=== PATIENT | male | born 1965 | race Caucasian/White ===

== ENCOUNTER 2016-03-07 02:35 | Inpatient (IN) | payer OTHER ==
[2016-03-07] MEDS ORDERED: SODIUM CHLORIDE 0.9% 1,000 ML with MVI, ADULT NO.4 WITH VIT K 10 ML, THIAMINE 100 MG, F... IV ONE ×4 (02:54)
[2016-03-07] MEDS ORDERED: SODIUM CHLORIDE 0.9% 500 ML IV STA (02:55)
--- NOTE | 2016-03-07 03:06 | ED ---
Chest Pain HPI - General Chief Complaint: Chest Pain Stated Complaint: Chest Pain Time Seen by Provider: 03/07/16 02:45 Source: patient Mode of arrival: wheelchair Limitations: no limitations - History of Present Illness MD Complaint: chest pain Onset/Timin -: days(s) Onset: during rest Pain Location: substernal Pain Radiation: LUE Severity: severe Quality: other (Not able to describe) Consistency: constant Improves With: nothing Worsens With: nothing - Related Data Home Medications Medication Instructions Recorded Confirmed No Known Home Medications [No 03/07/16 03/07/16 Known Home Medications] Allergies Allergy/AdvReac Type Severity Reaction Status Date / Time No Known Allergies Allergy Verified 03/07/16 02:43 Review of Systems ROS Statement: Those systems with pertinent positive or pertinent negative responses have been documented in the HPI. ROS Other: All systems not noted in ROS Statement are negative. Constitutional: Denies: fever, chills Respiratory: Denies: cough, dyspnea Cardiovascular: Reports: chest pain. Denies: palpitations, edema, syncope Gastrointestinal: Reports: nausea. Denies: abdominal pain, vomiting Genitourinary: Denies: dysuria, hematuria Musculoskeletal: Denies: back pain Skin: Denies: rash Neurological: Denies: headache, weakness, numbness Psychiatric: Denies: anxiety EKG Findings - EKG Results: EKG: interpreted by ANA, sinus rhythm, normal axis EKG shows: tachycardia (Rate approximately 105 bpm) - Blocks, [place], Hypertrophy, ST Abn: AV and intraventricular conduction: left anterior fascicular block - OH, Pacemaker, Normal: Myocardial infarction: septal OH (old age or indeterminate) Past Medical History Past Medical History: GERD/Reflux Additional Past Medical History / Comment(s): SEVERAL ADMISSIONS FOR ETOH INTOXICATION/WITHDRAWL AND C/P. Other HX: alcoholism, withdrawal tremors, withdrawal seizure, gastritis, upper GI bleed thought to be due to gastritis, hypomagnesemia, hypokalemia, tinnitis bilaterally. History of Any Multi-Drug Resistant Organisms: None Reported Past Surgical History: No Surgical Hx Reported, Unable to Obtain Additional Past Surgical History / Comment(s): FATTY TUMOR REMOVED FROM BACK, ORAL SX-WISDOM TEETH REMOVED. Past Anesthesia/Blood Transfusion Reactions: No Reported Reaction Past Psychological History: Anxiety, Depression Additional Psychological History / Comment(s): Pt resides alone. He is independent. Has had suicidal ideations in the past. Smoking Status: Current every day smoker Past Alcohol Use History: Abuse, Heavy Additional Past Alcohol Use History / Comment(s): smoked some marijuana as a teen and none since.pt started smoking in 1978 smokes 1.5 ppd. admits to drinking 1 fifth of vodka per day. Past Drug Use History: None Reported Additional Drug Use History / Comment(s): Smoked marijuana as a teen. - Past Family History Father History Unknown: Yes Family Medical History: Cancer, Hypertension, Myocardial Infarction (OH) Additional Family Medical History / Comment(s): Father of lung cancer at the age of 57yrs. He had a OH at the age of 49 yrs. Mother Family Medical History: Dementia Additional Family Medical History / Comment(s): Mother is 74 yrs old. General Exam Limitations: no limitations General appearance: alert, appears intoxicated, other (Tremulous) Head exam: Present: atraumatic, normocephalic Eye exam: Present: normal appearance, PERRL, EOMI, nystagmus. Absent: scleral icterus, conjunctival injection ENT exam: Present: mucous membranes dry Neck exam: Present: normal inspection, full ROM Respiratory exam: Present: wheezes (Mild expiratory). Absent: normal lung sounds bilaterally, respiratory distress, rales, rhonchi, stridor, decreased breath sounds, prolonged expiratory Cardiovascular Exam: Present: tachycardia, normal heart sounds. Absent: regular rate, systolic murmur, diastolic murmur, rubs, gallop GI/Abdominal exam: Present: soft, organomegaly. Absent: distended, tenderness, guarding, rebound, pulsatile mass, hernia Extremities exam: Present: normal inspection, normal capillary refill. Absent: pedal edema, calf tenderness Back exam: Present: normal inspection. Absent: CVA tenderness (R), CVA tenderness (L) Neurological exam: Present: alert Skin exam: Present: warm, dry, intact, normal color. Absent: rash, cyanosis, diaphoretic, erythema, petechiae, pallor, mottled Course Vital Signs 03/07/16 03/07/16 03/07/16 02:41 03:18 05:49 Temperature 98.5 F 97.8 F Pulse Rate 120 H 105 H 78 Respiratory 20 20 18 Rate Blood Pressure 123/84 131/80 148/72 O2 Sat by Pulse 94 L 98 94 L Oximetry Disposition Clinical Impression: Chest pain, Alcohol intoxication, Hypokalemia Disposition: ADMITTED IP TO THIS HOSP Condition: Poor Referrals: None,Stated [Primary Care Provider] - 1-2 days
[2016-03-07 03:20] LABS: CHCM 35.1; HDW 2.51; MCH 33.1 pg (25.0-35.0); MCV 97.3 fL (80.0-100.0); RBC 4.52 m/uL (4.30-5.90); RDW 13.2 % (11.5-15.5); WBC 3.4 k/uL (3.8-10.6); WBC (Perox) 3.34
[2016-03-07] MEDS ORDERED: MORPHINE SULFATE 4 MG/ML SYRINGE IV STA (03:32)
[2016-03-07 03:35] LABS: ALT 49 U/L (21-72); AST 52 U/L (17-59); Alkaline Phosphatase 77 U/L (38-126); Anion Gap 20 mmol/L; Blood Urea Nitrogen 5 mg/dL (9-20); Calcium 9.2 mg/dL (8.4-10.2); Carbon Dioxide 26 mmol/L (22-30); Chloride 104 mmol/L (98-107); Glucose 122 mg/dL (74-99); Magnesium 1.9 mg/dL (1.6-2.3); Non-African American GFR(MDRD) >60 (>60 ml/min/1.73 sqM); Potassium 3.1 mmol/L (3.5-5.1); Sodium 150 mmol/L (137-145); Total Bilirubin 0.4 mg/dL (0.2-1.3); Total Protein 7.6 g/dL (6.3-8.2)
[2016-03-07 03:45] LABS: Alcohol 413 mg/dL
--- NOTE | 2016-03-07 03:55 | XR ---
EXAMINATION TYPE: XR chest 1V portable DATE OF EXAM: 03/07/2016 3:03 AM COMPARISON: February 12, 2016 HISTORY: Chest pain TECHNIQUE: Single frontal view of the chest is obtained. FINDINGS: There is no focal air space opacity, pleural effusion, or pneumothorax seen. The cardiac silhouette size is within normal limits. The osseous structures are intact. IMPRESSION: 1. No acute process. 2. No significant interval change.
[2016-03-07 04:10] LABS: Add Differential Manual Differential
[2016-03-07 04:15] LABS: Manual Review Performed; Nucleated Red Blood Cells 0 /100 WBC (0-0); Total Cells Counted 100
[2016-03-07] MEDS ORDERED: RX INFO: IV CONTRAST WAS GIVEN 1 EACH MISC MISCELLANE PRN (05:13)
[2016-03-07] MEDS ORDERED: POTASSIUM CHLORIDE ER 20 MEQ TAB.ER PO STA (05:14)
[2016-03-07] MEDS ORDERED: LORazepam 2 MG/ML SYRINGE IV STA (05:42)
[2016-03-07] MEDS ORDERED: NITROGLYCERIN SL TABS 0.4 MG TAB SUBLINGUAL PRN (06:15)
[2016-03-07] MEDS ORDERED: SODIUM CHLORIDE 0.9% 1,000 ML IV SCH (06:15)
[2016-03-07] MEDS ORDERED: THIAMINE 100 MG/ML 2 ML VIAL IM STA (06:19)
[2016-03-07] MEDS ORDERED: LORazepam 2 MG/ML SYRINGE IV PRN (06:19)
--- NOTE | 2016-03-07 06:28 | CT ---
EXAMINATION TYPE: CT chest angio for PE DATE OF EXAM: 03/07/2016 6:02 AM COMPARISON: 12/30/2015 HISTORY: chest and left arm pain, elevated d-dimer R/O PE, EtOH. CT DLP: 501 mGycm Automated exposure control for dose reduction was used. CONTRAST: CT Chest for pulmonary embolism performed with with IV Contrast, patient injected with 90ml injected 10ml wasted mL of Omnipaque 350. FINDINGS: LUNGS: The lungs are grossly clear, there is no concerning parenchymal mass or nodule identified. Mi ld atelectasis and scarring is suggested in both lung bases. Biapical emphysematous changes are noted .. There is no pleural effusion or pneumothorax seen. The tracheobronchial tree is patent. MEDIASTINUM: There is satisfactory enhancement of the pulmonary artery and its branches, there is no CT evidence for pulmonary embolism. The ascending aorta measures 4.5 cm in greatest AP diameter with stable mild aneurysmal dilatation. There are no greater than 1 cm hilar or mediastinal lymph nodes. No pericardial effusion is seen. OTHER: No additional significant abnormality is seen. IMPRESSION: 1. No evidence of acute pulmonary embolism. 2. No focal lung consolidation. 3. Emphysematous changes in both lungs with mild atelectasis and scarring in both lung bases. 4. Stable 4.5 cm aneurysm of ascending aorta.
[2016-03-07] MEDS ORDERED: METOPROLOL TARTRATE 25 MG TAB PO SCH (09:00)
[2016-03-07 09:52] LABS: Creatine Kinase MB 0.7 ng/mL (0.0-2.4); Troponin I 0.032 ng/mL (0.000-0.034)
[2016-03-07] MEDS: LORazepam 2 MG/ML SYRINGE IV PRN ×7 (10:24→22:57)
[2016-03-07 10:34] VITALS: BMI 25.4
--- NOTE | 2016-03-07 14:07 | P.CRDCN ---
History of Present Illness History of present illness: Patient readmitted with chest discomfort and elevated alcohol level once again he was here last month He complains of discomfort in the chest and the left costochondral junction Alcohol level was elevated ECG is normal Cardiac enzymes are normal Review of systems: No fever chills or rigors, no cough, phlegm or expectoration , no nausea, vomiting or diarrhea, no hematuria, dysuria, no musculoskeletal complaints, no strokes or seizures, no skin lesions. He is still disoriented and groggy On examination Temperature 98.1, respirations 26, blood pressure 148/72 mmHg And neck examination is normal Heart sounds are normal Breath sounds are normal Extremities warm no edema Impression Acute alcoholism Atypical musculoskeletal chest discomfort Normal cardiac enzymes Plan Stop beta blockers Clonidine patch TTS 1 Management of alcoholism per medical team Past Medical History Past Medical History: GERD/Reflux Additional Past Medical History / Comment(s): SEVERAL ADMISSIONS FOR ETOH INTOXICATION/WITHDRAWL AND C/P. Other HX: alcoholism, withdrawal tremors, withdrawal seizure, gastritis, upper GI bleed thought to be due to gastritis, hypomagnesemia, hypokalemia, tinnitis bilaterally. History of Any Multi-Drug Resistant Organisms: None Reported Past Surgical History: No Surgical Hx Reported, Unable to Obtain Additional Past Surgical History / Comment(s): FATTY TUMOR REMOVED FROM BACK, ORAL SX-WISDOM TEETH REMOVED. Past Anesthesia/Blood Transfusion Reactions: No Reported Reaction Past Psychological History: Anxiety, Depression Additional Psychological History / Comment(s): Pt resides alone. He is independent. Has had suicidal ideations in the past. Smoking Status: Current every day smoker Past Alcohol Use History: Abuse, Heavy Additional Past Alcohol Use History / Comment(s): smoked some marijuana as a teen and none since.pt started smoking in 1978 smokes 1.5 ppd. admits to drinking 1 fifth of vodka per day. Past Drug Use History: None Reported Additional Drug Use History / Comment(s): Smoked marijuana as a teen. - Past Family History Father History Unknown: Yes Family Medical History: Cancer, Hypertension, Myocardial Infarction (DC) Additional Family Medical History / Comment(s): Father of lung cancer at the age of 57yrs. He had a DC at the age of 49 yrs. Mother Family Medical History: Dementia Additional Family Medical History / Comment(s): Mother is 74 yrs old. Medications and Allergies Home Medications Medication Instructions Recorded Confirmed Type Metoprolol Tartrate [Lopressor] 12.5 mg PO BID 03/07/16 03/07/16 History Allergies Allergy/AdvReac Type Severity Reaction Status Date / Time No Known Allergies Allergy Verified 03/07/16 11:14 Physical Exam Vitals: Vital Signs Temp Pulse Resp BP Pulse Ox 03/07/16 12:00 98.1 F 96 16 163/98 93 L 03/07/16 08:00 85 18 03/07/16 07:27 97.9 F 85 18 152/92 90 L Intake and Output 03/06/16 03/07/16 03/07/16 22:59 06:59 14:59 Output Total 250 Balance -250 Output: Urine 250 Other: Weight 94.8 kg Patient Weight 03/08/16 06:59 Weight 94.8 kg Results 03/07/16 03:12 03/07/16 03:12 Cardiac Enzymes 03/07/16 Range/Units 08:37 CK-MB (CK-2) 0.7 (0.0-2.4) ng/mL Troponin I 0.032 (0.000-0.034) ng/mL Current Medications Generic Name Dose Route Start Last Admin Trade Name Freq PRN Reason Stop Dose Admin Aspirin 325 mg 03/08/16 09:00 Aspirin PO DAILY HAILY Sodium Chloride 1,000 mls @ 100 mls/hr 03/07/16 06:15 03/07/16 10:24 Saline 0.9% IV 100 mls/hr .Q10H HAILY Administration Lorazepam 1 mg 03/07/16 06:19 Ativan IV Q2HR PRN CIWA 8 or 9 Lorazepam 1 mg 03/07/16 06:19 Ativan IV Q1HR PRN CIWA 10 to 15 Lorazepam 2 mg 03/07/16 06:19 03/07/16 12:35 Ativan IV 2 mg Q1HR PRN Administration CIWA 16 or higher Metoprolol Tartrate 25 mg 03/07/16 09:00 03/07/16 11:19 Lopressor PO 25 mg BID HAILY Administration Miscellaneous Information 1 each 03/07/16 05:13 03/07/16 05:49 Rx Info: Iv Contrast Was Given MISCELLANE 03/09/16 05:13 1 each DAILY PRN Administration Per Protocol Nitroglycerin 0.4 mg 03/07/16 06:15 Nitrostat SUBLINGUAL Q5M PRN Chest Pain Thiamine HCl 100 mg 03/07/16 17:00 Vitamin B-1 PO BID@1200,1700 HAILY Intake and Output 03/06/16 03/07/16 03/07/16 22:59 06:59 14:59 Output Total 250 Balance -250 Output: Urine 250 Other: Weight 94.8 kg Patient Weight 03/08/16 06:59 Weight 94.8 kg
[2016-03-07 16:03] LABS: Creatine Kinase MB 0.8 ng/mL (0.0-2.4); Troponin I 0.021 ng/mL (0.000-0.034)
[2016-03-07] MEDS: THIAMINE 100 MG TAB PO SCH (16:37)
[2016-03-07] MEDS: SODIUM CHLORIDE 0.45% 1,000 ML IV SCH (19:55)
[2016-03-07] MEDS ORDERED: cloNIDine 0.1 MG/24HR PATCH 1 PATCH PATCH TRANSDERM SCH (20:45)
[2016-03-07] MEDS: HEPARIN SODIUM,PORCINE 5,000 UNIT/ML 1 ML VIAL SQ SCH (22:39)
[2016-03-07] MEDS: NICOTINE 14MG/24HR PATCH TRANSDERM SCH (23:33)
[2016-03-08] MEDS: LORazepam 2 MG/ML SYRINGE IV PRN ×9 (00:09→23:39)
[2016-03-08 05:39] LABS: Basophils # (A) 0.1 k/uL (0-0.2); Basophils % (A) 1 %; CH 33.9; CHCM 34.9; Eosinophils # (A) 0.1 k/uL (0-0.7); Eosinophils % (A) 2 %; HCT 39.2 % (39.0-53.0); HGB 13.1 gm/dL (13.0-17.5); Luc # (Auto) 0.07; Luc % (Auto) 2; Lymphocytes # (A) 1.1 k/uL (1.0-4.8); Lymphocytes % (A) 31 %; MCH 32.7 pg (25.0-35.0); MCHC 33.5 g/dL (31.0-37.0); MCV 97.5 fL (80.0-100.0); Mean Platelet Volume 7.6; Monocytes # (A) 0.3 k/uL (0-1.0); Monocytes % (A) 7 %; Neutrophils # (A) 2.1 k/uL (1.3-7.7); Neutrophils % (A) 57 %; RBC 4.02 m/uL (4.30-5.90); RDW 12.7 % (11.5-15.5); WBC 3.7 k/uL (3.8-10.6); WBC (Perox) 3.89
[2016-03-08 05:51] LABS: Anion Gap 9 mmol/L; Blood Urea Nitrogen 3 mg/dL (9-20); Calcium 9.3 mg/dL (8.4-10.2); Carbon Dioxide 28 mmol/L (22-30); Chloride 101 mmol/L (98-107); Cholesterol 184 mg/dL (<200); Glucose 82 mg/dL (74-99); HDL Cholesterol 78 mg/dL (40-60); Non-African American GFR(MDRD) >60 (>60 ml/min/1.73 sqM); Sodium 138 mmol/L (137-145); Triglycerides 159 mg/dL (<150)
[2016-03-08] MEDS: SODIUM CHLORIDE 0.45% 1,000 ML IV SCH ×3 (06:20→21:43)
[2016-03-08] MEDS ORDERED: Potassium Replacement Protocol 1 EACH MISC MISCELLANE PRN (06:51)
[2016-03-08] MEDS ORDERED: ASPIRIN 325 MG TAB PO SCH (09:00)
[2016-03-08] MEDS: THIAMINE 100 MG TAB PO SCH ×2 (09:28→16:07)
[2016-03-08] MEDS: HEPARIN SODIUM,PORCINE 5,000 UNIT/ML 1 ML VIAL SQ SCH ×3 (09:28→22:08)
[2016-03-08] MEDS: NICOTINE 14MG/24HR PATCH TRANSDERM SCH (09:28)
[2016-03-08] MEDS: POTASSIUM CHLORIDE ER 20 MEQ TAB.ER PO SCH ×4 (09:28→23:40)
--- NOTE | 2016-03-08 11:51 | HP ---
DATE OF ADMISSION: Chief complaint is chest pain. HISTORY OF ILLNESS: Mr. Bryant is a 50-year-old male with known history of alcohol abuse and no other medical problems, was admitted to the hospital with acute alcohol intoxication and complaints of chest pain. Patient apparently has been having chest pain for the past 3 days, substernal, radiation to the left upper extremity and constant. No history of nausea or vomiting. Patient was found to have acute alcohol intoxication, elevated alcohol levels to 413 on admission. Otherwise, could not provide much history. Patient very lethargic and groggy at this time but patient is awake, alert, and is saturating well on room air. Serial EKGs and troponins are negative. Chest x-ray showed no acute process. No interval significant change. Patient does have elevated d-dimer and subsequent CT angiogram showed no pulmonary embolism. Patient does have stable 4.5 cm aneurysm of the ascending aorta. Complete review of systems could not be obtained from the patient. PAST MEDICAL HISTORY: GERD, previous admission with alcohol intoxication, history of alcohol withdrawal seizure, gastritis, upper GI bleed thought to be due to gastritis, hypomagnesemia, hypokalemia and tinnitus bilaterally. PAST SURGICAL HISTORY: Fatty tumor removed from the back, oral surgery wisdom tooth removed. PSYCHOSOCIAL HISTORY: Anxiety and depression. SOCIAL HISTORY: Currently an everyday smoker, smokes marijuana as a teen and none since. Patient started smoking in 1978, smokes 1.5 packs per day. Patient drinks one-fifth of vodka per day. FAMILY HISTORY: Father had cancer, hypertension, and SC. Father of lung cancer at the age of 57 years, had SC at the age of 49 years. Mother had dementia. Mother is a 74-year-old. No known drug allergies. HOME MEDICATIONS: None. PHYSICAL EXAMINATION: A 50-year-old male lying in the bed, awake, alert, very lethargic and drowsy, could not provide any history at this time. VITALS: Blood pressure 163/98, pulse is 90, respirations 16, temperature afebrile, pulse ox 93% on room air. HEENT: Atraumatic, normocephalic. Neck is supple. No JVD. CVS EXAM: S1, S2 heard. No murmurs, no gallop. LUNGS: Bilateral air entry is present. Rhonchi positive. Nonlabored breathing. No wheezing. Abdomen is soft, nontender. Bowel sounds are present. NEURO: Alert and oriented x3. No focal neurologic deficits. Cranial nerves grossly intact. EXTREMITIES: No edema. Pulses palpable bilaterally, no clubbing or cyanosis. [employer] HELPER: Awake, alert, oriented x3, but drowsy. PSYCHIATRIC: Cooperative, could not be evaluated completely. LABORATORY DATA: WBC 3.4, hemoglobin 15.0, platelets 363. D-dimer is 1.17. Sodium 150, potassium 3.1, chloride 104, bicarb is 26. BUN 5, creatinine 0.8, troponin 0.021, 0.032, and 0.021, serum alcohol is 413. EKG is normal sinus rhythm. Chest x-ray, no acute tearing. IMPRESSION: 1. Acute alcohol intoxication, will monitor for alcohol withdrawal symptoms. 2. Chest discomfort, most likely musculoskeletal. Serial EKGs and troponins are negative. 3. Hypernatremia secondary to volume depletion and dehydration. 4. Hypokalemia. 5. Previous history of alcohol intoxication and withdrawal symptoms. 6. History of alcohol gastritis with elevated d-dimer. CT angiogram is negative for pulmonary embolism. 7. Stable 4.5 cm aneurysm of the ascending aorta. 8. Deep venous thrombosis prophylaxis. DISCUSSION AND PLAN: Patient will be continued on IV fluids, patient ( ) 0.45% saline at 75 mL/h. Will continue the thiamine and multivitamins. Continue with the CIWA protocol for alcohol withdrawal symptoms and continue with the current management and further recommendations based on the clinical course.
[2016-03-08] MEDS ORDERED: CALCIUM CARBONATE 500 MG CHEWABLE PO PRN (19:48)
[2016-03-08 20:59] VITALS: RESP 16
[2016-03-08] MEDS ORDERED: SODIUM CHLORIDE 0.9% 1,000 ML IV SCH (23:30)
[2016-03-09] MEDS: LORazepam 2 MG/ML SYRINGE IV PRN ×3 (01:22→06:18)
[2016-03-09 07:56] LABS: Anion Gap 13 mmol/L; Blood Urea Nitrogen 4 mg/dL (9-20); Calcium 9.4 mg/dL (8.4-10.2); Carbon Dioxide 23 mmol/L (22-30); Chloride 104 mmol/L (98-107); Glucose 87 mg/dL (74-99); Non-African American GFR(MDRD) >60 (>60 ml/min/1.73 sqM); Potassium 3.5 mmol/L (3.5-5.1); Sodium 140 mmol/L (137-145)
[2016-03-09 08:05] VITALS: BP 146/98; PULSE 72; TEMP 98.1
[2016-03-09] MEDS: HEPARIN SODIUM,PORCINE 5,000 UNIT/ML 1 ML VIAL SQ SCH (09:17)
--- NOTE | 2016-03-09 10:25 | PN ---
DATE OF SERVICE: 03/08/2016 INTERVAL HISTORY: Mr. Bryant is a 50-year-old male with known history of alcohol abuse, was admitted to the hospital with complaints of chest pain and alcohol intoxication. Currently, patient is recently requiring Ativan IV and very drowsy and groggy, could not provide much history. Denied any chest or short of breath. No fever. No chills. No acute overnight issues. Complete review of systems could not be obtained from the patient. Current medications reviewed. PHYSICAL EXAMINATION: 50 -year-old male lying in bed comfortably, alert and oriented times three, appears to be in no apparent distress. Patient is very drowsy. VITALS: Blood pressure is 149/103. respiratory rate ( ) heart rate 74, respiration 18, temperature afebrile, pulse ox 92% on room air. HEENT: Atraumatic. Normocephalic. Neck is supple. No JVD. CVS: S1, S2 heard. No murmurs, no gallop. LUNGS: Bilateral air entry is present. No wheezing. No crackles. Nonlabored breathing. ABDOMEN: Soft, nontender, bowel sounds present. 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 Very drowsy. Able to move all his extremities. EXTREMITIES: No edema. Pulses palpable bilaterally. No clubbing. No cyanosis. PSYCHIATRIC: Cooperative. LABORATORY DATA: Reviewed sodium 138, potassium 3.0, chloride 101, bicarb is 28. BUN 3, creatinine 0.7. WBC 3.7, hemoglobin 13.1, platelets 261. IMPRESSION: 1. Acute alcohol intoxication and alcohol withdrawals requiring Ativan IV. 2. Chest discomfort most likely musculoskeletal, resolved. 3. Acute coronary syndrome serial EKGs and troponins are negative. 4. Hyponatremia secondary to volume depletion, dehydration, resolved now. 5. Hypokalemia. We will continue to replace potassium. 6. Previous history of alcohol intoxication and withdrawal symptoms and multiple admissions. 7. History of alcoholic gastritis. 8. Elevated d-dimer. CT angiogram negative for pulmonary embolism. 9. Stable 4.5 cm aneurysm ascending aorta. 10. Deep venous thrombosis prophylaxis. DISCUSSION AND PLAN: Continue with IV fluids and IV fluids will be changed to normal saline now and continue with the thiamine multivitamins and continue CIWA protocol for alcohol withdrawal symptoms and continue current management and further recommendations depending on clinical course. [facility]
--- NOTE | 2016-04-01 20:57 | DS ---
DATE OF ADMISSION: 03/08/2016 DATE OF DISCHARGE: 03/09/2016 Left AGAINST MEDICAL ADVICE on 03/09/2016 DISCHARGE DIAGNOSES: 1. Acute alcohol intoxication and alcohol withdrawals. 2. Musculoskeletal chest pain, improved. 3. History of coronary artery disease. 4. Hypernatremia secondary to volume depletion and dehydration. 5. Hypokalemia. 6. Previous history of alcohol intoxication and withdrawal symptoms and multiple admissions. 7. History of alcoholic gastritis. 8. Elevated d-dimer, CT angiogram negative for pulmonary embolism. 9. Stable 4.5 cm aneurysm of the ascending aorta. 10. Deep venous thrombosis prophylaxis with heparin subcu. HOSPITAL COURSE: Mr. Bryant is a 48-year-old male admitted to the hospital with acute alcohol intoxication and atypical chest pain. Serial EKGs and troponins are negative. Patient is being monitored for alcohol withdrawal symptoms and replacing potassium. Currently the patient was improving symptomatically and was still requiring IV Ativan. Today morning, the patient decided to leave AGAINST MEDICAL ADVICE and left AGAINST MEDICAL ADVICE by signing the AGAINST MEDICAL ADVICE form. The patient advised to follow with primary care physician and counseled for alcohol abuse. The patient left AMA on 03/09/2016.
== END 2016-03-09 08:17 | disposition left against medical advice (07) | DRG 894 ==
LOC: EC 02:35 → 3OBS 06:16 → OBSVTOIN 03-08 14:58
PROVIDERS: ADMIT Hospitalist; ATTEND Hospitalist
DX: F10.239 Alcohol dependence with withdrawal, unspecified (principal); E87.1 Hypo-osmolality and hyponatremia; I71.2 Thoracic aortic aneurysm, without rupture; E86.0 Dehydration; F10.229 Alcohol dependence with intoxication, unspecified; R07.89 Other chest pain; E87.6 Hypokalemia; F17.200 Nicotine dependence, unspecified, uncomplicated; Z82.49 Family history of ischemic heart disease and other diseases of the circulatory system
CPT/HCPCS: 36415; 71010; 71275; 80048; 80053; 80061; 80320; 82550; 82553; 83735; 84132; 84484; 85025; 85379; 93005; 94760; 96361; 96365; 96366; 96372; 96375; 96376; 99285

== ENCOUNTER 2016-03-21 10:46 | Observation (INO) | payer OTHER ==
[2016-03-21] MEDS ORDERED: NITROGLYCERIN OINT 1 INCH/GM PACKET TOPICAL STA (11:05)
[2016-03-21] MEDS ORDERED: ASPIRIN 81 MG CHEW PO STA (11:05)
[2016-03-21] MEDS ORDERED: ONDANSETRON 4 MG/2 ML VIAL IVP STA (11:09)
--- NOTE | 2016-03-21 11:12 | ED ---
General Adult HPI - General Chief complaint: Chest Pain Stated complaint: CHEST PAIN X 2 DAYS Time Seen by Provider: 03/21/16 10:50 Source: patient, RN notes reviewed Mode of arrival: ambulatory Limitations: no limitations - History of Present Illness Initial comments: This is a 50-year-old male with a past medical history significant for heavy drinking and smoking. Patient woke up this morning and stated he was having chest pain the center of his chest and some shortness of breath. Patient states the pain does not radiate anywhere. Patient denies any vomiting but states he is very nauseated. Patient denies diaphoresis. Patient denies any headache patient denies numbness weakness. Patient denies any lightheadedness dizziness or near-syncopal episode. Patient denies any recent injury or trauma. Patient denies any recent fever chills or cough. Patient denies any leg swelling. Patient states he recently drank only a few hours ago. Patient denies drug use - Related Data Home Medications Medication Instructions Recorded Confirmed Metoprolol Tartrate [Lopressor] 12.5 mg PO BID 03/07/16 03/07/16 Allergies Allergy/AdvReac Type Severity Reaction Status Date / Time No Known Allergies Allergy Verified 03/21/16 11:06 Review of Systems ROS Statement: Those systems with pertinent positive or pertinent negative responses have been documented in the HPI. ROS Other: All systems not noted in ROS Statement are negative. Past Medical History Past Medical History: GERD/Reflux Additional Past Medical History / Comment(s): SEVERAL ADMISSIONS FOR ETOH INTOXICATION/WITHDRAWL AND C/P. Other HX: alcoholism, withdrawal tremors, withdrawal seizure, gastritis, upper GI bleed thought to be due to gastritis, hypomagnesemia, hypokalemia, tinnitis bilaterally. History of Any Multi-Drug Resistant Organisms: None Reported Past Surgical History: No Surgical Hx Reported, Unable to Obtain Additional Past Surgical History / Comment(s): FATTY TUMOR REMOVED FROM BACK, ORAL SX-WISDOM TEETH REMOVED. Past Anesthesia/Blood Transfusion Reactions: No Reported Reaction Past Psychological History: Anxiety, Depression Additional Psychological History / Comment(s): Pt resides alone. He is independent. Has had suicidal ideations in the past. Smoking Status: Current every day smoker Past Alcohol Use History: Abuse, Heavy Additional Past Alcohol Use History / Comment(s): smoked some marijuana as a teen and none since.pt started smoking in 1978 smokes 1.5 ppd. admits to drinking 1 fifth of vodka per day. Past Drug Use History: None Reported Additional Drug Use History / Comment(s): Smoked marijuana as a teen. - Past Family History Father History Unknown: Yes Family Medical History: Cancer, Hypertension, Myocardial Infarction (ME) Additional Family Medical History / Comment(s): Father of lung cancer at the age of 57yrs. He had a ME at the age of 49 yrs. Mother Family Medical History: Dementia Additional Family Medical History / Comment(s): Mother is 74 yrs old. General Exam - General Exam Comments Initial Comments: GENERAL: Patient is well-developed and well-nourished. Patient is nontoxic and well- hydrated and is in mild distress. Patient is very hard of hearing ENT: Neck is soft and supple. No significant lymphadenopathy is noted. Oropharynx is clear. Moist mucous membranes. Neck has full range of motion without eliciting any pain. EYES: The sclera were anicteric and conjunctiva were pink and moist. Extraocular movements were intact and pupils were equal round and reactive to light. Eyelids were unremarkable. PULMONARY: Unlabored respirations. Good breath sounds bilaterally. No audible rales rhonchi or wheezing was noted. CARDIOVASCULAR: There is a regular rate and rhythm without any murmurs gallops or rubs. Femoral pulses are equal bilaterally ABDOMEN: Soft and nontender with normal bowel sounds. No palpable organomegaly was noted. There is no palpable pulsatile mass. SKIN: Skin is clear with no lesions or rashes and otherwise unremarkable. NEUROLOGIC: Patient is alert and oriented x3. Cranial nerves II through XII are grossly intact. Motor and sensory are also intact. Normal speech, volume and content. Symmetrical smile. MUSCULOSKELETAL: Normal extremities with adequate strength and full range of motion. No lower extremity swelling or edema. No calf tenderness. LYMPHATICS: No significant lymphadenopathy is noted PSYCHIATRIC: Patient's intoxicated status difficult to get an accurate psychiatric he does deny suicidal or homicidal ideations Limitations: no limitations Course Vital Signs 03/21/16 03/21/16 10:58 11:26 Temperature 98.7 F Pulse Rate 112 H 90 Respiratory 20 16 Rate Blood Pressure 142/106 139/96 O2 Sat by Pulse 96 95 Oximetry Medical Decision Making - Medical Decision Making EKG shows sinus tachycardia at 105 bpm [place] interval is 166 QRS is 92 QT interval 350 QTC is 462. Patient's EKG shows no ST segment elevation or depression or T- wave elevation noted. I compared this to an old EKG no acute changes are noted - Lab Data Result diagrams: 03/21/16 11:00 03/21/16 11:00 Lab Results 03/21/16 03/21/16 03/21/16 Range/Units 11:00 11:00 11:00 WBC 3.1 L (3.8-10.6) k/uL RBC 5.05 (4.30-5.90) m/uL Hgb 16.5 D (13.0-17.5) gm/dL Hct 48.6 (39.0-53.0) % MCV 96.4 (80.0-100.0) fL MCH 32.7 (25.0-35.0) pg MCHC 33.9 (31.0-37.0) g/dL RDW 13.2 (11.5-15.5) % Plt Count 134 L (150-450) k/uL Neutrophils % 29 % Lymphocytes % 57 % Monocytes % 7 % Eosinophils % 1 % Basophils % 2 % Neutrophils # 0.9 L (1.3-7.7) k/uL Lymphocytes # 1.8 (1.0-4.8) k/uL Monocytes # 0.2 (0-1.0) k/uL Eosinophils # 0.0 (0-0.7) k/uL Basophils # 0.1 (0-0.2) k/uL Polychromasia Present PT (9.0-12.0) sec INR (<1.1) APTT (22.0-30.0) sec Sodium 149 H (137-145) mmol/L Potassium 3.1 L (3.5-5.1) mmol/L Chloride 100 (98-107) mmol/L Carbon Dioxide 25 (22-30) mmol/L Anion Gap 24 mmol/L BUN 7 L (9-20) mg/dL Creatinine 0.82 (0.66-1.25) mg/dL Est GFR (MDRD) Af Amer >60 (>60 ml/min/1.73 sqM) Est GFR (MDRD) Non-Af >60 (>60 ml/min/1.73 sqM) Glucose 96 (74-99) mg/dL Calcium 8.9 (8.4-10.2) mg/dL Magnesium 2.0 (1.6-2.3) mg/dL Total Bilirubin 0.8 (0.2-1.3) mg/dL AST 127 H (17-59) U/L ALT 85 H (21-72) U/L Alkaline Phosphatase 97 (38-126) U/L Total Creatine Kinase 156 (55-170) U/L CK-MB (CK-2) 0.8 (0.0-2.4) ng/mL CK-MB (CK-2) Rel Index 0.5 Troponin I 0.029 (0.000-0.034) ng/mL Total Protein 8.1 (6.3-8.2) g/dL Albumin 4.7 (3.5-5.0) g/dL Serum Alcohol 499 mg/dL 03/21/16 Range/Units 11:00 WBC (3.8-10.6) k/uL RBC (4.30-5.90) m/uL Hgb (13.0-17.5) gm/dL Hct (39.0-53.0) % MCV (80.0-100.0) fL MCH (25.0-35.0) pg MCHC (31.0-37.0) g/dL RDW (11.5-15.5) % Plt Count (150-450) k/uL Neutrophils % % Lymphocytes % % Monocytes % % Eosinophils % % Basophils % % Neutrophils # (1.3-7.7) k/uL Lymphocytes # (1.0-4.8) k/uL Monocytes # (0-1.0) k/uL Eosinophils # (0-0.7) k/uL Basophils # (0-0.2) k/uL Polychromasia PT 10.3 (9.0-12.0) sec INR 1.0 (<1.1) APTT 24.4 (22.0-30.0) sec Sodium (137-145) mmol/L Potassium (3.5-5.1) mmol/L Chloride (98-107) mmol/L Carbon Dioxide (22-30) mmol/L Anion Gap mmol/L BUN (9-20) mg/dL Creatinine (0.66-1.25) mg/dL Est GFR (MDRD) Af Amer (>60 ml/min/1.73 sqM) Est GFR (MDRD) Non-Af (>60 ml/min/1.73 sqM) Glucose (74-99) mg/dL Calcium (8.4-10.2) mg/dL Magnesium (1.6-2.3) mg/dL Total Bilirubin (0.2-1.3) mg/dL AST (17-59) U/L ALT (21-72) U/L Alkaline Phosphatase (38-126) U/L Total Creatine Kinase (55-170) U/L CK-MB (CK-2) (0.0-2.4) ng/mL CK-MB (CK-2) Rel Index Troponin I (0.000-0.034) ng/mL Total Protein (6.3-8.2) g/dL Albumin (3.5-5.0) g/dL Serum Alcohol mg/dL Disposition Clinical Impression: Chest pain, Alcohol intoxication Disposition: ADMITTED IP TO THIS [facility] Time of Disposition: 11:57
[2016-03-21 11:20] LABS: Basophils # (A) 0.1 k/uL (0-0.2); Basophils % (A) 2 %; CH 34.3; CHCM 35.7; Eosinophils % (A) 1 %; HCT 48.6 % (39.0-53.0); HDW 2.48; Luc # (Auto) 0.13; Luc % (Auto) 4; Lymphocytes # (A) 1.8 k/uL (1.0-4.8); Lymphocytes % (A) 57 %; MCH 32.7 pg (25.0-35.0); MCHC 33.9 g/dL (31.0-37.0); MCV 96.4 fL (80.0-100.0); Monocytes # (A) 0.2 k/uL (0-1.0); Monocytes % (A) 7 %; Neutrophils # (A) 0.9 k/uL (1.3-7.7); Neutrophils % (A) 29 %; RBC 5.05 m/uL (4.30-5.90); RDW 13.2 % (11.5-15.5); WBC 3.1 k/uL (3.8-10.6); WBC (Perox) 3.21
[2016-03-21 11:21] LABS: HGB 16.5 gm/dL (13.0-17.5)
[2016-03-21 11:23] LABS: Partial Thromboplastin Time 24.4 sec (22.0-30.0); Prothrombin Time 10.3 sec (9.0-12.0)
[2016-03-21 11:25] LABS: ALT 85 U/L (21-72); AST 127 U/L (17-59); Alkaline Phosphatase 97 U/L (38-126); Anion Gap 24 mmol/L; Blood Urea Nitrogen 7 mg/dL (9-20); Calcium 8.9 mg/dL (8.4-10.2); Carbon Dioxide 25 mmol/L (22-30); Chloride 100 mmol/L (98-107); Glucose 96 mg/dL (74-99); Non-African American GFR(MDRD) >60 (>60 ml/min/1.73 sqM); Potassium 3.1 mmol/L (3.5-5.1); Sodium 149 mmol/L (137-145); Total Bilirubin 0.8 mg/dL (0.2-1.3); Total Protein 8.1 g/dL (6.3-8.2)
--- NOTE | 2016-03-21 11:29 | XR ---
EXAMINATION TYPE: XR chest 2V DATE OF EXAM: 03/21/2016 11:24 AM COMPARISON: 03/07/2016 HISTORY: Shortness of breath TECHNIQUE: Frontal and lateral views of the chest are obtained. FINDINGS: Scattered senescent parenchymal changes noted. Hyperinflation compatible with COPD. No evidence for infiltrate. No evidence for atelectasis. Heart size is stable. Mediastinal structures are stable and grossly unremarkable. No evidence for hilar prominence. Degenerative changes dorsal spine. IMPRESSION: 1. No evidence for acute pulmonary disease.
[2016-03-21 11:36] LABS: Alcohol 499 mg/dL
[2016-03-21 11:38] LABS: Polychromasia Present
[2016-03-21 11:49] LABS: Creatine Kinase MB 0.8 ng/mL (0.0-2.4); Troponin I 0.029 ng/mL (0.000-0.034)
[2016-03-21] MEDS ORDERED: LORazepam 2 MG/ML SYRINGE IV PRN (11:58)
[2016-03-21] MEDS ORDERED: NITROGLYCERIN SL TABS 0.4 MG TAB SUBLINGUAL PRN (11:59)
[2016-03-21] MEDS ORDERED: SODIUM CHLORIDE 0.9% 1,000 ML with MVI, ADULT NO.4 WITH VIT K 10 ML, THIAMINE 100 MG, F... IV ONE ×4 (13:00)
--- NOTE | 2016-03-21 13:22 | CONS ---
DATE OF CONSULTATION: CHIEF COMPLAINT: Chest pain. Aroldo is a 50-year-old gentleman with no significant past medical history who came to hospital complaining of chest pain and not feeling well. He has been drinking since yesterday and his alcohol level was significantly elevated at 499. His chest discomfort is sharp, atypical, came on at rest, mild to moderate intensity, no clear-cut relieving or exacerbating factors. Patient has hypokalemia. EKG does not reveal ischemic changes. Past medical history is negative for hypertension, diabetes, dyslipidemia. MEDICATIONS: None. Allergies are as charted. FAMILY HISTORY: Significant for premature coronary artery disease. SOCIAL HISTORY: He quit smoking and EtOH abuse. REVIEW OF SYSTEMS: HEENT is unremarkable. CARDIAC: As described above. RESPIRATORY: Negative. GI: Negative. GENITOURINARY: Negative. ALLERGY/IMMUNOLOGY: Negative. MUSCULOSKELETAL: Significant for arthritis. PSYCHOSOCIAL: Negative. ENDOCRINE: Negative. DERMATOLOGICAL: Negative. CONSTITUTIONAL: Negative. The rest of the review of systems is not relevant. On exam, comfortable at rest. Vital signs are stable. There is no jugular venous distention. Chest exam reveals good air entry bilaterally. Heart exam reveals first and second heart sounds. No gallop. Abdomen is soft. Exam of extremities did not reveal edema. Peripheral pulses are felt. Labs have been reviewed. ASSESSMENT: 1. Chest pain. 2. Ethyl alcohol intoxication. 3. Hyperkalemia. PLAN: Patient's chest discomfort is atypical. Once his alcohol wears off. He is doing well. He may be discharged home and consider an outpatient stress test on him.
[2016-03-21] MEDS: LORazepam 2 MG/ML SYRINGE IV PRN ×4 (13:37→23:24)
[2016-03-21] MEDS: POTASSIUM CHLORIDE ER 20 MEQ TAB.ER PO STA ×2 (13:37→13:40)
[2016-03-21] MEDS: POTASSIUM CHLORIDE 10 MEQ in WATER FOR INJECTION 1 100ML.BAG IVPB SCH ×2 (16:34→20:18)
[2016-03-21] MEDS ORDERED: THIAMINE 100 MG TAB PO SCH (17:00)
[2016-03-21 17:17] LABS: Creatine Kinase MB 0.6 ng/mL (0.0-2.4); Troponin I 0.027 ng/mL (0.000-0.034)
[2016-03-21] MEDS: NITROGLYCERIN OINT 1 INCH/GM PACKET TOPICAL SCH ×2 (17:37→23:24)
[2016-03-21 23:54] LABS: Creatine Kinase MB 0.6 ng/mL (0.0-2.4); Troponin I 0.024 ng/mL (0.000-0.034)
[2016-03-22] MEDS: LORazepam 2 MG/ML SYRINGE IV PRN ×11 (00:30→11:43)
[2016-03-22] MEDS ORDERED: NICOTINE 21MG/24HR PATCH TRANSDERM STA (03:25)
[2016-03-22] MEDS ORDERED: ACETAMINOPHEN TAB 325 MG TAB PO PRN (03:27)
[2016-03-22] MEDS: NITROGLYCERIN OINT 1 INCH/GM PACKET TOPICAL SCH (05:24)
[2016-03-22 06:52] LABS: Cholesterol 182 mg/dL (<200); HDL Cholesterol 86 mg/dL (40-60); Triglycerides 39 mg/dL (<150)
[2016-03-22 08:03] VITALS: RESP 18
--- NOTE | 2016-03-22 08:28 | PN ---
A 50-year-old gentleman who presented to hospital with alcohol intoxication and also had vague, atypical chest pain for which Cardiology had been consulted. Since admission, he is doing well and has not had any further episodes of chest discomfort. Three sets of cardiac enzymes have been negative. This morning, patient is free of symptoms. On exam, comfortable at rest. Vital signs are stable. Chest exam reveals good air entry bilaterally. Heart exam reveals first and second heart sounds. No gallop. Exam of the extremities did not reveal any edema. Peripheral pulses are felt. ASSESSMENT: Atypical chest pain, probably related to alcohol intoxication, myocardial infarction is ruled out. PLAN: Patient will undergo an echocardiogram today, please check his serum potassium and supplemented it as needed. Make sure that patient does not go into DT's. From my standpoint, he is stable to be discharged home.
[2016-03-22] MEDS ORDERED: ASPIRIN 325 MG TAB PO SCH (09:00)
[2016-03-22] MEDS ORDERED: NICOTINE 21MG/24HR PATCH TRANSDERM SCH (09:00)
[2016-03-22] MEDS ORDERED: POTASSIUM CHLORIDE ER 20 MEQ TAB.ER PO STA (09:33)
[2016-03-22 11:49] VITALS: BP 144/81; PULSE 97; TEMP 98.8
--- NOTE | 2016-03-22 12:08 | ECHOF ---
Referral Reason:cp MEASUREMENTS -------- HEIGHT: 188.0 cm WEIGHT: 90.3 kg BP: IVSd: 1.0 cm (0.6 - 1.1) LVIDd: 4.2 cm (3.9 - 5.3) LVPWd: 1.1 cm (0.6 - 1.1) IVSs: 1.3 cm LVIDs: 3.8 cm LVPWs: 1.6 cm Ao Diam: 3.8 cm (2.0 - 3.7) AV Cusp: 2.2 cm (1.5 - 2.6) LA Diam: 2.4 cm (2.7 - 3.8) MV EXCURSION: 10.412 mm (> 18.000) MV EF SLOPE: 82 mm/s (70 - 150) EPSS: 0.7 cm MV E Alberto: 0.61 m/s MV DecT: 219 ms MV A Alberto: 0.75 m/s MV E/A Ratio: 0.81 RAP: 5.00 mmHg RVSP: 9.35 mmHg FINDINGS -------- Sinus rhythm. This was a technically difficult study with suboptimal views. Left ventricular wall thickness is normal. Overall left ventricular systolic function is normal with, an EF between 55 - 60 %. The right ventricle is normal in size and function. The left atrium is normal in size. The right atrium is normal in size. 1.5mg of Definity was utilized for enhancement of images The aortic valve is trileaflet, and appears structurally normal. No aortic stenosis or regurgitation. There is trace mitral regurgitation. Trace tricuspid regurgitation present. The right ventricular systolic pressure, as measured by Doppler, is 9.35mmHg. Pulmonic valve appears structurally normal. The aortic root is mildy dilated. The pericardium is normal. CONCLUSIONS -------- 1. Sinus rhythm. 2. There is trace mitral regurgitation. 3. Trace tricuspid regurgitation present. 4. The right ventricular systolic pressure, as measured by Doppler, is 9.35mmHg. 5. Pulmonic valve appears structurally normal. 6. The aortic root is mildy dilated. 7. The pericardium is normal. 8. This was a technically difficult study with suboptimal views. 9. Left ventricular wall thickness is normal. 10. Overall left ventricular systolic function is normal with, an EF between 55 - 60 %. 11. The right ventricle is normal in size and function. 12. The left atrium is normal in size. 13. The right atrium is normal in size. 14. 1.5mg of Definity was utilized for enhancement of images 15. The aortic valve is trileaflet, and appears structurally normal. No aortic stenosis or regurgitation. CREDIT CONTROL ADMINISTRATOR: June Martinez RDCS
--- NOTE | 2016-03-22 16:01 | HP ---
HISTORY AND PHYSICAL EXAMINATION AND DISCHARGE SUMMARY DATE OF ADMISSION: 03/21/16. CHIEF COMPLAINT: Chest pain. HISTORY OF PRESENT ILLNESS: The patient is a 50-year-old male with a past medical history of gastroesophageal reflux disease, hypertension, alcohol abuse, coming into the hospital with a chief complaint of chest pain. The patient states that he woke up yesterday morning with chest pain, which is pain is in the center of his chest and with some difficulty in breathing, denies having any radiation, no aggravating or ( ) factors. The patient denies having any nausea or vomiting. No loss of consciousness. No diaphoresis. The patient denies having any swelling of his extremities. No history of recent travel. Patient denies having any abdominal pain, constipation, or diarrhea. REVIEW OF SYSTEMS: All 13 review of systems are done and negative except for ones mentioned in the HPI. Past medical history significant for gastroesophageal reflux disease, hypertension, and alcohol abuse. Patient's home medications: Metoprolol 12.5 mg p.o. b.i.d. ALLERGIES: No known drug allergies. SOCIAL HISTORY: The patient drinks every day. He said he drinks one fifth every day and smokes 1 pack per day. FAMILY HISTORY: Positive for coronary artery disease hypertension. Father of lung cancer at age of 57. PAST SURGICAL HISTORY: Fatty tumor removed from his back and wisdom tooth removal. On examination, the patient's vitals: Temperature is 99.4, heart rate of 98, respiratory rate 18, blood pressure 139/83, saturating at 95% on room air. GENERAL EXAMINATION: Patient appears to be no acute distress. He has mild tremors. HEAD: Atraumatic, normocephalic. EYES: Pupils, round, and reactive to light. NECK: No JVD. CARDIOVASCULAR: S1 and S2 tachycardic. RESPIRATORY: Bilateral breath sounds are positive. No wheezing or crackles. ABDOMEN: Soft, nontender. Bowel sounds positive. EXTREMITIES: No edema. No cyanosis, no clubbing. Peripheral pulses are felt. 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 No focal deficits. SKIN: No rash. MUSCULOSKELETAL: No joint swelling or deformity. Patient's labs: White count of 3.1, hemoglobin 16.5, platelets of 134. Sodium 149, potassium 3.1, chloride 100, bicarb 25, BUN 7, creatinine 0.82, troponin 0.209, 0.0270, 0.024, AST 127, ALT 85, potassium 3.7 serum alcohol level of 499. ASSESSMENT AND PLAN: 1. Chest pain. 2. Acute alcohol intoxication. 3. Hypokalemia. 4. Delirium tremens. The patient had serial troponins and EKGs that were within normal limits cardiology has been consulted and they recommended stress test as outpatient. Patient has some mild tremors, but he states that he has tremor at baseline and that he is back to his baseline. So the patient is being discharged home in a fair condition. Follow up with patient is advised to follow up with his primary care physician in 1 to 2 weeks. He said he does not have a primary care physician, so we give him the list of primary care physicians in our area. Diet; cardiac heart healthy diet the patient is counseled on is quitting alcohol but he said he is not ready for it. Patient is being discharged to home in a fair condition today. Patient's discharge medications: metoprolol 12.5 mg p.o. b.i.d. Nitrostat 0.4 mg subcu k 5 minutes p.r.n. for chest pain, thiamine 100 mg p.o. b.i.d. and folic acid 1 pill daily.
== END 2016-03-22 12:00 | disposition home or self-care (01) ==
LOC: EC 10:46 → 3OBS 11:59
PROVIDERS: ADMIT Internal Medicine; ATTEND Internal Medicine
DX: R07.89 Other chest pain (principal); F10.221 Alcohol dependence with intoxication delirium; E87.6 Hypokalemia; I10 Essential (primary) hypertension; Z82.49 Family history of ischemic heart disease and other diseases of the circulatory system; T51.0X1A Toxic effect of ethanol, accidental (unintentional), initial encounter; Y90.8 Blood alcohol level of 240 mg/100 ml or more; Z79.899 Other long term (current) drug therapy; F17.200 Nicotine dependence, unspecified, uncomplicated
CPT/HCPCS: 99285 ×2; 96375 ×3; 96365; 96366; 96376 ×2; 36415; 93005; 80061; 80053; 82550; 82553; 83735; 84132; 84484; 85025; 85610; 85730; 80320; 71020; G0378 ×2; C8929; S4990; J2060 ×2; J3411; J2405; Q9957; J3480; 93306

== ENCOUNTER 2016-03-28 14:47 | Inpatient (IN) | payer OTHER ==
[2016-03-28] MEDS ORDERED: ONDANSETRON 4 MG/2 ML VIAL IVP STA (15:24)
[2016-03-28] MEDS ORDERED: NITROGLYCERIN OINT 1 INCH/GM PACKET TOPICAL STA (15:24)
[2016-03-28] MEDS ORDERED: ASPIRIN 81 MG CHEW PO STA (15:24)
[2016-03-28] MEDS ORDERED: FAMOTIDINE 20 MG/2 ML VIAL IV STA (15:24)
--- NOTE | 2016-03-28 15:28 | ED ---
General Adult HPI - General Chief complaint: Chest Pain Stated complaint: Chest Pain Time Seen by Provider: 03/28/16 15:09 Source: patient Mode of arrival: wheelchair Limitations: no limitations - History of Present Illness Initial comments: Patient is a pleasant 50-year-old male presenting to the emergency department complaining of chest discomfort. Onset of symptoms is not entirely clear. Patient has had joint symptoms for the past couple of weeks. Patient has discomfort in his chest with radiation to left arm. Patient states there may be some shortness of breath. Patient does have nausea. Patient admits to drinking again heavily over the past couple months. Prior to this patient was sober for the past 10 years. No diaphoresis. - Related Data Home Medications Medication Instructions Recorded Confirmed Metoprolol Tartrate [Lopressor] 12.5 mg PO BID 03/21/16 03/28/16 Previous Rx's Medication Instructions Recorded Folic Acid 1 mg PO DAILY #30 tablet 03/22/16 Nitroglycerin Sl Tabs [Nitrostat] 0.4 mg SUBLINGUAL Q5M PRN #10 tab 03/22/16 Thiamine [Vitamin B-1] 100 mg PO BID@1200,1700 #30 tab 03/22/16 Allergies Allergy/AdvReac Type Severity Reaction Status Date / Time No Known Allergies Allergy Verified 03/28/16 15:39 Review of Systems ROS Statement: Those systems with pertinent positive or pertinent negative responses have been documented in the HPI. ROS Other: All systems not noted in ROS Statement are negative. Constitutional: Denies: fever Eyes: Denies: eye pain ENT: Denies: ear pain Respiratory: Reports: dyspnea. Denies: cough Cardiovascular: Reports: chest pain Endocrine: Denies: fatigue Gastrointestinal: Reports: abdominal pain, nausea Genitourinary: Denies: dysuria Musculoskeletal: Denies: back pain Skin: Denies: rash Neurological: Denies: weakness Past Medical History Past Medical History: Chest Pain / Angina, GERD/Reflux Additional Past Medical History / Comment(s): SEVERAL ADMISSIONS FOR ETOH INTOXICATION/WITHDRAWL AND C/P. Other HX: alcoholism, withdrawal tremors, withdrawal seizure, gastritis, upper GI bleed thought to be due to gastritis, hypomagnesemia, hypokalemia, tinnitis bilaterally. History of Any Multi-Drug Resistant Organisms: None Reported Past Surgical History: No Surgical Hx Reported, Unable to Obtain Additional Past Surgical History / Comment(s): FATTY TUMOR REMOVED FROM BACK, ORAL SX-WISDOM TEETH REMOVED. Past Anesthesia/Blood Transfusion Reactions: No Reported Reaction Past Psychological History: Anxiety, Depression Additional Psychological History / Comment(s): Pt resides alone. He is independent. Has had suicidal ideations in the past. Smoking Status: Current every day smoker Past Alcohol Use History: Abuse, Heavy Additional Past Alcohol Use History / Comment(s): smoked some marijuana as a teen and none since.pt started smoking in 1978 smokes 1.5 ppd. admits to drinking 1 fifth of vodka per day. Past Drug Use History: None Reported Additional Drug Use History / Comment(s): Smoked marijuana as a teen. - Past Family History Father History Unknown: Yes Family Medical History: Cancer, Hypertension, Myocardial Infarction (MS) Additional Family Medical History / Comment(s): Father of lung cancer at the age of 57yrs. He had a MS at the age of 49 yrs. Mother Family Medical History: Dementia Additional Family Medical History / Comment(s): Mother is 74 yrs old. General Exam Limitations: no limitations General appearance: alert, in no apparent distress Head exam: Present: atraumatic Eye exam: Present: normal appearance, PERRL ENT exam: Present: normal oropharynx Neck exam: Present: normal inspection Respiratory exam: Present: normal lung sounds bilaterally. Absent: chest wall tenderness Cardiovascular Exam: Present: regular rate, normal rhythm Expanded Peripheral pulses: 2+: Radial (R), Radial (L), Posterior Tibialis (R), Posterior Tibialis (L) GI/Abdominal exam: Present: soft, tenderness (Mild epigastric tenderness to palpation). Absent: distended Extremities exam: Present: normal inspection. Absent: pedal edema, calf tenderness Neurological exam: Present: alert Psychiatric exam: Present: normal affect, normal mood Skin exam: Present: normal color Course Vital Signs 03/28/16 03/28/16 14:55 16:10 Temperature 98.7 F Pulse Rate 121 H 78 Respiratory 20 18 Rate Blood Pressure 137/104 138/79 O2 Sat by Pulse 95 92 L Oximetry EKG Findings - EKG Comments: EKG Findings:: Normal sinus rhythm at 90. Normal intervals. Left axis. Septal Q waves. No acute ST change. Previous EKG dated March 212016 with similar findings. Medical Decision Making - Medical Decision Making Patient reevaluated and resting comfortably in bed. Patient case was discussed in detail with Dr. Gonzalez, who will admit for hospital call. - Lab Data Result diagrams: 03/28/16 15:05 03/28/16 15:05 Lab Results 03/28/16 03/28/16 03/28/16 Range/Units 15:05 15:05 15:05 WBC 3.7 L (3.8-10.6) k/uL RBC 4.77 (4.30-5.90) m/uL Hgb 15.6 (13.0-17.5) gm/dL Hct 45.8 (39.0-53.0) % MCV 96.1 (80.0-100.0) fL MCH 32.8 (25.0-35.0) pg MCHC 34.1 (31.0-37.0) g/dL RDW 13.6 (11.5-15.5) % Plt Count 136 L (150-450) k/uL Neutrophils % (Manual) 28.0 % Lymphocytes % (Manual) 54.0 % Monocytes % (Manual) 18.0 % Neutrophils # (Manual) 1.0 L (1.3-7.7) k/uL Lymphocytes # (Manual) 2.0 (1.0-4.8) k/uL Monocytes # (Manual) 0.7 (0-1.0) k/uL Nucleated RBCs 0 (0-0) /100 WBC Manual Slide Review Performed RBC Morphology Normal PT (9.0-12.0) sec INR (<1.1) APTT (22.0-30.0) sec Sodium 148 H (137-145) mmol/L Potassium 3.1 L (3.5-5.1) mmol/L Chloride 101 (98-107) mmol/L Carbon Dioxide 27 (22-30) mmol/L Anion Gap 20 mmol/L BUN 7 L (9-20) mg/dL Creatinine 0.80 (0.66-1.25) mg/dL Est GFR (MDRD) Af Amer >60 (>60 ml/min/1.73 sqM) Est GFR (MDRD) Non-Af >60 (>60 ml/min/1.73 sqM) Glucose 100 H (74-99) mg/dL Calcium 8.8 (8.4-10.2) mg/dL Magnesium 2.1 (1.6-2.3) mg/dL Total Bilirubin 0.7 (0.2-1.3) mg/dL AST 126 H (17-59) U/L ALT 101 H (21-72) U/L Alkaline Phosphatase 99 (38-126) U/L Total Creatine Kinase 125 (55-170) U/L CK-MB (CK-2) 0.9 (0.0-2.4) ng/mL CK-MB (CK-2) Rel Index 0.7 Troponin I 0.023 (0.000-0.034) ng/mL Total Protein 7.8 (6.3-8.2) g/dL Albumin 4.6 (3.5-5.0) g/dL Amylase 55 (30-110) U/L Lipase 353 H (23-300) U/L Serum Alcohol 539 mg/dL 03/28/16 Range/Units 15:05 WBC (3.8-10.6) k/uL RBC (4.30-5.90) m/uL Hgb (13.0-17.5) gm/dL Hct (39.0-53.0) % MCV (80.0-100.0) fL MCH (25.0-35.0) pg MCHC (31.0-37.0) g/dL RDW (11.5-15.5) % Plt Count (150-450) k/uL Neutrophils % (Manual) % Lymphocytes % (Manual) % Monocytes % (Manual) % Neutrophils # (Manual) (1.3-7.7) k/uL Lymphocytes # (Manual) (1.0-4.8) k/uL Monocytes # (Manual) (0-1.0) k/uL Nucleated RBCs (0-0) /100 WBC Manual Slide Review RBC Morphology PT 9.6 (9.0-12.0) sec INR 0.9 (<1.1) APTT 23.6 (22.0-30.0) sec Sodium (137-145) mmol/L Potassium (3.5-5.1) mmol/L Chloride (98-107) mmol/L Carbon Dioxide (22-30) mmol/L Anion Gap mmol/L BUN (9-20) mg/dL Creatinine (0.66-1.25) mg/dL Est GFR (MDRD) Af Amer (>60 ml/min/1.73 sqM) Est GFR (MDRD) Non-Af (>60 ml/min/1.73 sqM) Glucose (74-99) mg/dL Calcium (8.4-10.2) mg/dL Magnesium (1.6-2.3) mg/dL Total Bilirubin (0.2-1.3) mg/dL AST (17-59) U/L ALT (21-72) U/L Alkaline Phosphatase (38-126) U/L Total Creatine Kinase (55-170) U/L CK-MB (CK-2) (0.0-2.4) ng/mL CK-MB (CK-2) Rel Index Troponin I (0.000-0.034) ng/mL Total Protein (6.3-8.2) g/dL Albumin (3.5-5.0) g/dL Amylase (30-110) U/L Lipase (23-300) U/L Serum Alcohol mg/dL - Radiology Data Interpreted by me: Chest x-ray interpreted by myself shows no acute process. Disposition Clinical Impression: Alcohol intoxication, Chest pain Disposition: ADMITTED IP TO THIS HOSP
[2016-03-28 15:46] LABS: INR 0.9 (<1.1); Partial Thromboplastin Time 23.6 sec (22.0-30.0); Prothrombin Time 9.6 sec (9.0-12.0)
[2016-03-28 15:48] LABS: Aty Lym Flag Slight; CHCM 35.5; HCT 45.8 % (39.0-53.0); HDW 2.45; HGB 15.6 gm/dL (13.0-17.5); MCH 32.8 pg (25.0-35.0); MCHC 34.1 g/dL (31.0-37.0); MCV 96.1 fL (80.0-100.0); Mean Platelet Volume 8.4; RBC 4.77 m/uL (4.30-5.90); RDW 13.6 % (11.5-15.5); WBC 3.7 k/uL (3.8-10.6)
[2016-03-28 15:52] LABS: ALT 101 U/L (21-72); AST 126 U/L (17-59); Alkaline Phosphatase 99 U/L (38-126); Amylase 55 U/L (30-110); Anion Gap 20 mmol/L; Blood Urea Nitrogen 7 mg/dL (9-20); Calcium 8.8 mg/dL (8.4-10.2); Carbon Dioxide 27 mmol/L (22-30); Chloride 101 mmol/L (98-107); Glucose 100 mg/dL (74-99); Magnesium 2.1 mg/dL (1.6-2.3); Non-African American GFR(MDRD) >60 (>60 ml/min/1.73 sqM); Potassium 3.1 mmol/L (3.5-5.1); Sodium 148 mmol/L (137-145); Total Bilirubin 0.7 mg/dL (0.2-1.3); Total Protein 7.8 g/dL (6.3-8.2)
[2016-03-28 16:01] LABS: Alcohol 539 mg/dL
[2016-03-28 16:12] LABS: Creatine Kinase MB 0.9 ng/mL (0.0-2.4); Troponin I 0.023 ng/mL (0.000-0.034)
[2016-03-28] MEDS ORDERED: POTASSIUM CHLORIDE ER 20 MEQ TAB.ER PO STA (16:12)
[2016-03-28 16:14] LABS: Add Differential Manual Differential
[2016-03-28 16:16] LABS: Nucleated Red Blood Cells 0 /100 WBC (0-0); Total Cells Counted 100
[2016-03-28 16:17] LABS: Manual Review Performed; RBC Morphology Normal
[2016-03-28] MEDS ORDERED: NITROGLYCERIN SL TABS 0.4 MG TAB SUBLINGUAL PRN (16:37)
[2016-03-28] MEDS ORDERED: THIAMINE 100 MG/ML 2 ML VIAL IM STA (16:38)
[2016-03-28] MEDS ORDERED: LORazepam 2 MG/ML SYRINGE IV PRN ×2 (16:38)
--- NOTE | 2016-03-28 16:46 | XR ---
EXAMINATION TYPE: XR chest 2V DATE OF EXAM: 03/28/2016 4:09 PM COMPARISON: 03/21/2016 INDICATION: Chest pain, left arm numbness TECHNIQUE: Single frontal view of the chest is obtained. FINDINGS: The heart size is normal. The pulmonary vasculature is normal. The lungs are clear. No significant interval changes evident IMPRESSION: 1. No acute pulmonary process.
[2016-03-28] MEDS: POTASSIUM CHLORIDE 10 MEQ, LIDOCAINE 2% INJ 10 MG in SODIUM CHLORIDE 0.9% 100 ML IVPB SCH ×2 (16:53→18:05)
[2016-03-28] MEDS: THIAMINE 100 MG TAB PO SCH (17:39)
--- NOTE | 2016-03-28 21:34 | HP ---
DATE OF ADMISSION: 03/28/2016 CHIEF COMPLAINT: Chest pain, alcohol intoxication. HISTORY OF PRESENT ILLNESS: 50-year-old white male who presented to the ER with chest discomfort for the last couple weeks radiating down his left arm and he has had shortness of breath and nausea. He admits to drinking over the last few months, prior sober 10 years. His alcohol level is 505 and he was started on CIWA protocol and admitted. Home medicines: Metoprolol. 12.5 b.i.d. REVIEW OF SYSTEMS: Unobtainable as the patient is obtunded, he arouses to a groan and then goes back to sleep. PAST MEDICAL HISTORY: Chest pain, angina, GERD, reflux, several admissions in the past for alcohol intoxication withdrawal, hypomagnesemia, hyperkalemia and ( ), fatty tumor of his back, ( ) wisdom teeth removed, anxiety, depression. SOCIAL HISTORY: He lives alone independent, suicidal ideations in the past, current every day smoker, heavy abuse of alcohol, some marijuana as a teen. He smoked 1.5 packs a day and a fifth of vodka a day. Smoker as a teen. FAMILY HISTORY: Father has cancer, hypertension, myocardial infarction, father of lung cancer age 57, [place] age 49, mother dementia age 74. PHYSICAL EXAMINATION: Thin, cachectic obtunded ( ) exam. NEUROLOGIC: Unobtainable. CARDIOVASCULAR: S1 and S2, some tachycardia. LUNGS: Clear. GI: Soft. HEMATOLOGIC: Negative Homans. PSYCHIATRIC: Fair mood and affect. NEUROLOGIC: Alert and oriented x0. PSYCH: Flat mood and affect. Integument: Dry mucous membranes, poor skin turgor. VITAL SIGNS: Temperature 98.7, pulse is 78 to 120, respiratory rate 18 to 20, blood pressure is 130s/79-104, O2 is 92% to 95%. EKG sinus rhythm, white count of 3.7, sodium 148, potassium 3.1. Platelet count 136. ASSESSMENT: 1. Alcohol intoxication. 2. Atypical chest pain. 3. CIWA protocol. 4. Rule out myocardial infarction. 5. Alcohol, CIWA protocol. Please see further orders.
[2016-03-28 22:06] LABS: Creatine Kinase MB 0.7 ng/mL (0.0-2.4); Troponin I 0.022 ng/mL (0.000-0.034)
[2016-03-28] MEDS: NITROGLYCERIN OINT 1 INCH/GM PACKET TOPICAL SCH (22:55)
[2016-03-28] MEDS: LORazepam 2 MG/ML SYRINGE IV PRN (22:55)
[2016-03-29] MEDS: LORazepam 2 MG/ML SYRINGE IV PRN ×14 (01:34→22:19)
[2016-03-29 05:42] LABS: Basophils % (A) 1 %; CH 33.8; CHCM 34.6; Eosinophils # (A) 0.1 k/uL (0-0.7); Eosinophils % (A) 2 %; HCT 38.5 % (39.0-53.0); HDW 2.46; HGB 12.9 gm/dL (13.0-17.5); Luc # (Auto) 0.06; Luc % (Auto) 2; Lymphocytes # (A) 0.8 k/uL (1.0-4.8); Lymphocytes % (A) 28 %; MCH 32.9 pg (25.0-35.0); MCHC 33.6 g/dL (31.0-37.0); MCV 98.1 fL (80.0-100.0); Mean Platelet Volume 8.6; Monocytes # (A) 0.3 k/uL (0-1.0); Monocytes % (A) 10 %; Neutrophils # (A) 1.6 k/uL (1.3-7.7); Neutrophils % (A) 57 %; RBC 3.93 m/uL (4.30-5.90); RDW 13.6 % (11.5-15.5); WBC 2.8 k/uL (3.8-10.6); WBC (Perox) 3.07
[2016-03-29 05:53] LABS: ALT 91 U/L (21-72); AST 120 U/L (17-59); Alkaline Phosphatase 78 U/L (38-126); Anion Gap 14 mmol/L; Blood Urea Nitrogen 10 mg/dL (9-20); Calcium 8.8 mg/dL (8.4-10.2); Carbon Dioxide 28 mmol/L (22-30); Chloride 101 mmol/L (98-107); Cholesterol 169 mg/dL (<200); Glucose 82 mg/dL (74-99); HDL Cholesterol 85 mg/dL (40-60); Non-African American GFR(MDRD) >60 (>60 ml/min/1.73 sqM); Potassium 3.2 mmol/L (3.5-5.1); Sodium 143 mmol/L (137-145); Total Bilirubin 1.1 mg/dL (0.2-1.3); Total Protein 6.5 g/dL (6.3-8.2); Triglycerides 45 mg/dL (<150)
[2016-03-29] MEDS: NITROGLYCERIN OINT 1 INCH/GM PACKET TOPICAL SCH ×2 (05:54→11:39)
[2016-03-29 06:30] LABS: Creatine Kinase MB 0.5 ng/mL (0.0-2.4); Troponin I 0.018 ng/mL (0.000-0.034)
[2016-03-29] MEDS: ASPIRIN 325 MG TAB PO SCH (07:43)
--- NOTE | 2016-03-29 08:14 | US ---
EXAMINATION TYPE: US abdomen complete DATE OF EXAM: 03/29/2016 7:45 AM COMPARISON: 09/21/2015 CLINICAL HISTORY: lft high/pancreatitis. h/o etoh EXAM MEASUREMENTS: Liver Length: 20.1 cm Gallbladder Wall: 0.1 cm CBD: 0.5 cm Spleen: obscured Right Kidney: 12.5 x 4.4 x 6.5 cm Left Kidney: 13.4 x 5.8 x 5.6 cm TECHNOLOGIST IMPRESSION: Enlarge, attenuating liver indicative of fatty infiltrate; no gross abnorm alities identified Pancreas: Obscured by bowel gas Liver: enlarged, hyperechoic, attenuating. Lesion seen on previous exam within the right lobe is no longer evident. Gallbladder: No stones seen, the gallbladder is somewhat less prominent. Evidence for sonographic Chandler's sign: no CBD: wnl Spleen: Obscured by overlying bowel gas Right Kidney: No hydronephrosis or masses seen Left Kidney: No hydronephrosis or masses seen Upper IVC: wnl Abd Aorta: Obscured by overlying bowel gas There is no ascites. IMPRESSION: Exam is limited. Findings compatible with fatty infiltration of the liver with hepatomega ly.
--- NOTE | 2016-03-29 08:33 | CONS ---
DATE OF CONSULTATION: A 50-year-old gentleman who is actually just in the hospital last week, comes back in with EtOH intoxication and along with it had some chest discomfort. His primary problem seems to be that he is anxious, agitated, probably will go through DT's withdrawal. His chest discomfort is atypical and noncardiac, myocardial infarction is ruled out and he does not require further work-up at this time. Past medical history is negative for hypertension, diabetes, dyslipidemia. Medications include folic acid, thiamine, Lopressor, Nitrostat. ALLERGIES: No known drug allergies. Family history is negative for premature coronary artery disease. Social history is significant for EtOH abuse and smoking. REVIEW OF SYSTEMS: HEENT is unremarkable. CARDIAC: As described above. RESPIRATORY: Negative. GI: Negative. GENITOURINARY: Negative. ALLERGY/IMMUNOLOGY: Negative. MUSCULOSKELETAL: Significant. DERM: Negative. CONSTITUTIONAL: Negative. The rest of the system review is not relevant. On exam, comfortable at rest. Vital signs are stable. There is no jugular venous distention. Chest exam reveals good air entry bilaterally. Heart exam reveals first and second heart sounds. No gallop. Abdomen is soft. Exam of extremities did not reveal edema. Peripheral pulses are felt. [employer] REPRESENTATIVE exam did not reveal focal neurological deficits. EKG does not reveal ischemic changes. Cardiac enzymes are negative. ASSESSMENT: 1. Atypical chest pain. 2. Ethyl alcohol intoxication. No further cardiac work-up from cardiac standpoint.
[2016-03-29] MEDS: NICOTINE 21MG/24HR PATCH TRANSDERM SCH (10:30)
[2016-03-29] MEDS ORDERED: MULTIVITAMINS, THERA 1 EACH TAB PO SCH (12:00)
--- NOTE | 2016-03-29 12:26 | P.PN ---
Subjective A 50-year-old male who presented to the emergency room with acute alcohol intoxication. Patient was just in the hospital last week for similar. Patient has a long history of alcohol abuse. Patient states he drinks a fifth of vodka daily. Patient was concerned and came into the emergency room feeling anxious agitated fell acute is going through DVT withdrawals. Patient additionally was reportedly experiencing chest pain. Cardiology consultation was requested. Patient was seen by Dr. Trejo. The discomfort in his chest was a typical there was no indication of acute coronary syndrome. Cardiac enzymes 3 sets were negative. Cardiology indicated that there was no further cardiac workup at this time patient did have an ultrasound of the abdomen there was no ascites. Fatty infiltration of the liver compatible with hepatomegaly noted on admission the patient's potassium was 3.1 in which it was corrected. Patient was started on protocol using Ativan for impending DTs Patient is stating is anxious to be discharged needs to go home and pay his bills" Objective - Vital Signs Vital signs: Vital Signs Temp 97 F L 03/29/16 08:00 Pulse 95 03/29/16 08:00 Resp 18 03/29/16 08:00 BP 143/87 03/29/16 08:00 Pulse Ox 92 L 03/29/16 08:00 Intake & Output 03/28/16 03/29/16 03/29/16 18:59 06:59 18:59 Intake Total 240 1590 Balance 240 1590 Weight 92.1 kg Intake: IV 240 0.9NS @ KVO 240 Intake, IV Titration 100 Amount Potassium Chloride 10 meq 100 Lidocaine 2% Inj 10 mg In Sodium Chloride 0.9% 100 ml @ 100 mls/hr IVPB Q1HR [facility] Rx#:[id number] Oral 240 1250 Other: Voiding Method Toilet Urinal - Exam Physical exam 50-year-old male looking older than stated age easily agitated Lungs essentially clear on room air Heart S1-S2 audible regular Abdomen flat nontender no nausea no vomiting no frequent stooling Extremities no edema noted no tremors - Labs CBC & Chem 7: 03/29/16 05:27 03/29/16 05:27 Labs: Abnormal Lab Results - Last 24 Hours (Table) 03/28/16 03/29/16 03/29/16 Range/Units 21:03 05:27 05:27 WBC 2.8 L (3.8-10.6) k/uL RBC 3.93 L (4.30-5.90) m/uL Hgb 12.9 L (13.0-17.5) gm/dL Hct 38.5 L (39.0-53.0) % Plt Count 102 L (150-450) k/uL Lymphocytes # 0.8 L (1.0-4.8) k/uL Potassium 3.2 L (3.5-5.1) mmol/L AST 120 H (17-59) U/L ALT 91 H (21-72) U/L HDL Cholesterol 85 H (40-60) mg/dL Lipase 312 H (23-300) U/L Assessment and Plan Plan: Impression Present on admission acute alcohol intoxication with agitation anxiety likely due to impending DTs Chronic alcoholism Present on admission hypokalemic Present on admission thrombocytopenia suspect due to alcohol abuse chronic Mildly elevated hypernatremia suspect due to alcohol abuse Present on admission elevated AST and ALT suspect due to chronic alcoholism Present on admission atypical chest pain no evidence of acute coronary syndrome Plan Continue with the Ativan per protocol for impending DTs Cardiology indicates no further workup could be discharged from a cardiac perspective Potassium replaced Resume home meds as appropriate DVT and GI prophylaxis IV hydration Repeat labs in the morning The above dictated assessment and findings were discussed with Dr. Forrester Impression and the plan of care have been dictated as directed. Jenny Riojas nurse practitioner acting as a scribe for Dr. Forrester
[2016-03-29] MEDS: SODIUM CHLORIDE 0.9% 1,000 ML IV SCH (13:19)
[2016-03-29] MEDS: POTASSIUM CHLORIDE ER 20 MEQ TAB.ER PO SCH ×2 (13:19→15:03)
[2016-03-29] MEDS: FAMOTIDINE 20 MG TAB PO SCH ×2 (13:19→20:16)
[2016-03-29] MEDS: THIAMINE 100 MG TAB PO SCH ×2 (13:20→15:51)
--- NOTE | 2016-03-29 14:04 | HP ---
DATE OF ADMISSION: CHIEF COMPLAINT: A 50-year-old male with alcohol intoxication with alcohol level of 504 and chest pain. HISTORY OF PRESENT ILLNESS: This 50-year-old white male with a prior history of alcoholism. He had been drinking for a few months. Apparently, he was drinking very heavily over the past couple of months but he has been sober for 10 years. He has been having some chest pain and discomfort down the left arm and came to the hospital with alcohol intoxication and chest pain. Cardiology has been consulted. He is on [facility] protocol for alcohol withdrawal. HOME MEDICATIONS: Metoprolol 12.5 b.i.d. ALLERGIES: Negative. REVIEW OF SYSTEMS: Unobtainable as patient is pretty much obtunded. PAST MEDICAL HISTORY: Angina, GERD, reflux, several admissions for alcohol withdrawal. Alcoholism. He had a GI bleed before for gastritis. SURGERIES: Had a fatty tumor removed from his back, oral wisdom teeth removed. PSYCH HISTORY: He has anxiety, depression. He is a current every day smoker, heavy abuse, A fifth of vodka per day. FAMILY HISTORY: Father had cancer, hypertension, myocardial infarction, lung cancer at age 57, [place] at 49, mother had dementia at 74. PHYSICAL EXAM: Vital signs are reviewed. CARDIOVASCULAR: S1, S2. LUNGS: Transmitted upper airway sounds. HEMATOLOGIC: Negative Homans. PSYCH: Fair mood and affect. NEUROLOGIC: Alert and oriented x3. ENT: Normal. Pharynx ( ) soft, distended due to possible fluid wave right upper quadrant, possibility of hepatomegaly. NECK: Supple. No adenopathy. PSYCH: He is obtunded. NEURO: Alert and oriented cannot assess, he is obtunded. Temp 98. 7, pulse is 90 to 110, respiratory rate is 16 to 18, blood pressure is 130s/80s to 100/90s, O2 is 95% on room air. EKG shows normal sinus rhythm. LABS: 148 on sodium, potassium 3.1, BUN is 7, creatinine 0.80, 3.7 on the white count, glucose 100, AST 126, 101 is ALT. ASSESSMENT: 1. Acute alcohol withdrawal. 2. Acute alcoholic obtundation with hepatic encephalopathy. Will need to rule out chest pain, rule out myocardial infarction. Please see further orders.
[2016-03-29 15:10] VITALS: BMI 24.0
--- NOTE | 2016-03-29 16:45 | P.GSCN ---
History of Present Illness Consult date: 03/29/16 Reason for Consult: Pancreatitis Requesting physician: Yinka Forrester History of present illness: Patient is a 50-year-old male referred from Dr. Yinka Forrester with medical history significant for GERD, alcoholism, gastritis, upper GI bleed, anxiety and depression, nicotine dependence. Patient states he is a recovered alcoholic for 10 years but started drinking again over the past couple months. No prior history of colonoscopy or EGD. Patient admitted through the emergency department with complaints of chest discomfort radiating to his left arm associated with nausea. Admission labs with evidence of elevated liver enzymes with AST of 126 and ALT of 101. Lipase elevated at 353. Serum alcohol 539 on admission. Ultrasound of abdomen with evidence of fatty liver with hepatomegaly. Surgical consult requested for pancreatitis and emesis. Upon examination, patient complains of feeling anxious. Patient reports slight nausea without vomiting. Denies chills, fevers, shortness of breath, chest pain , or abdominal pain. Denies hematemesis, melena, or hematochezia. Patient denies being diagnosed with pancreatitis in the past. Reports flatus with bowel movement. AST decreased to 120, ALT decreased to 91. Lipase within normal limits at 195. Patient afebrile. WBC 2.8. Hemoglobin 12.9. Past Medical History Past Medical History: Chest Pain / Angina, GERD/Reflux Additional Past Medical History / Comment(s): SEVERAL ADMISSIONS FOR ETOH INTOXICATION/WITHDRAWL AND C/P. Other HX: alcoholism, withdrawal tremors, withdrawal seizure, gastritis, upper GI bleed thought to be due to gastritis, hypomagnesemia, hypokalemia, tinnitis bilaterally. History of Any Multi-Drug Resistant Organisms: None Reported Past Surgical History: No Surgical Hx Reported, Unable to Obtain Additional Past Surgical History / Comment(s): FATTY TUMOR REMOVED FROM BACK, ORAL SX-WISDOM TEETH REMOVED. Past Anesthesia/Blood Transfusion Reactions: No Reported Reaction Past Psychological History: Anxiety, Depression Additional Psychological History / Comment(s): Pt resides alone. He is independent. Has had suicidal ideations in the past. Smoking Status: Current every day smoker Past Alcohol Use History: Abuse, Heavy Additional Past Alcohol Use History / Comment(s): smoked some marijuana as a teen and none since.pt started smoking in 1978 smokes 1.5 ppd. admits to drinking 1 fifth of vodka per day. Past Drug Use History: None Reported Additional Drug Use History / Comment(s): Smoked marijuana as a teen. - Past Family History Father History Unknown: Yes Family Medical History: Cancer, Hypertension, Myocardial Infarction ([place]) Additional Family Medical History / Comment(s): Father of lung cancer at the age of 57yrs. He had a [place] at the age of 49 yrs. Mother Family Medical History: Dementia Additional Family Medical History / Comment(s): Mother is 74 yrs old. Medications and Allergies Home Medications Medication Instructions Recorded Confirmed Type Metoprolol Tartrate [Lopressor] 12.5 mg PO BID 03/21/16 03/28/16 History Allergies Allergy/AdvReac Type Severity Reaction Status Date / Time No Known Allergies Allergy Verified 03/28/16 15:39 Surgical - Exam Vital Signs Temp Pulse Resp BP Pulse Ox 98.7 F 121 H 20 137/104 95 03/28/16 14:55 03/28/16 14:55 03/28/16 14:55 03/28/16 14:55 03/28/16 14:55 GENERAL: Pt awake and alert, well-nourished, in no acute distress. EYES: Pupils equal and round. Sclera anicteric, conjunctiva are normal. ENT: Dry mucous membranes. LUNGS: Breath sounds clear to auscultation bilaterally. No wheezes, rales, or rhonchi. HEART: Heart S1, S2, no S3 or S4. Regular rate and rhythm. No murmurs, rubs or gallops. ABDOMEN: Soft, nontender, nondistended, normoactive bowel sounds. No guarding, no rebound. No masses or organomegaly appreciated. NEUROLOGICAL: Pt oriented x 3. Results - Labs 03/29/16 05:27 03/29/16 05:27 - Imaging US - abdomen: report reviewed Assessment and Plan Plan: Impression: 1. Acute pancreatitis, present on admission suspect secondary to chronic heavy alcohol abuse. 2. Elevated liver enzymes, present on admission, suspect secondary to alcoholic hepatitis. 3. Acute alcohol intoxication. 4. Anemia. Hemoglobin 12.9 from 15.6 on admission, possible hemodilution. No evidence of overt bleeding. Plan: 1. Continue IV hydration, continue GI prophylaxis. Continue supportive treatment and pain management. Continue medical management. Repeat CBC in a.m. The above impression and plan have been discussed and directed by Dr. Olivia. Noé MILLER acting as scribe for Dr. Olivia.
[2016-03-30] MEDS: LORazepam 2 MG/ML SYRINGE IV PRN ×4 (01:03→08:01)
[2016-03-30] MEDS: SODIUM CHLORIDE 0.9% 1,000 ML IV SCH (01:50)
[2016-03-30 07:24] VITALS: BP 148/106; PULSE 68; RESP 16; TEMP 98.2
[2016-03-30] MEDS: NICOTINE 21MG/24HR PATCH TRANSDERM SCH (08:01)
[2016-03-30] MEDS: ASPIRIN 325 MG TAB PO SCH (08:02)
[2016-03-30] MEDS: FAMOTIDINE 20 MG TAB PO SCH (08:02)
[2016-03-30 09:09] LABS: Basophils % (A) 1 %; CH 33.8; CHCM 34.5; Eosinophils # (A) 0.1 k/uL (0-0.7); Eosinophils % (A) 2 %; HCT 36.4 % (39.0-53.0); HDW 2.44; HGB 12.4 gm/dL (13.0-17.5); Luc # (Auto) 0.11; Luc % (Auto) 4; Lymphocytes # (A) 0.6 k/uL (1.0-4.8); Lymphocytes % (A) 22 %; MCH 33.6 pg (25.0-35.0); MCHC 34.1 g/dL (31.0-37.0); MCV 98.3 fL (80.0-100.0); Mean Platelet Volume 9.1; Monocytes # (A) 0.3 k/uL (0-1.0); Monocytes % (A) 11 %; Neutrophils # (A) 1.8 k/uL (1.3-7.7); Neutrophils % (A) 61 %; RBC 3.71 m/uL (4.30-5.90); RDW 13.3 % (11.5-15.5); WBC 2.9 k/uL (3.8-10.6); WBC (Perox) 3.21
[2016-03-30 09:24] LABS: Anion Gap 13 mmol/L; Calcium 9.2 mg/dL (8.4-10.2); Carbon Dioxide 22 mmol/L (22-30); Chloride 103 mmol/L (98-107); Cholesterol 173 mg/dL (<200); Glucose 137 mg/dL (74-99); HDL Cholesterol 78 mg/dL (40-60); Non-African American GFR(MDRD) >60 (>60 ml/min/1.73 sqM); Sodium 138 mmol/L (137-145); Total Bilirubin 2.3 mg/dL (0.2-1.3); Triglycerides 102 mg/dL (<150)
[2016-03-30 09:35] LABS: AST 77 U/L (17-59); Alkaline Phosphatase 70 U/L (38-126); Blood Urea Nitrogen 6 mg/dL (9-20); Potassium 3.5 mmol/L (3.5-5.1)
[2016-03-30 09:36] LABS: ALT 75 U/L (21-72)
--- NOTE | 2016-03-31 09:41 | DS ---
DATE OF ADMISSION: 03/29/2016 DATE OF DISCHARGE: 03/30/2016 DISCHARGE MEDICATIONS: 1. Lopressor 12.5 b.i.d. 2. Folic acid 1 mg daily. 3. Thiamine. 4. Vitamins. 5. Nitro sublingual. CONDITION: Stable. PROGNOSIS: Guarded. He will need alcohol rehab. He wants to go home on Foley's Day to spend time with his family. Cardiology saw him in the hospital, said his pain was noncardiac in nature and did not recommend any workup, just alcohol withdrawal protocol. He was started on CIWA protocol for which endured for 2 to 3 days. He started eat well and he wanted to be discharged home. He was up ambulating prior to discharge. His labs will be checked prior to discharge here to make sure everything is normal. He has probably pancytopenia secondary to alcohol intake. He will follow up with his primary care doctor in 1 to 2 days to recheck his CBC and electrolytes. He understands this.
== END 2016-03-30 10:00 | disposition home or self-care (01) | DRG 896 ==
LOC: EC 14:47 → 3OBS 16:38 → OBSVTOIN 03-29 16:03 → 4MS4W 03-29 17:49
PROVIDERS: ADMIT Family Medicine; ATTEND Family Medicine
DX: F10.231 Alcohol dependence with withdrawal delirium (principal); K85.90 Acute pancreatitis without necrosis or infection, unspecified; D61.818 Other pancytopenia; D69.59 Other secondary thrombocytopenia; K76.0 Fatty (change of) liver, not elsewhere classified; K72.90 Hepatic failure, unspecified without coma; D64.9 Anemia, unspecified; F17.200 Nicotine dependence, unspecified, uncomplicated; E87.6 Hypokalemia; K21.9 Gastro-esophageal reflux disease without esophagitis; Z81.8 Family history of other mental and behavioral disorders; Z82.49 Family history of ischemic heart disease and other diseases of the circulatory system; Y90.8 Blood alcohol level of 240 mg/100 ml or more; Z79.899 Other long term (current) drug therapy
CPT/HCPCS: 36415; 71020; 76700; 80053; 80061; 80320; 82150; 82550; 82553; 83690; 83735; 84484; 85025; 85610; 85730; 93005; 96365; 96366; 96372; 96375; 96376; 99285

== ENCOUNTER 2016-04-09 22:55 | Observation (INO) | payer OTHER ==
[2016-04-09] MEDS ORDERED: SODIUM CHLORIDE 0.9% 1,000 ML with MVI, ADULT NO.4 WITH VIT K 10 ML, THIAMINE 100 MG, F... IV ONE ×4 (23:00)
--- NOTE | 2016-04-09 23:00 | ED ---
General Adult HPI - General Stated complaint: chest pain Time Seen by Provider: 04/09/16 22:55 Source: RN notes reviewed - History of Present Illness Initial comments: This is a 50-year-old male who presents emergency department intoxicated. Patient states he was having chest pain is unable to tell me when it began. Patient denies any difficulty breathing or shortness of breath per patient does complain of some epigastric tenderness. Patient denies any fever or chills patient is a smoker he states any does have a chronic cough no worse than normal. Patient denies any headache patient denies numbness weakness. Patient denies any vomiting or diarrhea. Patient states he only drank a little tonight. Patient denies any injury or trauma - Related Data Home Medications Medication Instructions Recorded Confirmed Metoprolol Tartrate [Lopressor] 12.5 mg PO BID 03/21/16 03/28/16 Previous Rx's Medication Instructions Recorded Folic Acid 1 mg PO DAILY #30 tablet 03/22/16 Nitroglycerin Sl Tabs [Nitrostat] 0.4 mg SUBLINGUAL Q5M PRN #10 tab 03/22/16 Thiamine [Vitamin B-1] 100 mg PO BID@1200,1700 #30 tab 03/22/16 Allergies Allergy/AdvReac Type Severity Reaction Status Date / Time No Known Allergies Allergy Verified 03/28/16 15:39 Review of Systems ROS Statement: Those systems with pertinent positive or pertinent negative responses have been documented in the HPI. ROS Other: All systems not noted in ROS Statement are negative. Past Medical History Past Medical History: Chest Pain / Angina, GERD/Reflux Additional Past Medical History / Comment(s): SEVERAL ADMISSIONS FOR ETOH INTOXICATION/WITHDRAWL AND C/P. Other HX: alcoholism, withdrawal tremors, withdrawal seizure, gastritis, upper GI bleed thought to be due to gastritis, hypomagnesemia, hypokalemia, tinnitis bilaterally. History of Any Multi-Drug Resistant Organisms: None Reported Past Surgical History: No Surgical Hx Reported, Unable to Obtain Additional Past Surgical History / Comment(s): FATTY TUMOR REMOVED FROM BACK, ORAL SX-WISDOM TEETH REMOVED. Past Anesthesia/Blood Transfusion Reactions: No Reported Reaction Past Psychological History: Anxiety, Depression Additional Psychological History / Comment(s): Pt resides alone. He is independent. Has had suicidal ideations in the past. Smoking Status: Current every day smoker Past Alcohol Use History: Abuse, Heavy Additional Past Alcohol Use History / Comment(s): smoked some marijuana as a teen and none since.pt started smoking in 1978 smokes 1.5 ppd. admits to drinking 1 fifth of vodka per day. Past Drug Use History: None Reported Additional Drug Use History / Comment(s): Smoked marijuana as a teen. - Past Family History Father History Unknown: Yes Family Medical History: Cancer, Hypertension, Myocardial Infarction ([place]) Additional Family Medical History / Comment(s): Father of lung cancer at the age of 57yrs. He had a [place] at the age of 49 yrs. Mother Family Medical History: Dementia Additional Family Medical History / Comment(s): Mother is 74 yrs old. General Exam - General Exam Comments Initial Comments: GENERAL: Patient is well-developed and well-nourished. Patient is nontoxic and well- hydrated and is in no acute distress. Patient appears intoxicated ENT: Neck is soft and supple. No significant lymphadenopathy is noted. Oropharynx is clear. Moist mucous membranes. Neck has full range of motion without eliciting any pain. EYES: The sclera were anicteric and conjunctiva were pink and moist. Extraocular movements were intact and pupils were equal round and reactive to light. Eyelids were unremarkable. PULMONARY: Unlabored respirations. Good breath sounds bilaterally. No audible rales rhonchi or wheezing was noted. CARDIOVASCULAR: There is a regular rate and rhythm without any murmurs gallops or rubs. ABDOMEN: Soft and nontender with normal bowel sounds. No palpable organomegaly was noted. There is no palpable pulsatile mass. SKIN: Skin is clear with no lesions or rashes and otherwise unremarkable. NEUROLOGIC: Patient is alert and oriented 2. Cranial nerves II through XII are grossly intact. Motor and sensory are also intact. Normal speech, volume and content. Symmetrical smile. Cerebellar exam grossly intact. MUSCULOSKELETAL: Normal extremities with adequate strength and full range of motion. No lower extremity swelling or edema. No calf tenderness. LYMPHATICS: No significant lymphadenopathy is noted PSYCHIATRIC: Normal psychiatric evaluation. Course Vital Signs 04/09/16 22:59 Temperature 98.9 F Pulse Rate 92 Respiratory 16 Rate Blood Pressure 140/97 O2 Sat by Pulse 97 Oximetry Medical Decision Making - Medical Decision Making EKG shows a normal sinus rhythm at 86 bpm MI interval is 176 QRS is under QT interval 380 QTC is 454. Patient's EKG shows no ST segment elevation or depression or T-wave abdomen is noted - Lab Data Result diagrams: 04/09/16 23:04 04/09/16 23:04 Lab Results 04/09/16 04/09/16 04/09/16 Range/Units 23:04 23:04 23:04 WBC 3.6 L (3.8-10.6) k/uL RBC 4.72 (4.30-5.90) m/uL Hgb 15.6 D (13.0-17.5) gm/dL Hct 44.5 (39.0-53.0) % MCV 94.3 (80.0-100.0) fL MCH 33.1 (25.0-35.0) pg MCHC 35.1 (31.0-37.0) g/dL RDW 13.8 (11.5-15.5) % Plt Count 211 D (150-450) k/uL Neutrophils % 35 % Lymphocytes % 47 % Monocytes % 10 % Eosinophils % 1 % Basophils % 3 % Neutrophils # 1.3 (1.3-7.7) k/uL Lymphocytes # 1.7 (1.0-4.8) k/uL Monocytes # 0.3 (0-1.0) k/uL Eosinophils # 0.1 (0-0.7) k/uL Basophils # 0.1 (0-0.2) k/uL PT (9.0-12.0) sec INR (<1.1) APTT (22.0-30.0) sec Sodium 148 H (137-145) mmol/L Potassium 3.0 L* (3.5-5.1) mmol/L Chloride 102 (98-107) mmol/L Carbon Dioxide 28 (22-30) mmol/L Anion Gap 18 mmol/L BUN 4 L (9-20) mg/dL Creatinine 0.80 (0.66-1.25) mg/dL Est GFR (MDRD) Af Amer >60 (>60 ml/min/1.73 sqM) Est GFR (MDRD) Non-Af >60 (>60 ml/min/1.73 sqM) Glucose 94 (74-99) mg/dL Calcium 8.8 (8.4-10.2) mg/dL Magnesium 2.2 (1.6-2.3) mg/dL Total Bilirubin 0.6 (0.2-1.3) mg/dL AST 87 H (17-59) U/L ALT 60 (21-72) U/L Alkaline Phosphatase 87 (38-126) U/L Total Creatine Kinase 201 H (55-170) U/L CK-MB (CK-2) 1.3 (0.0-2.4) ng/mL CK-MB (CK-2) Rel Index 0.6 Troponin I 0.019 (0.000-0.034) ng/mL Total Protein 7.8 (6.3-8.2) g/dL Albumin 4.5 (3.5-5.0) g/dL Amylase 42 (30-110) U/L Lipase 206 (23-300) U/L 04/09/16 Range/Units 23:04 WBC (3.8-10.6) k/uL RBC (4.30-5.90) m/uL Hgb (13.0-17.5) gm/dL Hct (39.0-53.0) % MCV (80.0-100.0) fL MCH (25.0-35.0) pg MCHC (31.0-37.0) g/dL RDW (11.5-15.5) % Plt Count (150-450) k/uL Neutrophils % % Lymphocytes % % Monocytes % % Eosinophils % % Basophils % % Neutrophils # (1.3-7.7) k/uL Lymphocytes # (1.0-4.8) k/uL Monocytes # (0-1.0) k/uL Eosinophils # (0-0.7) k/uL Basophils # (0-0.2) k/uL PT 10.4 (9.0-12.0) sec INR 1.0 (<1.1) APTT 23.6 (22.0-30.0) sec Sodium (137-145) mmol/L Potassium (3.5-5.1) mmol/L Chloride (98-107) mmol/L Carbon Dioxide (22-30) mmol/L Anion Gap mmol/L BUN (9-20) mg/dL Creatinine (0.66-1.25) mg/dL Est GFR (MDRD) Af Amer (>60 ml/min/1.73 sqM) Est GFR (MDRD) Non-Af (>60 ml/min/1.73 sqM) Glucose (74-99) mg/dL Calcium (8.4-10.2) mg/dL Magnesium (1.6-2.3) mg/dL Total Bilirubin (0.2-1.3) mg/dL AST (17-59) U/L ALT (21-72) U/L Alkaline Phosphatase (38-126) U/L Total Creatine Kinase (55-170) U/L CK-MB (CK-2) (0.0-2.4) ng/mL CK-MB (CK-2) Rel Index Troponin I (0.000-0.034) ng/mL Total Protein (6.3-8.2) g/dL Albumin (3.5-5.0) g/dL Amylase (30-110) U/L Lipase (23-300) U/L Disposition Clinical Impression: Alcohol intoxication, Chest pain, Hypokalemia Disposition: ADMITTED IP TO THIS [facility] Time of Disposition: 23:58
[2016-04-09 23:16] LABS: Basophils # (A) 0.1 k/uL (0-0.2); Basophils % (A) 3 %; CH 33.9; CHCM 36.1; Eosinophils # (A) 0.1 k/uL (0-0.7); Eosinophils % (A) 1 %; HCT 44.5 % (39.0-53.0); HDW 2.64; Luc # (Auto) 0.14; Luc % (Auto) 4; Lymphocytes # (A) 1.7 k/uL (1.0-4.8); Lymphocytes % (A) 47 %; MCH 33.1 pg (25.0-35.0); MCHC 35.1 g/dL (31.0-37.0); MCV 94.3 fL (80.0-100.0); Monocytes # (A) 0.3 k/uL (0-1.0); Monocytes % (A) 10 %; Neutrophils # (A) 1.3 k/uL (1.3-7.7); Neutrophils % (A) 35 %; RBC 4.72 m/uL (4.30-5.90); RDW 13.8 % (11.5-15.5); WBC 3.6 k/uL (3.8-10.6); WBC (Perox) 3.47
[2016-04-09] MEDS ORDERED: ONDANSETRON 4 MG/2 ML VIAL IVP STA (23:16)
[2016-04-09 23:24] LABS: Partial Thromboplastin Time 23.6 sec (22.0-30.0); Prothrombin Time 10.4 sec (9.0-12.0)
[2016-04-09 23:28] LABS: ALT 60 U/L (21-72); AST 87 U/L (17-59); Alkaline Phosphatase 87 U/L (38-126); Amylase 42 U/L (30-110); Anion Gap 18 mmol/L; Blood Urea Nitrogen 4 mg/dL (9-20); Calcium 8.8 mg/dL (8.4-10.2); Carbon Dioxide 28 mmol/L (22-30); Chloride 102 mmol/L (98-107); Glucose 94 mg/dL (74-99); HGB 15.6 gm/dL (13.0-17.5); Magnesium 2.2 mg/dL (1.6-2.3); Non-African American GFR(MDRD) >60 (>60 ml/min/1.73 sqM); Sodium 148 mmol/L (137-145); Total Bilirubin 0.6 mg/dL (0.2-1.3); Total Protein 7.8 g/dL (6.3-8.2)
--- NOTE | 2016-04-09 23:40 | XR ---
EXAMINATION TYPE: XR chest 2V DATE OF EXAM: 04/09/2016 11:34 PM COMPARISON: 03/28/2016 HISTORY: Chest pain TECHNIQUE: Frontal and lateral views of the chest are obtained. FINDINGS: There is no heart failure nor confluent pneumonic infiltrate. There are no hilar masses. C ostophrenic angles are clear. There are chest leads. Heart size is normal. Bony thorax appears intact . IMPRESSION: No active cardiopulmonary disease. No change.
[2016-04-09] MEDS ORDERED: POTASSIUM CHLORIDE ER 20 MEQ TAB.ER PO STA (23:44)
[2016-04-09 23:48] LABS: Creatine Kinase MB 1.3 ng/mL (0.0-2.4); Troponin I 0.019 ng/mL (0.000-0.034)
[2016-04-09] MEDS ORDERED: ASPIRIN 81 MG CHEW PO STA (23:58)
[2016-04-09] MEDS ORDERED: NITROGLYCERIN SL TABS 0.4 MG TAB SUBLINGUAL PRN (23:58)
[2016-04-10] MEDS: NITROGLYCERIN OINT 1 INCH/GM PACKET TOPICAL SCH ×2 (00:06→05:39)
[2016-04-10] MEDS: LORazepam 2 MG/ML SYRINGE IV PRN ×10 (01:08→22:37)
[2016-04-10 04:27] LABS: Cholesterol 199 mg/dL (<200); HDL Cholesterol 80 mg/dL (40-60); Triglycerides 88 mg/dL (<150)
[2016-04-10] MEDS ORDERED: Potassium Replacement Protocol 1 EACH MISC MISCELLANE PRN (04:30)
[2016-04-10 04:43] LABS: Troponin I 0.023 ng/mL (0.000-0.034)
[2016-04-10] MEDS: POTASSIUM CHLORIDE ER 20 MEQ TAB.ER PO SCH ×4 (04:44→22:08)
[2016-04-10] MEDS: ONDANSETRON 4 MG/2 ML VIAL IVP PRN ×3 (07:40→20:39)
[2016-04-10 09:55] LABS: Creatine Kinase MB 1.1 ng/mL (0.0-2.4); Troponin I 0.019 ng/mL (0.000-0.034)
[2016-04-10 10:03] VITALS: BMI 24.3
--- NOTE | 2016-04-10 11:01 | CONS ---
DATE OF CONSULTATION: Mr. Bryant is a 50-year-old male with a history of chronic alcoholism, history of chronic tobacco use who presented with symptoms of chest discomfort. Patient had multiple admissions with similar findings over the last year or so. He has not been feeling well, having nausea, vomiting as well as having the chest discomfort. He most recently was in the hospital about a week or so ago and at that time there was no evidence of active cardiac issue. He had an echocardiogram on the march that showed a preserved left ventricular size and systolic function. Patient has dyspnea on exertion and unfortunately drinks on a daily basis. He has occasional palpitations. No syncope. He has no PND, orthopnea, or peripheral edema. He takes no medications at home. His coronary risk factors are remarkable for the smoking. No history of documented hypertension, hyperlipidemia or diabetes. REVIEW OF SYSTEMS: RESPIRATORY SYSTEM: He has dyspnea on exertion as well as cough. GI SYSTEM: He had nausea and vomiting. SYSTEM: No dysuria or hematuria. NERVOUS SYSTEM: He had a prior history of syncope related to his alcoholism. PHYSICAL EXAMINATION: He is a 50-year-old male; alert, mildly nauseated. Blood pressure 129/77 with the heart rate in the 90s. HEAD: Normocephalic. EYES: Sclerae anicteric. NECK: Good upstroke, no bruit. LUNGS: With decreased air exchange. No wheezes. HEART: Regular rate and rhythm. S1, S2, no S3, no rub. ABDOMEN: Soft, nontender, positive bowel sounds. No organomegaly. EXTREMITIES: No edema. Lab data revealed a BUN and creatinine of 4 and 0.8. Potassium 3.0. Hemoglobin of 15.6. Troponin 0.019, 0.023 and 0.019. His alcohol level is 468. His EKG revealed a sinus mechanism, left axis deviation, poor R wave progression from V1 to V3. Chest x-ray shows no acute infiltrate. IMPRESSION: 1. Acute alcoholic intoxication. 2. Chest discomfort atypical for ischemic heart disease. 3. Chronic tobacco use. RECOMMENDATIONS: From the cardiac standpoint, there is no evidence of any cardiac abnormality at this time and no further cardiac workup will be needed. We will see him on as needed basis. [facility] CENTERLizandro
[2016-04-10] MEDS: METOPROLOL TARTRATE 25 MG TAB PO SCH ×2 (11:20→20:42)
[2016-04-10] MEDS: DIAZEPAM 5 MG TAB PO SCH ×3 (11:20→22:07)
[2016-04-10] MEDS: THIAMINE 100 MG TAB PO SCH (16:25)
--- NOTE | 2016-04-10 19:23 | HP ---
DATE OF ADMISSION: 04/09/2016 PRESENTING COMPLAINT: Drunk. HISTORY OF PRESENTING COMPLAINT: This is a 50-year-old patient who has had multiple admissions for alcohol intake. Yet again presents with alcohol withdrawal, getting drunk. Patient has a history of an alcohol related seizure. Does smoke and drinks about a fifth of alcohol a day. Patient has tremors, shaky and anxious right now. REVIEW OF SYSTEMS: CONSTITUTIONAL: Tired. HEENT: None. RESPIRATORY: None. CARDIOVASCULAR: None. GASTROINTESTINAL: Some heartburn. GENITOURINARY: None. MUSCULOSKELETAL: None. Dermatologic: None. LYMPHATICS: None. PSYCHIATRY: Anxious. NEUROLOGICAL: Some tremors. Past medical history of GERD, chronic alcoholism, alcohol-induced seizures, gastritis. PAST SURGICAL HISTORY: Fatty tumor removed from the back, recent and remote. SOCIAL HISTORY: The patient smokes about a pack and a half day and drinks about a fifth of alcohol every day. Lives by himself. Not employed. FAMILY HISTORY: Father had lung cancer, father also had a heart attack age 49. HOME MEDICATIONS: Ativan every 6 hours p.r.n. ALLERGIES: None. On examination vital signs on presentation: Temperature 98.9, pulse 110, respiratory rate 16, blood pressure 147/94, pulse ox 97% on 2 liters. GENERAL APPEARANCE: Well built, lying in bed, shaking, tired, lethargic. EYES: Pupils equal. Conjunctivae normal. HEENT: Oral cavity normal. External appearance of nose and ears normal. NECK: JVD not raised. Mass not palpable. RESPIRATORY: Effort normal. LUNGS: Slightly decreased breath sounds. CARDIOVASCULAR: First and second sounds normal. No edema. ABDOMEN: Soft, nontender. Liver and spleen not palpable. LYMPHATIC: No lymph nodes palpable in the neck and axilla. Psychiatry is alert and oriented x3. Mood and affect anxious appearing. NEUROLOGICAL: Pupils equal. Cranial nerves grossly intact. Tremors are present. INVESTIGATIONS: White count 3.6, hemoglobin 13.6. Potassium 3, BUN 4, creatinine 0.80, AST 87, serum alcohol 468. ASSESSMENT: 1. Acute alcohol intoxication on presentation. 2. Acute alcohol withdrawal syndrome. 3. Severe hypokalemia from alcoholism. 4. Hyponatremia from free water deficit. 5. Chronic nicotine dependence. PLAN: Patient put on aggressive hydration. We will put the patient on Valium 7.5 q.6 with beta francisco javier, will cut back on ( ) drive, also given nicotine patch, ( ) counselled on smoking and alcohol. Social work should follow. DVT prophylaxis.
[2016-04-10] MEDS: NICOTINE 21MG/24HR PATCH TRANSDERM SCH (20:41)
[2016-04-10] MEDS: ENOXAPARIN 40 MG/0.4 ML SYRINGE SQ SCH (20:41)
[2016-04-10] MEDS: DEXTROSE 5%-0.9% NACL 1,000 ML IV SCH (20:42)
[2016-04-11] MEDS: LORazepam 2 MG/ML SYRINGE IV PRN ×9 (00:34→23:59)
[2016-04-11] MEDS: POTASSIUM CHLORIDE ER 20 MEQ TAB.ER PO SCH ×2 (03:04→04:02)
[2016-04-11] MEDS: DIAZEPAM 5 MG TAB PO SCH ×5 (05:35→23:58)
[2016-04-11 07:29] LABS: Anion Gap 9 mmol/L; Blood Urea Nitrogen 6 mg/dL (9-20); Calcium 9.1 mg/dL (8.4-10.2); Carbon Dioxide 28 mmol/L (22-30); Chloride 103 mmol/L (98-107); Glucose 84 mg/dL (74-99); Non-African American GFR(MDRD) >60 (>60 ml/min/1.73 sqM); Potassium 3.6 mmol/L (3.5-5.1); Sodium 140 mmol/L (137-145)
[2016-04-11] MEDS ORDERED: ASPIRIN 325 MG TAB PO SCH (09:00)
[2016-04-11] MEDS: ENOXAPARIN 40 MG/0.4 ML SYRINGE SQ SCH (09:02)
[2016-04-11] MEDS: NICOTINE 21MG/24HR PATCH TRANSDERM SCH (09:02)
[2016-04-11] MEDS: METOPROLOL TARTRATE 25 MG TAB PO SCH ×3 (09:02→22:26)
[2016-04-11] MEDS: THIAMINE 100 MG TAB PO SCH ×2 (12:22→17:20)
[2016-04-11] MEDS: ONDANSETRON 4 MG/2 ML VIAL IVP PRN (12:23)
[2016-04-11] MEDS: DEXTROSE 5%-0.9% NACL 1,000 ML IV SCH ×3 (19:26→19:41)
[2016-04-12] MEDS: ONDANSETRON 4 MG/2 ML VIAL IVP PRN (00:53)
[2016-04-12] MEDS: LORazepam 2 MG/ML SYRINGE IV PRN ×5 (01:33→14:45)
[2016-04-12] MEDS: DEXTROSE 5%-0.9% NACL 1,000 ML IV SCH ×2 (03:35→14:45)
[2016-04-12 03:42] VITALS: RESP 18
--- NOTE | 2016-04-12 08:27 | PN ---
DATE OF SERVICE: 04/11/2016 PRESENTING COMPLAINT: Alcohol withdrawal. INTERVAL HISTORY: This is an alcoholic with alcohol withdrawals, still having tremors, tachycardic. Did tolerate liquid diet. Review of systems done for constitutional, cardiovascular, GI, pulmonary, musculoskeletal, neurological; relevant findings as above. Current medications include Valium 7.5 q.6 p.r.n. and Lopressor. On examination, temperature 99.4, pulse 60, respiratory rate 16, blood pressure 125/90, pulse ox 97% on room air. GENERAL APPEARANCE: Lying in bed, shaky. EYES: Pupils equal. Conjunctivae normal. NECK: JVD not raised. Mass not palpable. RESPIRATORY: Effort normal. LUNGS: Diminished breath sounds. CARDIOVASCULAR: First and second sounds normal. No edema. ABDOMEN: Soft, nontender. Liver and spleen not palpable. PSYCHIATRY: Anxious appearing. NEUROLOGICAL: Tremors, shaky is present. INVESTIGATIONS: Potassium 3.6. ASSESSMENT: 1. Acute alcohol intoxication on presentation. 2. Acute alcohol withdrawal syndrome, slow to respond. 3. Severe hypokalemia from alcoholism. 4. Hypernatremia from free water deficit. 5. Chronic nicotine dependence. 6. Hypernatremia from free water deficit. PLAN: Patient's dose of Valium increased to ( ) increase Lopressor 25 mg 3 times a day. Other medication and treatment plan is to continue. Diet will be advanced. Keep with D5W.
[2016-04-12] MEDS: NICOTINE 21MG/24HR PATCH TRANSDERM SCH (08:31)
[2016-04-12] MEDS: DIAZEPAM 5 MG TAB PO SCH (08:32)
[2016-04-12] MEDS: METOPROLOL TARTRATE 25 MG TAB PO SCH ×2 (08:32→16:16)
[2016-04-12] MEDS: ENOXAPARIN 40 MG/0.4 ML SYRINGE SQ SCH (08:32)
[2016-04-12 11:57] VITALS: TEMP 97.9
[2016-04-12] MEDS: THIAMINE 100 MG TAB PO SCH (14:49)
[2016-04-12 15:57] VITALS: BP 122/86; PULSE 83
[2016-04-12] MEDS ORDERED: DIAZEPAM 5 MG TAB PO SCH (16:00)
--- NOTE | 2016-04-13 08:21 | DS ---
DATE OF ADMISSION: 04/09/2016 DATE OF DISCHARGE: 04/12/2016 FINAL DIAGNOSES: 1. Acute alcohol intoxication on presentation. 2. Acute alcohol withdrawal syndrome, slow to respond. 3. Severe hypokalemia from alcoholism. 4. Hypernatremia from free water deficit. 5. Chronic nicotine dependence. HOSPITAL COURSE: This patient with alcohol intoxication went into alcohol withdrawal. Patient is put on Valium and beta blockers, counseled extensively about the same. Doing better at the time of discharge. Up and about, oriented x3. Patient told to seek help. Patient's LDL is 101. DISCHARGE MEDICATIONS: 1. Valium taper. 2. Disulfiram 500 mg a day for 7 days, then 250 mg a day. 3. Lopressor 25 mg p.o. b.i.d. 4. Nicotine patch 21. 5. Thiamine 100 mg b.i.d. Followup with Dr. Crowell in one week. On exam, lungs are clear. CARDIOVASCULAR: First and second sounds normal. Mood alert and oriented x3. Walking unassisted, stable.
== END 2016-04-12 17:30 | disposition home or self-care (01) ==
LOC: EC 22:55 → 3SUR 23:59 → 3OBS 04-11 18:54
PROVIDERS: ADMIT Hospitalist; ATTEND Hospitalist
DX: F10.229 Alcohol dependence with intoxication, unspecified (principal); F10.239 Alcohol dependence with withdrawal, unspecified; Y90.8 Blood alcohol level of 240 mg/100 ml or more; E87.1 Hypo-osmolality and hyponatremia; E87.6 Hypokalemia; F17.200 Nicotine dependence, unspecified, uncomplicated; Z82.49 Family history of ischemic heart disease and other diseases of the circulatory system; R10.816 Epigastric abdominal tenderness; R05 Cough; Z79.899 Other long term (current) drug therapy; F41.9 Anxiety disorder, unspecified; R07.89 Other chest pain; R06.09 Other forms of dyspnea; R00.2 Palpitations; R00.0 Tachycardia, unspecified
CPT/HCPCS: 36415; 93005; 80061; 80053; 80048; 82150; 82550 ×2; 82553 ×2; 83690; 83735; 84132 ×2; 84484 ×2; 85025; 85610; 85730; 80320; 71020; 99285; 96365; 96375; G0378 ×4; S4990 ×3; J2060 ×3; J3411; J2405 ×4; J1650 ×3; 96361; 96366; 96372; 96376

== ENCOUNTER 2016-05-03 13:52 | Inpatient (IN) | payer OTHER ==
[2016-05-03] MEDS ORDERED: ONDANSETRON 4 MG/2 ML VIAL IVP STA (15:32)
[2016-05-03] MEDS ORDERED: SODIUM CHLORIDE 0.9% 1,000 ML IV STA ×2 (15:32)
[2016-05-03] MEDS ORDERED: KETOROLAC 30 MG/ML 1 ML VIAL IVP STA (15:33)
[2016-05-03] MEDS ORDERED: LORazepam 2 MG/ML SYRINGE IV STA ×2 (15:33→17:24)
[2016-05-03 15:56] LABS: Partial Thromboplastin Time 22.3 sec (22.0-30.0); Prothrombin Time 10.5 sec (9.0-12.0)
--- NOTE | 2016-05-03 15:57 | ED ---
General Adult HPI - General Chief complaint: Recheck/Abnormal Lab/Rx Stated complaint: Blood in Urine/Fall Time Seen by Provider: 05/03/16 15:24 Source: patient Mode of arrival: ambulatory Limitations: no limitations - History of Present Illness Initial comments: This 50-year-old white male presents complaining of alcohol detoxification. He states that he has not drank in 3 days. He has felt very shaky, has had nausea as well as vomiting, and has been hallucinating. He states that he has been seeing people in his house which disappear when he comes close to them. He does drink approximately 1/5 of alcohol per day normally. He is gone through alcohol withdrawal the past with previous DVTs. He states that he was trying to take a shower today when he slipped and fell in the tub and hurt his lower back. He relates that he is still able to ambulate but it is quite difficulty and he is very shaky. He denies any other complaints or modifying factors. - Related Data Home Medications Medication Instructions Recorded Confirmed LORazepam [Ativan] 0.5 mg PO Q6H PRN 05/03/16 05/03/16 Allergies Allergy/AdvReac Type Severity Reaction Status Date / Time No Known Allergies Allergy Verified 04/10/16 11:08 Review of Systems ROS Statement: Those systems with pertinent positive or pertinent negative responses have been documented in the HPI. ROS Other: All systems not noted in ROS Statement are negative. Past Medical History Past Medical History: Chest Pain / Angina, GERD/Reflux Additional Past Medical History / Comment(s): SEVERAL ADMISSIONS FOR ETOH INTOXICATION/WITHDRAWL AND C/P. Other HX: alcoholism, withdrawal tremors, withdrawal seizure, gastritis, upper GI bleed thought to be due to gastritis, hypomagnesemia, hypokalemia, tinnitis bilaterally. History of Any Multi-Drug Resistant Organisms: None Reported Past Surgical History: No Surgical Hx Reported, Unable to Obtain Additional Past Surgical History / Comment(s): FATTY TUMOR REMOVED FROM BACK, ORAL SX-WISDOM TEETH REMOVED. Past Anesthesia/Blood Transfusion Reactions: No Reported Reaction Past Psychological History: Anxiety, Depression Additional Psychological History / Comment(s): Pt resides alone. He is independent. Has had suicidal ideations in the past. Smoking Status: Current every day smoker Past Alcohol Use History: Abuse, Heavy Additional Past Alcohol Use History / Comment(s): smoked some marijuana as a teen and none since.pt started smoking in 1978 smokes 1.5 ppd. admits to drinking 1 fifth of vodka per day. Past Drug Use History: None Reported Additional Drug Use History / Comment(s): Smoked marijuana as a teen. - Past Family History Father History Unknown: Yes Family Medical History: Cancer, Hypertension, Myocardial Infarction ([place]) Additional Family Medical History / Comment(s): Father of lung cancer at the age of 57yrs. He had a [place] at the age of 49 yrs. Mother Family Medical History: Dementia Additional Family Medical History / Comment(s): Mother is 74 yrs old. General Exam - General Exam Comments Initial Comments: GENERAL: The patient is well nourished and well hydrated. VITAL SIGNS: Heart rate, blood pressure, respiratory rate reviewed as recorded in nurse's notes. EYES: Pupils are round and reactive. Extraocular movements are intact. No conjunctival / lid redness or swelling. ENT: No external evidence of injury, swelling, or ecchymosis. Airway is patent. Throat is clear. NECK: Nontender. No swelling or evidence of injury. No subcutaneous emphysema. Trachea is midline. No thyroid mass. HEART: Tachycardic rate. Good peripheral pulses. LUNGS/CHEST: Breath sounds clear and equal bilaterally. No rales, rhonchi, or wheezes. No ecchymosis, subcutaneous emphysema, or tenderness. ABDOMEN: Abdomen soft without tenderness. No palpable masses or organomegaly. No peritoneal signs. No abdominal wall swelling or ecchymosis. EXTREMITIES: No extremity tenderness. Normal muscle tone and function. There is some mild tenderness noted diffusely throughout the paralumbar musculature. NEUROLOGIC: Sensation is grossly intact. Cranial nerve exam reveals face is symmetrical, tongue is midline, speech is clear. There is a resting tremor noted. SKIN: No abrasions or ecchymosis is noted. No induration or masses noted. PSYCHIATRIC: Alert and oriented. Appears anxious. Limitations: no limitations Course Vital Signs 05/03/16 05/03/16 05/03/16 14:33 15:47 16:21 Temperature 98.0 F 98.3 F Pulse Rate 122 H 103 H 95 Respiratory 18 20 20 Rate Blood Pressure 143/93 142/97 135/94 O2 Sat by Pulse 97 95 97 Oximetry Medical Decision Making - Medical Decision Making The patient was seen and examined. All diagnostics were reviewed. An EKG was done which shows a normal sinus rhythm at a rate of 83. There is no acute ST-T wave changes noted but there is some degree of artifact due to his shakiness. The [place] interval is 166, QRS duration is 92, and QTC intervals 460. He received 2 mg of Ativan for suspected delirium tremens. He also receives 30 modems of Toradol for his low back pain. He is hydrated. On recheck, he is still fairly shaky and is given another 2 mg of Ativan. His x-ray of the lumbar spine did not show any evidence of fracture. His laboratory showed multiple abnormalities. It is felt as though he would require admission to the hospital for delirium tremens treatment. He is agreeable. Case will be discussed with internal medicine shortly. - Lab Data Result diagrams: 05/03/16 13:25 05/03/16 13:25 Lab Results 05/03/16 05/03/16 05/03/16 Range/Units 13:25 13:25 13:25 WBC 9.7 (3.8-10.6) k/uL RBC 4.20 L (4.30-5.90) m/uL Hgb 14.1 (13.0-17.5) gm/dL Hct 42.6 (39.0-53.0) % MCV 101.5 H D (80.0-100.0) fL MCH 33.7 (25.0-35.0) pg MCHC 33.2 (31.0-37.0) g/dL RDW 14.0 (11.5-15.5) % Plt Count 108 L (150-450) k/uL Neutrophils % 81 % Lymphocytes % 8 % Monocytes % 9 % Eosinophils % 0 % Basophils % 0 % Neutrophils # 7.8 H (1.3-7.7) k/uL Lymphocytes # 0.8 L (1.0-4.8) k/uL Monocytes # 0.9 (0-1.0) k/uL Eosinophils # 0.0 (0-0.7) k/uL Basophils # 0.0 (0-0.2) k/uL Macrocytosis Slight PT 10.5 (9.0-12.0) sec INR 1.0 (<1.1) APTT 22.3 (22.0-30.0) sec Sodium 138 (137-145) mmol/L Potassium 3.1 L (3.5-5.1) mmol/L Chloride 86 L (98-107) mmol/L Carbon Dioxide 21 L (22-30) mmol/L Anion Gap 31 mmol/L BUN 24 H (9-20) mg/dL Creatinine 1.28 H (0.66-1.25) mg/dL Est GFR (MDRD) Af Amer >60 (>60 ml/min/1.73 sqM) Est GFR (MDRD) Non-Af 59 (>60 ml/min/1.73 sqM) Glucose 82 (74-99) mg/dL Calcium 10.6 H (8.4-10.2) mg/dL Phosphorus 5.0 H (2.5-4.5) mg/dL Magnesium 1.7 (1.6-2.3) mg/dL Total Bilirubin 3.4 H (0.2-1.3) mg/dL AST 103 H (17-59) U/L ALT 68 (21-72) U/L Alkaline Phosphatase 77 (38-126) U/L Total Protein 8.7 H (6.3-8.2) g/dL Albumin 5.4 H (3.5-5.0) g/dL Disposition Clinical Impression: Delirium tremens, Hallucination, Alcohol withdrawal, Fall, Lumbar strain, Hematuria, Hypochloremia, Dehydration, Hypercalcemia, Hypertension, Acute kidney injury, Alcohol abuse Disposition: ADMITTED IP TO THIS [facility] Condition: Fair Time of Disposition: 17:28 Decision Date: 05/03/16 Decision Time: 17:28
[2016-05-03 16:00] LABS: ALT 68 U/L (21-72); AST 103 U/L (17-59); Alkaline Phosphatase 77 U/L (38-126); Anion Gap 31 mmol/L; Blood Urea Nitrogen 24 mg/dL (9-20); Calcium 10.6 mg/dL (8.4-10.2); Carbon Dioxide 21 mmol/L (22-30); Chloride 86 mmol/L (98-107); Glucose 82 mg/dL (74-99); Magnesium 1.7 mg/dL (1.6-2.3); Non-African American GFR(MDRD) 59 (>60 ml/min/1.73 sqM); Potassium 3.1 mmol/L (3.5-5.1); Sodium 138 mmol/L (137-145); Total Bilirubin 3.4 mg/dL (0.2-1.3); Total Protein 8.7 g/dL (6.3-8.2)
--- NOTE | 2016-05-03 16:10 | XR ---
EXAM TYPE: LUMBAR SPINE X RAY SERIES COMPARISON: NONE HISTORY: Pain TECHNIQUE: 4 views are submitted. FINDINGS: Alignment is anatomic. The pedicles are intact. The transverse processes are intact. There is no s pondylolysis or spondylolisthesis. Hypertrophic change of the spine noted. Degenerative disc disease L4-5 and L5-S1. IMPRESSION: 1. No acute process.
[2016-05-03 16:39] LABS: Basophils % (A) 0 %; CH 34.4; Eosinophils % (A) 0 %; HCT 42.6 % (39.0-53.0); HDW 2.38; HGB 14.1 gm/dL (13.0-17.5); Luc # (Auto) 0.21; Luc % (Auto) 2; Lymphocytes # (A) 0.8 k/uL (1.0-4.8); Lymphocytes % (A) 8 %; MCH 33.7 pg (25.0-35.0); MCHC 33.2 g/dL (31.0-37.0); Macrocytosis Slight; Mean Platelet Volume 9.7; Monocytes # (A) 0.9 k/uL (0-1.0); Monocytes % (A) 9 %; Neutrophils # (A) 7.8 k/uL (1.3-7.7); Neutrophils % (A) 81 %; WBC 9.7 k/uL (3.8-10.6); WBC (Perox) 9.74
[2016-05-03 16:42] LABS: MCV 101.5 fL (80.0-100.0)
[2016-05-03] MEDS ORDERED: LORazepam 2 MG/ML SYRINGE IV PRN (17:28)
[2016-05-03] MEDS ORDERED: THIAMINE 100 MG/ML 2 ML VIAL IM STA (17:28)
[2016-05-03] MEDS ORDERED: ACETAMINOPHEN TAB 325 MG TAB PO PRN (17:29)
[2016-05-03] MEDS ORDERED: NALOXONE 0.4 MG/ML 1 ML VIAL IV PRN (17:29)
[2016-05-03] MEDS: THIAMINE 100 MG TAB PO SCH (18:19)
[2016-05-03] MEDS ORDERED: Potassium Replacement Protocol 1 EACH MISC MISCELLANE PRN (19:41)
[2016-05-03] MEDS: POTASSIUM CHLORIDE 10 MEQ, LIDOCAINE 2% INJ 10 MG in SODIUM CHLORIDE 0.9% 100 ML IV SCH ×2 (20:28→21:46)
[2016-05-03] MEDS: ONDANSETRON 4 MG/2 ML VIAL IVP PRN (20:28)
[2016-05-03] MEDS: LORazepam 2 MG/ML SYRINGE IV PRN ×2 (20:28→22:26)
[2016-05-03 21:39] LABS: Glucose,Whole Blood 79 mg/dL (75-99)
[2016-05-03] MEDS ORDERED: TEMAZEPAM 15 MG CAP PO PRN (21:53)
[2016-05-03 22:39] LABS: Appearance,Urine Cloudy (Clear); Bacteria,Urine Rare /hpf; Bilirubin,Urine 2+ (Negative); Glucose,Urine (UA) Negative (Negative); Ketones,Urine 4+ (Negative); Leukocyte Esterase,Urine Negative (Negative); Mucus,Urine Moderate /hpf; Nitrite,Urine Negative (Negative); PH, Urine 6.5 (5.0-8.0); Particle Count 12236; Protein,Urine 3+ (Negative); RBC,Urine 1 /hpf (0-5); Specific Gravity,Urine 1.029 (1.001-1.035); UA Billing (MACRO vs. MICRO) MICRO; WBC,Urine 4 /hpf (0-5)
[2016-05-04] MEDS: LORazepam 2 MG/ML SYRINGE IV PRN ×3 (00:04→21:59)
[2016-05-04] MEDS: HYDROmorphone 1 MG/ML 1 ML SYRINGE IVP PRN ×2 (00:30→05:19)
[2016-05-04] MEDS: 0.9% NACL WITH KCL 20 MEQ/L 1,000 ML with MVI, ADULT NO.4 WITH VIT K 10 ML, THIAMINE 10... IV SCH ×8 (00:33→22:32)
[2016-05-04] MEDS: POTASSIUM CHLORIDE 10 MEQ in WATER FOR INJECTION 1 100ML.BAG IVPB SCH ×3 (03:02→05:03)
[2016-05-04 06:59] LABS: Basophils % (A) 0 %; CH 34.3; CHCM 33.6; Eosinophils # (A) 0.1 k/uL (0-0.7); Eosinophils % (A) 1 %; HCT 36.2 % (39.0-53.0); HDW 2.32; Luc # (Auto) 0.19; Luc % (Auto) 4; Lymphocytes # (A) 1.4 k/uL (1.0-4.8); Lymphocytes % (A) 26 %; MCH 33.8 pg (25.0-35.0); MCHC 33.1 g/dL (31.0-37.0); MCV 102.3 fL (80.0-100.0); Macrocytosis Slight; Mean Platelet Volume 9.3; Monocytes # (A) 0.6 k/uL (0-1.0); Monocytes % (A) 11 %; Neutrophils # (A) 3.1 k/uL (1.3-7.7); Neutrophils % (A) 58 %; RBC 3.54 m/uL (4.30-5.90); RDW 13.8 % (11.5-15.5); WBC 5.3 k/uL (3.8-10.6); WBC (Perox) 5.53
[2016-05-04 07:09] LABS: ALT 58 U/L (21-72); AST 73 U/L (17-59); Alkaline Phosphatase 61 U/L (38-126); Amylase 37 U/L (30-110); Anion Gap 14 mmol/L; Blood Urea Nitrogen 21 mg/dL (9-20); Calcium 9.2 mg/dL (8.4-10.2); Carbon Dioxide 30 mmol/L (22-30); Chloride 94 mmol/L (98-107); Glucose 79 mg/dL (74-99); Magnesium 1.9 mg/dL (1.6-2.3); Non-African American GFR(MDRD) >60 (>60 ml/min/1.73 sqM); Phosphorous 4.6 mg/dL (2.5-4.5); Potassium 3.2 mmol/L (3.5-5.1); Sodium 138 mmol/L (137-145); Total Bilirubin 2.2 mg/dL (0.2-1.3); Total Protein 6.9 g/dL (6.3-8.2)
--- NOTE | 2016-05-04 08:43 | XR ---
EXAMINATION TYPE: XR chest 1V portable DATE OF EXAM: 05/04/2016 8:23 AM COMPARISON: Prior chest x-ray 09 April 2016 HISTORY: Pneumonia TECHNIQUE: Single frontal view of the chest is obtained. FINDINGS: There is no pleural effusion, or pneumothorax seen. The cardiac silhouette size is within normal limits. Patchy basilar density is present. There are overlying cardiac leads. The osseous st ructures are intact. IMPRESSION: Correlate for basilar atelectasis or possibly pneumonia. Follow-up PA and lateral chest x-ray is recommended.
[2016-05-04] MEDS ORDERED: PANTOPRAZOLE 40 MG/10 ML VIAL IV SCH (09:00)
[2016-05-04] MEDS: HYDROcodone/APAP 5-325MG 1 EACH TAB PO PRN ×2 (09:51→17:29)
[2016-05-04] MEDS: ENOXAPARIN 40 MG/0.4 ML SYRINGE SQ SCH (09:51)
[2016-05-04] MEDS: POTASSIUM CHLORIDE 10 MEQ, LIDOCAINE 2% INJ 10 MG in SODIUM CHLORIDE 0.9% 100 ML IVPB SCH ×2 (11:08→12:42)
[2016-05-04] MEDS: THIAMINE 100 MG TAB PO SCH ×2 (12:44→17:29)
--- NOTE | 2016-05-04 13:06 | HP ---
DATE OF ADMISSION: 05/03/2016 CHIEF COMPLAINT: Weakness, falls, tremors and delirium tremens. HISTORY OF PRESENT ILLNESS: This 50-year-old gentleman with a past medical history of multiple medical problems, including significant alcohol intake, history of multiple electrolytes imbalances, history of nicotine dependence not being followed by any primary physician in the outpatient setting was apparently drinking heavily up to a fifth of alcohol, last drink was about 3 days ago. The patient became progressively weak and tremulousness and tired and patient also had significant gait dysfunction. The patient had multiple falls. The patient felt very shaky, nausea, vomiting and hallucinations. Because of multiple difficulties, the patient came to [facility] and was admitted to the hospital for further evaluation and treatment for delirium tremens. Patient is able to provide a sketchy history. Otherwise I have also got additional history from the ER physician as well as review of the chart also. There is no history of any fever, rigors or chills. No history of headache, loss of consciousness or seizures. PAST MEDICAL HISTORY: 1. History of significant ETOH. 2. History of withdrawals. 3. History of GERD. 4. History of anxiety, depression. Medications prior to admission include Ativan 0.5 mg q.6 p.r.n. ALLERGIES: None. FAMILY HISTORY: History of cancer, hypertension, myocardial infarction in the family. SOCIAL HISTORY: History of smoking. History of significant alcohol intake as mentioned earlier. REVIEW OF SYSTEMS: ENT: No diminished vision, no diminished hearing. CARDIOVASCULAR SYSTEM: No angina or palpitations. RESPIRATORY: No cough or hemoptysis. GI: No nausea or vomiting. : No dysuria. Nervous system: No numbness or weakness. Allergy/immunology: No asthma or hayfever. MUSCULOSKELETAL: As mentioned earlier. HEMATOLOGY/ONCOLOGY: No history of anemia. ENDOCRINE: No history of diabetes, hypothyroidism. CONSTITUTIONAL: As mentioned earlier. DERMATOLOGY: Negative. RHEUMATOLOGY: Negative. PSYCHIATRY: As mentioned earlier. PHYSICAL EXAMINATION: The patient is alert and oriented times three. Pulse 130, blood pressure 138/99, respirations 20, temperature 98.4, pulse ox 97% on room air. HEENT: Conjunctivae normal. Oral mucosa moist. NECK: No jugular venous distention. No carotid bruit. No lymph node enlargement. CARDIOVASCULAR SYSTEM: S1, S2 muffled. No S3, no S4. RESPIRATORY: Breath sounds diminished at the bases. A few scattered rhonchi and crackles. ABDOMEN: Soft, nontender. No mass palpable. LEGS: No edema. No swelling. CENTRAL NERVOUS SYSTEM: Higher functions as mentioned earlier. Moves all 4 limbs. Diffuse coarse tremors present. The patient is significantly anxious. Mild diffuse weakness. No focal weakness. No focal sensory abnormalities also noted. SKIN: No ulcer, rash or bleeding. LYMPHATICS: No lymph nodes palpable in the neck, axillae or groin. Joints: No active deforming arthropathy. LABS: MCV 101.5. Potassium 3.1 and creatinine is 1.38, calcium is 10.6 and total bilirubin is 3.4, AST 103. ASSESSMENT: 1. Change in mental status, acute metabolic toxic encephalopathy secondary to acute delirium tremens. 2. Alcoholic intoxication withdrawal. 3. Increased creatinine with mild acute renal failure, possible prerenal secondary to dehydration. 4. Hyperkalemia. 5. Hypercalcemia. 6. Hyperbilirubinemia. 7. Increased AST, possible alcoholic hepatitis. 8. Increased MCV. 9. Thrombocytopenia, possibly secondary to alcoholic liver disease. 10. Gastroesophageal reflux disease. 11. Possible chronic alcoholic liver disease. 12. History of multiple withdrawal seizures and tremors. 13. History of gastritis. 14. Multiple electrolytes imbalance previously. 15. Anxiety, depression, not otherwise specified. 16. History nicotine dependence. 17. FULL CODE. RECOMMENDATIONS AND DISCUSSION: In this is a 50-year-old gentleman who presented with multiple complex medical issues. We will monitor the patient closely. Continue the current CIWA protocol. Otherwise, I would also recommend continue with hydration. Monitor supplementation. Guarded prognosis because of multiple complex medical issues. Otherwise, I would also recommend Protonix and as well as DVT prophylaxis. Will follow the patient closely. Guarded prognosis. 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 Otherwise prognosis is guarded. Repeat labs will be ordered. Prognosis guarded because of multiple complex medical issues. Further recommendations to follow. Discussed with the patient who understands and agrees. Please note the patient did not have a primary physician at this time for which I have recommend continued follow-up also. Further recommendations to follow. MTDD
[2016-05-04 14:52] VITALS: BMI 24.0
[2016-05-04 15:23] LABS: Potassium 3.1 mmol/L (3.5-5.1)
[2016-05-04] MEDS: POTASSIUM CHLORIDE ER 20 MEQ TAB.ER PO SCH ×3 (17:25→23:12)
[2016-05-04] MEDS: D5-0.45% NACL WITH KCL 20MEQ/L 1,000 ML IV SCH (17:26)
--- NOTE | 2016-05-04 17:27 | PN ---
DATE OF SERVICE: 05/04/2016 This 50 -year-old gentleman admitted to the hospital with weakness acute delirium tremens is being closely monitored. The patient still has significant tremors. The patient unable to move without significant tremors which is fairly debilitating. The patient also had active hallucinations and delusions also. The patient is being closely monitored. The patient is also going through withdrawals. The patient is on CIWA protocol and it seems like the patient will need more days of hospitalization for stability. PAST MEDICAL HISTORY: Reviewed. Review of systems could not be taken, the patient is confused. Current medications include: 1. CIWA protocol. 2. Tylenol p.r.n. 3. [place] p.r.n. 4. Lovenox 40 mg subcu daily. 5. Protonix. 6. K-Dur 40 meq b.i.d. 7. Multivitamin Supplements . 8. Vitamin B1. 9. Thiamine 100 mg p.o. daily. PHYSICAL EXAMINATION: Patient is conscious but confused. Pulse 75, blood pressure 112/67, respiratory rate 16, temperature 98.4. pulse ox 93% on room air. Patient is extremely tremulous. NECK: No jugular venous distention. No carotid bruit. No lymph node enlargement. CARDIOVASCULAR: S1, S2 muffled. No S3, no S4. RESPIRATORY: Breath sounds diminished at the bases. A few scattered rhonchi and crackles. ABDOMEN: Soft, nontender. No mass palpable. No hepatosplenomegaly. Legs: No edema. No swelling. Nervous system: Higher functions as mentioned above. Moves all four limbs. No focal deficits. LYMPHATICS: No lymph nodes palpable in the neck, axillae or groin. SKIN: No ulcer, rash or bleeding. LABS: WBC 5.3, hemoglobin and platelets 85. Sodium 130, potassium 3.2 and 3.1, total bilirubin is 2.2. ASSESSMENT: 1. Change in mental status, acute metabolic toxic encephalopathy secondary to acute delirium tremens and alcohol intoxication withdrawal. 2. Active delusions and hallucinations. 3. Gait dysfunction. 4. Increased creatinine with acute renal failure, possibly prerenal, secondary to dehydration. 5. Hyperkalemia and hypercalcemia present on admission. 6. Hyperbilirubinemia, possibly secondary to alcoholic hepatitis. 7. Increased AST secondary to alcoholic hepatitis. 8. Increased MCV. 9. Thrombocytopenia secondary to alcoholic liver disease. 10. Gastroesophageal reflux disease. 11. Possible chronic liver disease. 12. History of multiple withdrawals, seizures and tremors. 13. History of gastritis. 14. Multiple electrolyte imbalance. 16. Anxiety/depression, not otherwise specified. 17. History of nicotine dependence. 18. FULL CODE. RECOMMENDATIONS AND DISCUSSION: In this 50-year-old gentleman who presented with multiple complex medical issues. We will monitor the patient closely. Continue the current medications. Continue symptomatic treatment. Continue with Vitamins. Continue to monitor fluid and electrolytes balance closely. There is no evidence of infection anywhere but however, I will continue to monitor. Other than that, the patient had possible tricyclic antidepressant benzodiazepine as well as THC. The prognosis guarded. Further recommendations to follow. I would recommend continue monitoring as an inpatient to attain instability. Once again, the prognosis is guarded. See orders for further details. The patient had acute delirium tremens with multiple complications. Further recommendations to follow. MTDD
[2016-05-05] MEDS: LORazepam 2 MG/ML SYRINGE IV PRN ×4 (01:20→21:51)
[2016-05-05] MEDS: 0.9% NACL WITH KCL 20 MEQ/L 1,000 ML with MVI, ADULT NO.4 WITH VIT K 10 ML, THIAMINE 10... IV SCH ×4 (01:20)
[2016-05-05 06:42] LABS: Aty Lym Flag Slight; CH 34.4; CHCM 33.6; HCT 34.4 % (39.0-53.0); HDW 2.39; HGB 11.3 gm/dL (13.0-17.5); MCH 33.8 pg (25.0-35.0); MCHC 32.9 g/dL (31.0-37.0); MCV 102.8 fL (80.0-100.0); Macrocytosis Slight; Mean Platelet Volume 9.1; RBC 3.34 m/uL (4.30-5.90); RDW 13.5 % (11.5-15.5); WBC 4.3 k/uL (3.8-10.6); WBC (Perox) 4.71
[2016-05-05 06:47] LABS: ALT 52 U/L (21-72); AST 71 U/L (17-59); Alkaline Phosphatase 61 U/L (38-126); Anion Gap 9 mmol/L; Blood Urea Nitrogen 10 mg/dL (9-20); Calcium 9.1 mg/dL (8.4-10.2); Carbon Dioxide 27 mmol/L (22-30); Chloride 100 mmol/L (98-107); Glucose 89 mg/dL (74-99); Non-African American GFR(MDRD) >60 (>60 ml/min/1.73 sqM); Potassium 3.8 mmol/L (3.5-5.1); Sodium 136 mmol/L (137-145); Total Bilirubin 1.6 mg/dL (0.2-1.3); Total Protein 6.4 g/dL (6.3-8.2)
[2016-05-05] MEDS: PANTOPRAZOLE 40 MG TABLET PO SCH (08:56)
[2016-05-05] MEDS: ENOXAPARIN 40 MG/0.4 ML SYRINGE SQ SCH (08:57)
[2016-05-05 09:25] LABS: Add Differential Manual Differential
[2016-05-05 09:28] LABS: Manual Review Performed; Nucleated Red Blood Cells 0 /100 WBC (0-0); Total Cells Counted 100
[2016-05-05] MEDS: THIAMINE 100 MG TAB PO SCH ×2 (11:23→16:54)
[2016-05-05] MEDS: D5-0.45% NACL WITH KCL 20MEQ/L 1,000 ML IV SCH ×3 (11:23→21:55)
[2016-05-05] MEDS: HYDROcodone/APAP 5-325MG 1 EACH TAB PO PRN (11:23)
--- NOTE | 2016-05-05 20:57 | PN ---
DATE OF SERVICE: 05/05/2016 This 50-year-old gentleman who was admitted with change in mental status and acute delirium tremens and alcohol withdrawal is being closely monitored. Patient is significantly tremulous and weak. He is being closely monitored. No chest pain. No palpitation. No fever. On exam, alert and oriented x3. Pulse 78, blood pressure 168/89, respiration 18, temperature 99 degrees, pulse ox 97% on room air. HEENT: Conjunctivae normal. NECK: No jugular venous distention. CARDIOVASCULAR SYSTEM: S1, S2 muffled. RESPIRATORY SYSTEM: Breath sounds diminished at the bases. No rhonchi. No crackles. ABDOMEN: Soft, non-tender. LEGS: No edema. No swelling. NERVOUS SYSTEM: Diffusely weak and diffuse tremors also present. SKIN: No ulcer, rash, bleeding. LABS: WBC 4.6, hemoglobin 11.3, platelets 91. Sodium 136. Bilirubin is 1.6. ASSESSMENT: 1. Change in mental status with acute toxic metabolic encephalopathy secondary to acute delirium tremens and alcohol intoxication and withdrawal. 2. Active delusions and hallucinations. 3. Gait dysfunction. 4. Increased creatinine with mild acute renal failure, possible prerenal secondary to dehydration. 5. Hyperkalemia and hypercalcemia, present on admission. 6. Hyperbilirubinemia, possibly secondary to alcoholic hepatitis. 7. Increased AST secondary to alcohol hepatitis. 8. Increased mean corpuscular volume. 9. Thrombocytopenia possibly secondary to alcoholic liver disease. 10. Gastroesophageal reflux disease. 11. Possible chronic liver disease. 12. History of multiple withdrawal seizures and tremors, history. 13. History of gastritis. 14. Multiple electrolyte imbalances, history. 15. Anxiety, depression not otherwise specified. 16. History of nicotine dependence. 17. FULL CODE. RECOMMENDATIONS AND DISCUSSION: I recommend to continue with the current medications, continue with the monitoring, symptomatic treatment. CIWA protocol. Prognosis guarded. Further recommendations to follow.
[2016-05-05] MEDS: HYDROmorphone 1 MG/ML 1 ML SYRINGE IVP PRN (21:51)
[2016-05-06] MEDS: LORazepam 2 MG/ML SYRINGE IV PRN ×5 (01:27→15:01)
[2016-05-06] MEDS: 0.9% NACL WITH KCL 20 MEQ/L 1,000 ML with MVI, ADULT NO.4 WITH VIT K 10 ML, THIAMINE 10... IV SCH ×12 (01:29→12:03)
[2016-05-06] MEDS: ONDANSETRON 4 MG/2 ML VIAL IVP PRN ×2 (04:45→12:03)
[2016-05-06] MEDS: ENOXAPARIN 40 MG/0.4 ML SYRINGE SQ SCH (07:18)
[2016-05-06] MEDS: PANTOPRAZOLE 40 MG TABLET PO SCH (07:18)
[2016-05-06] MEDS: HYDROcodone/APAP 5-325MG 1 EACH TAB PO PRN ×2 (07:26→17:58)
[2016-05-06 08:17] LABS: Basophils % (A) 1 %; CH 34.8; CHCM 34.2; Eosinophils # (A) 0.1 k/uL (0-0.7); Eosinophils % (A) 1 %; HCT 37.2 % (39.0-53.0); HDW 2.45; HGB 12.3 gm/dL (13.0-17.5); Luc # (Auto) 0.19; Luc % (Auto) 5; Lymphocytes # (A) 0.9 k/uL (1.0-4.8); Lymphocytes % (A) 20 %; MCH 33.5 pg (25.0-35.0); MCHC 32.9 g/dL (31.0-37.0); Macrocytosis Slight; Mean Platelet Volume 8.5; Monocytes # (A) 0.6 k/uL (0-1.0); Monocytes % (A) 14 %; Neutrophils # (A) 2.6 k/uL (1.3-7.7); Neutrophils % (A) 60 %; RBC 3.65 m/uL (4.30-5.90); RDW 13.5 % (11.5-15.5); WBC 4.3 k/uL (3.8-10.6); WBC (Perox) 4.69
[2016-05-06 08:36] LABS: ALT 73 U/L (21-72); AST 106 U/L (17-59); Alkaline Phosphatase 67 U/L (38-126); Anion Gap 14 mmol/L; Blood Urea Nitrogen 4 mg/dL (9-20); Calcium 9.4 mg/dL (8.4-10.2); Carbon Dioxide 25 mmol/L (22-30); Chloride 97 mmol/L (98-107); Glucose 91 mg/dL (74-99); Non-African American GFR(MDRD) >60 (>60 ml/min/1.73 sqM); Potassium 3.4 mmol/L (3.5-5.1); Sodium 136 mmol/L (137-145); Total Bilirubin 1.6 mg/dL (0.2-1.3)
[2016-05-06] MEDS: D5-0.45% NACL WITH KCL 20MEQ/L 1,000 ML IV SCH ×2 (10:03→19:38)
[2016-05-06] MEDS ORDERED: POTASSIUM CHLORIDE ER 20 MEQ TAB.ER PO STA (10:48)
[2016-05-06] MEDS: THIAMINE 100 MG TAB PO SCH ×2 (12:04→17:56)
--- NOTE | 2016-05-06 21:22 | PN ---
DATE OF SERVICE: 05/05/2016 This 50-year-old gentleman who was admitted with change in mental status as well as metabolic encephalopathy secondary to acute delirium tremens is complaining of generalized weakness and tiredness. No chest pain or palpitations. On exam, alert and oriented x3. Pulse 70, blood pressure 120/81, respirations 16, temperature 97.2, pulse ox 100% on room air. HEENT: Conjunctivae normal. NECK: No jugular venous distension. CARDIOVASCULAR: S1 and S2 muffled. RESPIRATORY: Breath sounds diminished in the bases. No rhonchi, no crackles. ABDOMEN: Soft, nontender. LEGS: No edema. No swelling. NERVOUS SYSTEM: Diffusely weak and tremors. LABS: WBC 4.7, hemoglobin is 12.2. Sodium 136, potassium 3.4. ASSESSMENT: 1. Change in mental status secondary to toxic metabolic encephalopathy secondary to acute delirium tremens and alcohol intake intoxication withdrawal. 2. Acute delusions and hallucinations. 3. Gait dysfunction. 4. Increased creatinine with mild acute renal failure. 5. Possible prerenal secondary to dehydration. 6. Hyperkalemia and hypercalcemia, present on admission. 7. Hyperbilirubinemia, possibly secondary to alcoholic hepatitis. 8. Increased AST secondary to alcoholic hepatitis. 9. Increased MCV. 10. Thrombocytopenia possibly secondary to alcoholic liver disease. 11. Gastroesophageal reflux disease. 12. Possible chronic liver disease. 13. History of multiple withdrawal seizures and tremors. 14. History of gastritis. 15. Multiple electrolyte abnormalities history. 16. Anxiety and depression, not otherwise specified. 17. History of nicotine dependence. 18. FULL CODE. RECOMMENDATIONS AND DISCUSSION: Recommend to continue the current medications. Continue with symptomatic treatment. Continue with CIWA protocol. Continue with to monitor lytes closely, potassium supplementation. Otherwise, guarded prognosis. Closely follow. Further recommendations to follow.
[2016-05-07] MEDS: LORazepam 2 MG/ML SYRINGE IV PRN ×3 (00:02→07:06)
[2016-05-07] MEDS: ONDANSETRON 4 MG/2 ML VIAL IVP PRN (00:03)
[2016-05-07] MEDS: D5-0.45% NACL WITH KCL 20MEQ/L 1,000 ML IV SCH (06:03)
[2016-05-07] MEDS: 0.9% NACL WITH KCL 20 MEQ/L 1,000 ML with MVI, ADULT NO.4 WITH VIT K 10 ML, THIAMINE 10... IV SCH ×4 (06:10)
[2016-05-07 07:39] LABS: Aty Lym Flag Slight; CH 34.9; CHCM 34.6; HCT 37.8 % (39.0-53.0); HDW 2.45; HGB 12.6 gm/dL (13.0-17.5); MCH 33.8 pg (25.0-35.0); MCHC 33.4 g/dL (31.0-37.0); Mean Platelet Volume 8.3; RBC 3.74 m/uL (4.30-5.90); RDW 13.4 % (11.5-15.5); WBC (Perox) 4.29
[2016-05-07 07:59] LABS: ALT 99 U/L (21-72); AST 119 U/L (17-59); Alkaline Phosphatase 65 U/L (38-126); Anion Gap 12 mmol/L; Blood Urea Nitrogen 6 mg/dL (9-20); Calcium 9.4 mg/dL (8.4-10.2); Carbon Dioxide 24 mmol/L (22-30); Chloride 101 mmol/L (98-107); Glucose 94 mg/dL (74-99); Non-African American GFR(MDRD) >60 (>60 ml/min/1.73 sqM); Potassium 3.8 mmol/L (3.5-5.1); Sodium 137 mmol/L (137-145); Total Bilirubin 1.5 mg/dL (0.2-1.3); Total Protein 6.7 g/dL (6.3-8.2)
[2016-05-07 08:08] VITALS: BP 157/83; PULSE 77; RESP 16; TEMP 98.3
[2016-05-07] MEDS: PANTOPRAZOLE 40 MG TABLET PO SCH (08:17)
[2016-05-07] MEDS: ENOXAPARIN 40 MG/0.4 ML SYRINGE SQ SCH (08:17)
[2016-05-07] MEDS: THIAMINE 100 MG TAB PO SCH (08:17)
[2016-05-07 09:19] LABS: Add Differential Manual Differential
[2016-05-07 09:24] LABS: Nucleated Red Blood Cells 0 /100 WBC (0-0); Total Cells Counted 100
--- NOTE | 2016-05-08 13:56 | DS ---
DATE OF ADMISSION: 05/04/2016 DATE OF DISCHARGE: 05/07/2016 FINAL DIAGNOSES: 1. Change in mental status secondary to toxic metabolic encephalopathy secondary to acute delirium tremens and alcohol intoxication and withdrawal. 2. Acute delusions and hallucinations. 3. Gait dysfunction. 4. Increased creatinine with mild acute renal failure possibly prerenal secondary to dehydration. 5. Hyperkalemia and hypercalcemia present on admission. 6. Hyperbilirubinemia, possibly secondary to alcoholic hepatitis. 7. Increased AST secondary to alcoholic hepatitis. 8. Increased MCV. 9. Thrombocytopenia possibly secondary to alcoholic liver disease. 10. Gastroesophageal reflux disease. 11. Possible chronic liver disease. 12. History of multiple withdrawal seizures and tremors. 13. History of gastritis. 14. Multiple acute abnormalities previously. 15. Anxiety, depression, not otherwise specified. 16. History of nicotine dependence. 17. FULL CODE. DISCHARGE DISPOSITION: Patient will be discharged in stable condition with guarded prognosis. HISTORY OF PRESENT ILLNESS: This 50-year-old gentleman was admitted with multiple medical problems as mentioned, possibly secondary to alcohol, DTs and other multiple medical problems. Treated symptomatically. Improved significantly. On exam, vitals are stable. CARDIOVASCULAR: S1, S2. ABDOMEN: Soft. NERVOUS SYSTEM: No focal deficits. DISCHARGE ADVICE: 1. Diet is cardiac. 2. Activity limited until follow up. 3. Follow up with [facility] as recommended. 4. Follow with Dr. Encinas in 2 to 3 days. MEDICATIONS: 1. Thiamine 100 mg p.o. daily. 2. Protonix 40 mg daily. 3. Multivitamins 1 p.o. daily. 4. Ativan 0.5 mg q.8 p.r.n. 5. Folic acid 1 mg p.o. daily. Once again, the patient will be discharged in stable condition with guarded prognosis.
== END 2016-05-07 10:27 | disposition home or self-care (01) | DRG 896 ==
LOC: EC 13:52 → 3OBS 17:29 → OBSVTOIN 05-04 14:47 → 3SUR 05-05 21:01
PROVIDERS: ADMIT Hospitalist; ATTEND Hospitalist
DX: F10.231 Alcohol dependence with withdrawal delirium (principal); G92 Toxic encephalopathy; N17.9 Acute kidney failure, unspecified; E87.8 Other disorders of electrolyte and fluid balance, not elsewhere classified; D69.59 Other secondary thrombocytopenia; E83.52 Hypercalcemia; E87.5 Hyperkalemia; E86.0 Dehydration; F17.200 Nicotine dependence, unspecified, uncomplicated; F32.9 Major depressive disorder, single episode, unspecified; F41.9 Anxiety disorder, unspecified; I10 Essential (primary) hypertension; K21.9 Gastro-esophageal reflux disease without esophagitis; K70.10 Alcoholic hepatitis without ascites; S39.012A Strain of muscle, fascia and tendon of lower back, initial encounter; W18.2XXA Fall in (into) shower or empty bathtub, initial encounter; Y93.E1 Activity, personal bathing and showering; Z82.49 Family history of ischemic heart disease and other diseases of the circulatory system
CPT/HCPCS: 36415; 71010; 72100; 80051; 80053; 80306; 81001; 82150; 83690; 83735; 84100; 84132; 85025; 85610; 85730; 93005; 96361; 96365; 96366; 96367; 96368; 96374; 96375; 96376; 99285

== ENCOUNTER 2016-05-08 05:45 | Emergency (ER) | payer OTHER ==
[2016-05-08] MEDS ORDERED: LORazepam 2 MG/ML SYRINGE IV STA (06:10)
[2016-05-08] MEDS ORDERED: SODIUM CHLORIDE 0.9% 1,000 ML IV ONE (06:10)
[2016-05-08] MEDS ORDERED: IBUPROFEN 800 MG TAB PO STA (06:28)
--- NOTE | 2016-05-08 06:53 | ED ---
Alcohol HPI - General Chief Complaint: Alcohol Stated Complaint: Headache/Balance issue Time Seen by Provider: 05/08/16 06:10 Source: patient Mode of arrival: wheelchair Limitations: no limitations - History of Present Illness Initial Comments: This patient is 50-year-old man who presents with complaint that he believes he is having alcohol withdrawal. The patient states that up until a couple of days ago he was drinking about a fifth of liquor per day. Yesterday he states that he had "just a few shots." The patient states that he feels very shaky, feels as if he is having some hallucinations, and is having a bit of headache. The patient states that he had been given a prescription for Ativan but it did not seem to be helping today. MD Complaint: alcohol withdrawal -: hour(s) Previous Visits for Alcohol Intoxication?: Yes Recent Trauma: No Associated Symptoms: nausea, tremors Chronic Alcohol Use: Yes - Related Data Previous Rx's Medication Instructions Recorded Folic Acid 1 mg PO DAILY #30 tablet 05/06/16 Multivitamins, Thera [Multivitamin 1 tab PO DAILY #30 tablet 05/06/16 (formulary)] Pantoprazole [Protonix] 40 mg PO AC-BRKFST #30 tablet. 05/06/16 Thiamine [Vitamin B-1] 100 mg PO DAILY #30 tab 05/06/16 LORazepam [Ativan] 0.5 mg PO Q8H PRN #20 tablet 05/07/16 LORazepam [Ativan] 1 mg PO TID #15 tab 05/08/16 chlordiazePOXIDE HCl [Librium] 25 mg PO QID #16 capsule 05/08/16 Allergies Allergy/AdvReac Type Severity Reaction Status Date / Time No Known Allergies Allergy Verified 05/08/16 05:57 Review of Systems ROS Statement: Those systems with pertinent positive or pertinent negative responses have been documented in the HPI. ROS Other: All systems not noted in ROS Statement are negative. Constitutional: Denies: fever, chills, weakness Eyes: Denies: vision change Respiratory: Denies: cough, dyspnea Cardiovascular: Reports: palpitations. Denies: chest pain, syncope Gastrointestinal: Reports: nausea. Denies: abdominal pain, vomiting, diarrhea Genitourinary: Denies: dysuria, hematuria Skin: Denies: rash Neurological: Denies: headache, weakness, numbness Psychiatric: Reports: anxiety, visual hallucinations. Denies: homicidal thoughts, suicidal thoughts Past Medical History Past Medical History: Chest Pain / Angina, GERD/Reflux Additional Past Medical History / Comment(s): SEVERAL ADMISSIONS FOR ETOH INTOXICATION/WITHDRAWL AND C/P. Other HX: alcoholism, withdrawal tremors, withdrawal seizure, gastritis, upper GI bleed thought to be due to gastritis, hypomagnesemia, hypokalemia, tinnitis bilaterally. "upper bridge" History of Any Multi-Drug Resistant Organisms: None Reported Past Surgical History: No Surgical Hx Reported Additional Past Surgical History / Comment(s): FATTY TUMOR REMOVED FROM BACK, ORAL SX-WISDOM TEETH REMOVED. Past Anesthesia/Blood Transfusion Reactions: No Reported Reaction Past Psychological History: Anxiety, Depression Additional Psychological History / Comment(s): Pt resides w/girfreind He is independent. Has had suicidal ideations in the past. Smoking Status: Current every day smoker Past Alcohol Use History: Abuse, Daily, Heavy Additional Past Alcohol Use History / Comment(s): smoked marijuana as a teen - and rare use since. started smoking in 1978 smokes 1 ppd. admits to drinking 1 fifth of vodka per day. Past Drug Use History: Marijuana Additional Drug Use History / Comment(s): Smoked marijuana as a teen and now rare use - Past Family History Father History Unknown: Yes Family Medical History: Cancer, Hypertension, Myocardial Infarction ([place]) Additional Family Medical History / Comment(s): Father of lung cancer at the age of 57yrs. He had a [place] at the age of 49 yrs. Mother Family Medical History: Dementia Additional Family Medical History / Comment(s): Mother is 74 yrs old. General Exam Limitations: no limitations General appearance: alert, anxious Head exam: Present: atraumatic, normocephalic, normal inspection Eye exam: Present: normal appearance, nystagmus. Absent: scleral icterus, conjunctival injection ENT exam: Present: mucous membranes dry Neck exam: Present: normal inspection Respiratory exam: Present: normal lung sounds bilaterally. Absent: respiratory distress, wheezes, rales, rhonchi, stridor Cardiovascular Exam: Present: normal rhythm, tachycardia, normal heart sounds. Absent: systolic murmur, diastolic murmur, rubs, gallop GI/Abdominal exam: Present: soft. Absent: distended, tenderness, guarding, rebound Extremities exam: Present: normal inspection, normal capillary refill. Absent: pedal edema, calf tenderness Back exam: Present: normal inspection. Absent: CVA tenderness (R), CVA tenderness (L) Neurological exam: Present: alert, oriented X3, CN II-XII intact, other ( Patient has tremor.) Skin exam: Present: warm, dry, intact, normal color. Absent: rash Course Vital Signs 05/08/16 05/08/16 05:49 07:09 Temperature 99.0 F Pulse Rate 135 H 90 Respiratory 20 14 Rate Blood Pressure 131/94 124/91 O2 Sat by Pulse 99 100 Oximetry Medical Decision Making - Lab Data Result diagrams: 05/08/16 06:58 Lab Results 05/08/16 Range/Units 06:58 WBC 4.5 (3.8-10.6) k/uL RBC 3.70 L (4.30-5.90) m/uL Hgb 12.8 L (13.0-17.5) gm/dL Hct 36.6 L (39.0-53.0) % MCV 99.0 (80.0-100.0) fL MCH 34.7 (25.0-35.0) pg MCHC 35.0 (31.0-37.0) g/dL RDW 13.6 (11.5-15.5) % Plt Count 212 (150-450) k/uL Neutrophils % 57 % Lymphocytes % 16 % Monocytes % 21 % Eosinophils % 2 % Basophils % 0 % Neutrophils # 2.6 (1.3-7.7) k/uL Lymphocytes # 0.7 L (1.0-4.8) k/uL Monocytes # 0.9 (0-1.0) k/uL Eosinophils # 0.1 (0-0.7) k/uL Basophils # 0.0 (0-0.2) k/uL Disposition Clinical Impression: Alcohol withdrawal Disposition: HOME SELF-CARE Condition: Fair Instructions: Alcohol Withdrawal (ED) Prescriptions: LORazepam [Ativan] 1 mg PO TID #15 tab chlordiazePOXIDE HCl [Librium] 25 mg PO QID #16 capsule
[2016-05-08 07:06] LABS: Basophils % (A) 0 %; CH 34.8; CHCM 35.3; Eosinophils # (A) 0.1 k/uL (0-0.7); Eosinophils % (A) 2 %; HCT 36.6 % (39.0-53.0); HDW 2.51; HGB 12.8 gm/dL (13.0-17.5); Luc # (Auto) 0.19; Luc % (Auto) 4; Lymphocytes # (A) 0.7 k/uL (1.0-4.8); Lymphocytes % (A) 16 %; MCH 34.7 pg (25.0-35.0); Mean Platelet Volume 8.7; Monocytes # (A) 0.9 k/uL (0-1.0); Monocytes % (A) 21 %; Neutrophils # (A) 2.6 k/uL (1.3-7.7); Neutrophils % (A) 57 %; RDW 13.6 % (11.5-15.5); WBC 4.5 k/uL (3.8-10.6); WBC (Perox) 4.93
[2016-05-08 07:20] LABS: Alcohol <10 mg/dL; Anion Gap 14 mmol/L; Blood Urea Nitrogen 9 mg/dL (9-20); Calcium 9.3 mg/dL (8.4-10.2); Carbon Dioxide 22 mmol/L (22-30); Chloride 104 mmol/L (98-107); Glucose 94 mg/dL (74-99); Non-African American GFR(MDRD) >60 (>60 ml/min/1.73 sqM); Potassium 3.2 mmol/L (3.5-5.1); Sodium 140 mmol/L (137-145)
[2016-05-08 08:57] VITALS: BP 126/83; PULSE 95; RESP 15; TEMP 98
[2016-05-08] MEDS ORDERED: THIAMINE 100 MG/ML 2 ML VIAL IVP SCH (09:00)
== END 2016-05-08 09:01 | disposition home or self-care (01) ==
LOC: EC 05:45
DX: F10.239 Alcohol dependence with withdrawal, unspecified (principal); R51 Headache; F17.200 Nicotine dependence, unspecified, uncomplicated
CPT/HCPCS: 36415; 80048; 85025; 80320; 99284; 96374; 96375; 96361 ×3; J2060; J3411

== ENCOUNTER 2016-05-23 14:57 | Emergency (ER) | payer OTHER ==
[2016-05-23] MEDS ORDERED: SODIUM CHLORIDE 0.9% 1,000 ML IV STA (15:59)
--- NOTE | 2016-05-23 16:01 | ED ---
Psych HPI - General Source: patient, RN notes reviewed Mode of arrival: ambulatory <Ynes Borges - Last Filed: 05/23/16 19:18> <Shane Vasquez - Last Filed: 05/24/16 06:28> - General Chief Complaint: Psychiatric Symptoms Stated Complaint: Mental Health Time Seen by Provider: 05/23/16 15:50 - History of Present Illness Initial Comments: 50-year-old male presents to the emergency department with a chief complaint of feeling depressed. Patient states that he is an alcoholic. Patient states that he's been feeling very depressed lately and has started to have suicidal thoughts about a plan. Patient states he was concerned that he may hurt himself so he thought that he should come to the emergency department. At this time he denies any other concerns. Patient is tearful on exam.Patient denies any recent fever, chills, shortness of breath, chest pain, back pain, abdominal pain, nausea vomiting, numbness or tingling, dysuria or hematuria, constipation or diarrhea, headaches or visual changes, or any other current symptoms. (Ynes Borges) - Related Data Previous Rx's Medication Instructions Recorded Folic Acid 1 mg PO DAILY #30 tablet 05/06/16 Multivitamins, Thera [Multivitamin 1 tab PO DAILY #30 tablet 05/06/16 (formulary)] Pantoprazole [Protonix] 40 mg PO AC-BRKFST #30 tablet. 05/06/16 Thiamine [Vitamin B-1] 100 mg PO DAILY #30 tab 05/06/16 LORazepam [Ativan] 0.5 mg PO Q8H PRN #20 tablet 05/07/16 LORazepam [Ativan] 1 mg PO TID #15 tab 05/08/16 chlordiazePOXIDE HCl [Librium] 25 mg PO QID #16 capsule 05/08/16 Allergies Allergy/AdvReac Type Severity Reaction Status Date / Time No Known Allergies Allergy Verified 05/23/16 16:27 Review of Systems ROS Other: All systems not noted in ROS Statement are negative. <Ynes Borges - Last Filed: 05/23/16 19:18> ROS Other: All systems not noted in ROS Statement are negative. <Shane Vasquez - Last Filed: 05/24/16 06:28> ROS Statement: Those systems with pertinent positive or pertinent negative responses have been documented in the HPI. Past Medical History Past Medical History: Chest Pain / Angina, GERD/Reflux Additional Past Medical History / Comment(s): SEVERAL ADMISSIONS FOR ETOH INTOXICATION/WITHDRAWL AND C/P. Other HX: alcoholism, withdrawal tremors, withdrawal seizure, gastritis, upper GI bleed thought to be due to gastritis, hypomagnesemia, hypokalemia, tinnitis bilaterally. "upper bridge" History of Any Multi-Drug Resistant Organisms: None Reported Past Surgical History: No Surgical Hx Reported Additional Past Surgical History / Comment(s): FATTY TUMOR REMOVED FROM BACK, ORAL SX-WISDOM TEETH REMOVED. Past Anesthesia/Blood Transfusion Reactions: No Reported Reaction Past Psychological History: Anxiety, Depression Additional Psychological History / Comment(s): Pt resides w/girfreind He is independent. Has had suicidal ideations in the past. Smoking Status: Current every day smoker Past Alcohol Use History: Abuse, Daily, Heavy Additional Past Alcohol Use History / Comment(s): smoked marijuana as a teen - and rare use since. started smoking in 1978 smokes 1 ppd. admits to drinking 1 fifth of vodka per day. Past Drug Use History: Marijuana Additional Drug Use History / Comment(s): Smoked marijuana as a teen and now rare use - Past Family History Father History Unknown: Yes Family Medical History: Cancer, Hypertension, Myocardial Infarction (NH) Additional Family Medical History / Comment(s): Father of lung cancer at the age of 57yrs. He had a NH at the age of 49 yrs. Mother Family Medical History: Dementia Additional Family Medical History / Comment(s): Mother is 74 yrs old. <Ynes Borges - Last Filed: 05/23/16 19:18> General Exam Limitations: no limitations General appearance: alert, appears intoxicated Head exam: Present: atraumatic, normocephalic, normal inspection Eye exam: Present: normal appearance ENT exam: Present: normal exam, mucous membranes moist Neck exam: Present: normal inspection. Absent: tenderness, meningismus, lymphadenopathy Respiratory exam: Present: normal lung sounds bilaterally. Absent: respiratory distress, wheezes, rales, rhonchi, stridor Cardiovascular Exam: Present: regular rate, normal rhythm, normal heart sounds. Absent: systolic murmur, diastolic murmur, rubs, gallop, clicks Neurological exam: Present: alert, oriented X3 Psychiatric exam: Present: depressed, suicidal ideation. Absent: homicidal ideation Skin exam: Present: warm, dry, intact <Ynes Borges - Last Filed: 05/23/16 19:18> Course <Ynes Borges - Last Filed: 05/23/16 19:18> <Shane Vasquez - Last Filed: 05/24/16 06:28> Vital Signs 05/23/16 05/23/16 05/24/16 15:01 18:59 02:00 Temperature 98.2 F Pulse Rate 128 H 93 68 Respiratory 20 20 18 Rate Blood Pressure 119/83 125/68 138/74 O2 Sat by Pulse 98 95 97 Oximetry 05/24/16 06:14 Temperature 98.4 F Pulse Rate 101 H Respiratory 20 Rate Blood Pressure 150/99 O2 Sat by Pulse 95 Oximetry - Reevaluation(s) Reevaluation #1: 05/23/16 19:18 At this time patient will be signed out to Dr. Abad. We are waiting for patient's sobriety for him to be medically cleared. (Ynes Borges) Medical Decision Making - Lab Data Result diagrams: 05/23/16 16:27 05/23/16 16:27 <Ynes Borges - Last Filed: 05/23/16 19:18> - Lab Data Result diagrams: 05/23/16 16:27 05/23/16 16:27 <Shane Vasquez - Last Filed: 05/24/16 06:28> - Medical Decision Making 50-year-old male presents to the emergency department with a chief complaint of suicidal ideation. (Ynes Borges) - Lab Data Lab Results 05/23/16 05/23/16 05/23/16 Range/Units 16:27 16:27 18:25 WBC 3.2 L (3.8-10.6) k/uL RBC 4.29 L (4.30-5.90) m/uL Hgb 14.9 (13.0-17.5) gm/dL Hct 44.5 (39.0-53.0) % MCV 103.8 H (80.0-100.0) fL MCH 34.8 (25.0-35.0) pg MCHC 33.5 (31.0-37.0) g/dL RDW 13.9 (11.5-15.5) % Plt Count 194 (150-450) k/uL Neutrophils % 42 % Lymphocytes % 44 % Monocytes % 7 % Eosinophils % 2 % Basophils % 2 % Neutrophils # 1.3 (1.3-7.7) k/uL Lymphocytes # 1.4 (1.0-4.8) k/uL Monocytes # 0.2 (0-1.0) k/uL Eosinophils # 0.1 (0-0.7) k/uL Basophils # 0.1 (0-0.2) k/uL Macrocytosis Slight Sodium 145 (137-145) mmol/L Potassium 3.7 (3.5-5.1) mmol/L Chloride 103 (98-107) mmol/L Carbon Dioxide 24 (22-30) mmol/L Anion Gap 18 mmol/L BUN 7 L (9-20) mg/dL Creatinine 0.79 (0.66-1.25) mg/dL Est GFR (MDRD) Af Amer >60 (>60 ml/min/1.73 sqM) Est GFR (MDRD) Non-Af >60 (>60 ml/min/1.73 sqM) Glucose 107 H (74-99) mg/dL Calcium 8.9 (8.4-10.2) mg/dL Phosphorus 3.3 (2.5-4.5) mg/dL Magnesium 2.1 (1.6-2.3) mg/dL Total Bilirubin 0.8 (0.2-1.3) mg/dL AST 172 H (17-59) U/L ALT 92 H (21-72) U/L Alkaline Phosphatase 87 (38-126) U/L Total Protein 7.6 (6.3-8.2) g/dL Albumin 4.4 (3.5-5.0) g/dL Urine Color Urine Appearance (Clear) Urine pH (5.0-8.0) Ur Specific [place] (1.001-1.035) Urine Protein (Negative) Urine Glucose (UA) (Negative) Urine Ketones (Negative) Urine Blood (Negative) Urine Nitrite (Negative) Urine Bilirubin (Negative) Urine Urobilinogen (<2.0) mg/dL Ur Leukocyte Esterase (Negative) Urine WBC (0-5) /hpf Ur Squamous Epith Cells (0-4) /hpf Hyaline Casts (0-2) /lpf Urine Mucus (None) /hpf Urine Opiates Screen Not Detected (NotDetected) Ur Oxycodone Screen Not Detected (NotDetected) Urine Methadone Screen Not Detected (NotDetected) Ur Propoxyphene Screen Not Detected (NotDetected) Ur Barbiturates Screen Not Detected (NotDetected) U Tricyclic Antidepress Not Detected (NotDetected) Ur Phencyclidine Scrn Not Detected (NotDetected) Ur Amphetamines Screen Not Detected (NotDetected) U Methamphetamines Scrn Not Detected (NotDetected) U Benzodiazepines Scrn Detected H (NotDetected) Urine Cocaine Screen Not Detected (NotDetected) U Marijuana (THC) Screen Not Detected (NotDetected) 05/23/16 Range/Units 18:25 WBC (3.8-10.6) k/uL RBC (4.30-5.90) m/uL Hgb (13.0-17.5) gm/dL Hct (39.0-53.0) % MCV (80.0-100.0) fL MCH (25.0-35.0) pg MCHC (31.0-37.0) g/dL RDW (11.5-15.5) % Plt Count (150-450) k/uL Neutrophils % % Lymphocytes % % Monocytes % % Eosinophils % % Basophils % % Neutrophils # (1.3-7.7) k/uL Lymphocytes # (1.0-4.8) k/uL Monocytes # (0-1.0) k/uL Eosinophils # (0-0.7) k/uL Basophils # (0-0.2) k/uL Macrocytosis Sodium (137-145) mmol/L Potassium (3.5-5.1) mmol/L Chloride (98-107) mmol/L Carbon Dioxide (22-30) mmol/L Anion Gap mmol/L BUN (9-20) mg/dL Creatinine (0.66-1.25) mg/dL Est GFR (MDRD) Af Amer (>60 ml/min/1.73 sqM) Est GFR (MDRD) Non-Af (>60 ml/min/1.73 sqM) Glucose (74-99) mg/dL Calcium (8.4-10.2) mg/dL Phosphorus (2.5-4.5) mg/dL Magnesium (1.6-2.3) mg/dL Total Bilirubin (0.2-1.3) mg/dL AST (17-59) U/L ALT (21-72) U/L Alkaline Phosphatase (38-126) U/L Total Protein (6.3-8.2) g/dL Albumin (3.5-5.0) g/dL Urine Color Yellow Urine Appearance Clear (Clear) Urine pH 6.0 (5.0-8.0) Ur Specific [place] 1.014 (1.001-1.035) Urine Protein 2+ H (Negative) Urine Glucose (UA) Negative (Negative) Urine Ketones Negative (Negative) Urine Blood Negative (Negative) Urine Nitrite Negative (Negative) Urine Bilirubin Negative (Negative) Urine Urobilinogen <2.0 (<2.0) mg/dL Ur Leukocyte Esterase Negative (Negative) Urine WBC 3 (0-5) /hpf Ur Squamous Epith Cells 1 (0-4) /hpf Hyaline Casts 42 H (0-2) /lpf Urine Mucus Moderate H (None) /hpf Urine Opiates Screen (NotDetected) Ur Oxycodone Screen (NotDetected) Urine Methadone Screen (NotDetected) Ur Propoxyphene Screen (NotDetected) Ur Barbiturates Screen (NotDetected) U Tricyclic Antidepress (NotDetected) Ur Phencyclidine Scrn (NotDetected) Ur Amphetamines Screen (NotDetected) U Methamphetamines Scrn (NotDetected) U Benzodiazepines Scrn (NotDetected) Urine Cocaine Screen (NotDetected) U Marijuana (THC) Screen (NotDetected) Disposition <Ynes Borges - Last Filed: 05/23/16 19:18> <Shane Vasquez - Last Filed: 05/24/16 06:28> Clinical Impression: Alcohol intoxication Disposition: HOME SELF-CARE Condition: Fair Instructions: Alcohol Intoxication (ED) Referrals: None,Stated [Primary Care Provider] - 1-2 days
[2016-05-23 16:41] LABS: Basophils # (A) 0.1 k/uL (0-0.2); Basophils % (A) 2 %; CH 34.4; CHCM 33.3; Eosinophils # (A) 0.1 k/uL (0-0.7); Eosinophils % (A) 2 %; HCT 44.5 % (39.0-53.0); HDW 2.43; HGB 14.9 gm/dL (13.0-17.5); Luc % (Auto) 3; Lymphocytes # (A) 1.4 k/uL (1.0-4.8); Lymphocytes % (A) 44 %; MCH 34.8 pg (25.0-35.0); MCHC 33.5 g/dL (31.0-37.0); MCV 103.8 fL (80.0-100.0); Macrocytosis Slight; Mean Platelet Volume 7.3; Monocytes # (A) 0.2 k/uL (0-1.0); Monocytes % (A) 7 %; Neutrophils # (A) 1.3 k/uL (1.3-7.7); Neutrophils % (A) 42 %; RBC 4.29 m/uL (4.30-5.90); RDW 13.9 % (11.5-15.5); WBC 3.2 k/uL (3.8-10.6); WBC (Perox) 3.12
[2016-05-23 16:51] LABS: ALT 92 U/L (21-72); AST 172 U/L (17-59); Alkaline Phosphatase 87 U/L (38-126); Anion Gap 18 mmol/L; Blood Urea Nitrogen 7 mg/dL (9-20); Calcium 8.9 mg/dL (8.4-10.2); Carbon Dioxide 24 mmol/L (22-30); Chloride 103 mmol/L (98-107); Glucose 107 mg/dL (74-99); Magnesium 2.1 mg/dL (1.6-2.3); Non-African American GFR(MDRD) >60 (>60 ml/min/1.73 sqM); Phosphorous 3.3 mg/dL (2.5-4.5); Potassium 3.7 mmol/L (3.5-5.1); Sodium 145 mmol/L (137-145); Total Bilirubin 0.8 mg/dL (0.2-1.3); Total Protein 7.6 g/dL (6.3-8.2)
[2016-05-23] MEDS ORDERED: SODIUM CHLORIDE 0.9% 1,000 ML with MVI, ADULT NO.4 WITH VIT K 10 ML, THIAMINE 100 MG, F... IV ONE ×4 (17:00)
[2016-05-23] MEDS ORDERED: LORazepam 2 MG/ML SYRINGE IV PRN ×2 (18:43)
[2016-05-23 18:50] LABS: Appearance,Urine Clear (Clear); Bilirubin,Urine Negative (Negative); Glucose,Urine (UA) Negative (Negative); Ketones,Urine Negative (Negative); Leukocyte Esterase,Urine Negative (Negative); Mucus,Urine Moderate /hpf; Nitrite,Urine Negative (Negative); Particle Count 10705; Protein,Urine 2+ (Negative); Specific Gravity,Urine 1.014 (1.001-1.035); Squamous Epithelial Cell,Urine 1 /hpf (0-4); UA Billing (MACRO vs. MICRO) MICRO; Urobilinogen,Urine <2.0 mg/dL (<2.0); WBC,Urine 3 /hpf (0-5)
[2016-05-23] MEDS: LORazepam 2 MG/ML SYRINGE IV PRN (18:59)
[2016-05-24] MEDS: LORazepam 2 MG/ML SYRINGE IV PRN ×3 (01:13→06:13)
[2016-05-24] MEDS ORDERED: ONDANSETRON 4 MG/2 ML VIAL IVP STA (05:05)
[2016-05-24 06:15] VITALS: BP 150/99; PULSE 101; RESP 20; TEMP 98.4
== END 2016-05-24 06:44 | disposition home or self-care (01) ==
LOC: EC 14:57
DX: F10.129 Alcohol abuse with intoxication, unspecified (principal); F41.9 Anxiety disorder, unspecified; F17.200 Nicotine dependence, unspecified, uncomplicated; Z79.899 Other long term (current) drug therapy
CPT/HCPCS: 99285; 96365; 96366 ×11; 96375 ×2; 96376 ×4; 96361; 82075; 36415; 80053; 83735; 84100; 85025; 81001; 80306; J2060 ×2; J3411; J2405

== ENCOUNTER 2016-05-26 18:19 | Emergency (ER) | payer OTHER ==
[2016-05-26 18:23] VITALS: TEMP 98.1
[2016-05-26] MEDS ORDERED: ONDANSETRON 4 MG/2 ML VIAL IVP STA (18:46)
[2016-05-26] MEDS ORDERED: SODIUM CHLORIDE 0.9% 1,000 ML IV STA ×2 (18:46)
[2016-05-26] MEDS ORDERED: LORazepam 2 MG/ML SYRINGE IV STA ×2 (18:46→21:33)
[2016-05-26] MEDS ORDERED: MORPHINE SULFATE 2 MG/ML SYRINGE IVP STA (18:46)
[2016-05-26] MEDS ORDERED: SODIUM CHLORIDE 0.9% 500 ML IV STA (18:46)
--- NOTE | 2016-05-26 19:49 | ED ---
General Adult HPI - General Chief complaint: Chest Pain Stated complaint: chest pain Time Seen by Provider: 05/26/16 18:46 Source: patient, RN notes reviewed, old records reviewed Mode of arrival: ambulatory Limitations: no limitations - History of Present Illness Initial comments: This is a 50-year-old male here for evaluation of chest pain. Anterior chest pain epigastric chest pain. Patient's history of psychiatric disease. History of ER visits for chest pain. She also admits to being alcoholic, he missed positive Alkol intake - Related Data Previous Rx's Medication Instructions Recorded Folic Acid 1 mg PO DAILY #30 tablet 05/06/16 Multivitamins, Thera [Multivitamin 1 tab PO DAILY #30 tablet 05/06/16 (formulary)] Pantoprazole [Protonix] 40 mg PO AC-BRKFST #30 tablet. 05/06/16 Thiamine [Vitamin B-1] 100 mg PO DAILY #30 tab 05/06/16 LORazepam [Ativan] 1 mg PO TID #30 tab 05/26/16 Ondansetron [Zofran] 4 mg PO Q8HR PRN #30 tab 05/26/16 Allergies Allergy/AdvReac Type Severity Reaction Status Date / Time No Known Allergies Allergy Verified 05/26/16 18:23 Review of Systems ROS Statement: Those systems with pertinent positive or pertinent negative responses have been documented in the HPI. ROS Other: All systems not noted in ROS Statement are negative. Past Medical History Past Medical History: Chest Pain / Angina, GERD/Reflux Additional Past Medical History / Comment(s): SEVERAL ADMISSIONS FOR ETOH INTOXICATION/WITHDRAWL AND C/P. Other HX: alcoholism, withdrawal tremors, withdrawal seizure, gastritis, upper GI bleed thought to be due to gastritis, hypomagnesemia, hypokalemia, tinnitis bilaterally. "upper bridge" History of Any Multi-Drug Resistant Organisms: None Reported Past Surgical History: No Surgical Hx Reported Additional Past Surgical History / Comment(s): FATTY TUMOR REMOVED FROM BACK, ORAL SX-WISDOM TEETH REMOVED. Past Anesthesia/Blood Transfusion Reactions: No Reported Reaction Past Psychological History: Anxiety, Depression Additional Psychological History / Comment(s): Pt resides w/girfreind He is independent. Has had suicidal ideations in the past. Smoking Status: Current every day smoker Past Alcohol Use History: Abuse, Daily, Heavy Additional Past Alcohol Use History / Comment(s): smoked marijuana as a teen - and rare use since. started smoking in 1978 smokes 1 ppd. admits to drinking 1 fifth of vodka per day. Past Drug Use History: Marijuana Additional Drug Use History / Comment(s): Smoked marijuana as a teen and now rare use - Past Family History Father History Unknown: Yes Family Medical History: Cancer, Hypertension, Myocardial Infarction (MT) Additional Family Medical History / Comment(s): Father of lung cancer at the age of 57yrs. He had a MT at the age of 49 yrs. Mother Family Medical History: Dementia Additional Family Medical History / Comment(s): Mother is 74 yrs old. General Exam Limitations: no limitations General appearance: alert, in no apparent distress, appears intoxicated Head exam: Present: atraumatic, normocephalic, normal inspection Eye exam: Present: normal appearance, PERRL, EOMI. Absent: scleral icterus, conjunctival injection, periorbital swelling ENT exam: Present: mucous membranes dry Neck exam: Present: normal inspection. Absent: tenderness, meningismus, lymphadenopathy Respiratory exam: Present: normal lung sounds bilaterally. Absent: respiratory distress, wheezes, rales, rhonchi, stridor Cardiovascular Exam: Present: normal rhythm, tachycardia, normal heart sounds. Absent: systolic murmur, diastolic murmur, rubs, gallop, clicks GI/Abdominal exam: Present: soft, normal bowel sounds. Absent: distended, tenderness, guarding, rebound, rigid Extremities exam: Present: normal inspection, full ROM, normal capillary refill. Absent: tenderness, pedal edema, joint swelling, calf tenderness Back exam: Present: normal inspection Neurological exam: Present: alert, oriented X3, CN II-XII intact Psychiatric exam: Present: normal affect, normal mood Skin exam: Present: warm, dry, intact, normal color. Absent: rash Course Vital Signs 05/26/16 05/26/16 05/26/16 18:21 20:45 21:07 Temperature 98.1 F Pulse Rate 135 H 97 Respiratory 20 18 20 Rate Blood Pressure 115/77 133/88 O2 Sat by Pulse 96 95 Oximetry - Reevaluation(s) Reevaluation #1: 05/26/16 21:35 Patient's symptoms are much improved, resolved with treatment here in the emergency room, patient admits to being hungry and able to eat EKG Findings - EKG Comments: EKG Findings:: EKG shows sinus tachycardia rate 122, MO 180, QRS 86, QTC 410 Medical Decision Making - Medical Decision Making 50 male year with alcoholism, patient coming in all cultural, Epigastric abdominal pain, no tenderness to palpation on abdomen. Patient's symptoms resolved with pain control Ativan, patient going to call withdrawal. Patient will be discharged home with medication, urged to call counseling, admits history of depression but no suicidal thoughts at this time. - Lab Data Result diagrams: 05/26/16 20:25 05/26/16 20:25 Lab Results 05/26/16 05/26/16 05/26/16 Range/Units 20:25 20:25 20:25 WBC 4.4 (3.8-10.6) k/uL RBC 4.13 L (4.30-5.90) m/uL Hgb 14.4 (13.0-17.5) gm/dL Hct 41.6 (39.0-53.0) % MCV 100.7 H (80.0-100.0) fL MCH 34.9 (25.0-35.0) pg MCHC 34.6 (31.0-37.0) g/dL RDW 13.5 (11.5-15.5) % Plt Count 104 L (150-450) k/uL Neutrophils % 56 % Lymphocytes % 34 % Monocytes % 5 % Eosinophils % 2 % Basophils % 1 % Neutrophils # 2.4 (1.3-7.7) k/uL Lymphocytes # 1.5 (1.0-4.8) k/uL Monocytes # 0.2 (0-1.0) k/uL Eosinophils # 0.1 (0-0.7) k/uL Basophils # 0.0 (0-0.2) k/uL PT (9.0-12.0) sec INR (<1.1) APTT (22.0-30.0) sec Sodium 143 (137-145) mmol/L Potassium 3.5 (3.5-5.1) mmol/L Chloride 100 (98-107) mmol/L Carbon Dioxide 27 (22-30) mmol/L Anion Gap 16 mmol/L BUN 9 (9-20) mg/dL Creatinine 0.78 (0.66-1.25) mg/dL Est GFR (MDRD) Af Amer >60 (>60 ml/min/1.73 sqM) Est GFR (MDRD) Non-Af >60 (>60 ml/min/1.73 sqM) Glucose 112 H (74-99) mg/dL Calcium 9.3 (8.4-10.2) mg/dL Phosphorus 2.7 (2.5-4.5) mg/dL Magnesium 2.0 (1.6-2.3) mg/dL Total Bilirubin 0.7 (0.2-1.3) mg/dL AST 118 H (17-59) U/L ALT 74 H (21-72) U/L Alkaline Phosphatase 87 (38-126) U/L Total Creatine Kinase 62 (55-170) U/L CK-MB (CK-2) 0.9 (0.0-2.4) ng/mL CK-MB (CK-2) Rel Index 1.5 Troponin I <0.012 (0.000-0.034) ng/mL NT-Pro-B Natriuret Pep pg/mL Total Protein 7.3 (6.3-8.2) g/dL Albumin 4.2 (3.5-5.0) g/dL Lipase 191 (23-300) U/L 05/26/16 05/26/16 Range/Units 20:25 20:25 WBC (3.8-10.6) k/uL RBC (4.30-5.90) m/uL Hgb (13.0-17.5) gm/dL Hct (39.0-53.0) % MCV (80.0-100.0) fL MCH (25.0-35.0) pg MCHC (31.0-37.0) g/dL RDW (11.5-15.5) % Plt Count (150-450) k/uL Neutrophils % % Lymphocytes % % Monocytes % % Eosinophils % % Basophils % % Neutrophils # (1.3-7.7) k/uL Lymphocytes # (1.0-4.8) k/uL Monocytes # (0-1.0) k/uL Eosinophils # (0-0.7) k/uL Basophils # (0-0.2) k/uL PT 9.6 (9.0-12.0) sec INR 0.9 (<1.1) APTT 22.5 (22.0-30.0) sec Sodium (137-145) mmol/L Potassium (3.5-5.1) mmol/L Chloride (98-107) mmol/L Carbon Dioxide (22-30) mmol/L Anion Gap mmol/L BUN (9-20) mg/dL Creatinine (0.66-1.25) mg/dL Est GFR (MDRD) Af Amer (>60 ml/min/1.73 sqM) Est GFR (MDRD) Non-Af (>60 ml/min/1.73 sqM) Glucose (74-99) mg/dL Calcium (8.4-10.2) mg/dL Phosphorus (2.5-4.5) mg/dL Magnesium (1.6-2.3) mg/dL Total Bilirubin (0.2-1.3) mg/dL AST (17-59) U/L ALT (21-72) U/L Alkaline Phosphatase (38-126) U/L Total Creatine Kinase (55-170) U/L CK-MB (CK-2) (0.0-2.4) ng/mL CK-MB (CK-2) Rel Index Troponin I (0.000-0.034) ng/mL NT-Pro-B Natriuret Pep 54 pg/mL Total Protein (6.3-8.2) g/dL Albumin (3.5-5.0) g/dL Lipase (23-300) U/L - Radiology Data Radiology results: report reviewed (Chest x-ray is negative for acute disease), image reviewed Disposition Clinical Impression: Alcohol intoxication, Chest pain, Depression, Alcohol withdrawal Disposition: ADMITTED IP TO THIS [facility] Condition: Fair Instructions: Chest Pain (ED) Prescriptions: LORazepam [Ativan] 1 mg PO TID #30 tab Ondansetron [Zofran] 4 mg PO Q8HR PRN #30 tab PRN Reason: Nausea
--- NOTE | 2016-05-26 20:26 | XR ---
EXAMINATION TYPE: XR chest 2V DATE OF EXAM: 05/26/2016 8:18 PM COMPARISON: 05/04/2016 HISTORY: Shortness of breath TECHNIQUE: Frontal and lateral views of the chest are obtained. FINDINGS: Scattered senescent parenchymal changes noted. Hyperinflation compatible with COPD. No evidence for infiltrate. No evidence for atelectasis. Heart size is stable. Mediastinal structures are stable and grossly unremarkable. No evidence for hilar prominence. Degenerative changes dorsal spine. IMPRESSION: 1. No evidence for acute pulmonary disease.
[2016-05-26 20:41] LABS: Basophils % (A) 1 %; CHCM 33.9; Eosinophils # (A) 0.1 k/uL (0-0.7); Eosinophils % (A) 2 %; HCT 41.6 % (39.0-53.0); HDW 2.44; HGB 14.4 gm/dL (13.0-17.5); Luc # (Auto) 0.08; Luc % (Auto) 2; Lymphocytes # (A) 1.5 k/uL (1.0-4.8); Lymphocytes % (A) 34 %; MCH 34.9 pg (25.0-35.0); MCHC 34.6 g/dL (31.0-37.0); MCV 100.7 fL (80.0-100.0); Mean Platelet Volume 9.1; Monocytes # (A) 0.2 k/uL (0-1.0); Monocytes % (A) 5 %; Neutrophils # (A) 2.4 k/uL (1.3-7.7); Neutrophils % (A) 56 %; RBC 4.13 m/uL (4.30-5.90); RDW 13.5 % (11.5-15.5); WBC 4.4 k/uL (3.8-10.6); WBC (Perox) 4.26
[2016-05-26 20:45] VITALS: BP 133/88; PULSE 97
[2016-05-26 20:50] LABS: INR 0.9 (<1.1); Partial Thromboplastin Time 22.5 sec (22.0-30.0); Prothrombin Time 9.6 sec (9.0-12.0)
[2016-05-26 20:57] LABS: ALT 74 U/L (21-72); AST 118 U/L (17-59); Alkaline Phosphatase 87 U/L (38-126); Anion Gap 16 mmol/L; Blood Urea Nitrogen 9 mg/dL (9-20); Calcium 9.3 mg/dL (8.4-10.2); Carbon Dioxide 27 mmol/L (22-30); Chloride 100 mmol/L (98-107); Glucose 112 mg/dL (74-99); Non-African American GFR(MDRD) >60 (>60 ml/min/1.73 sqM); Phosphorous 2.7 mg/dL (2.5-4.5); Potassium 3.5 mmol/L (3.5-5.1); Sodium 143 mmol/L (137-145); Total Bilirubin 0.7 mg/dL (0.2-1.3); Total Protein 7.3 g/dL (6.3-8.2)
[2016-05-26 21:03] LABS: Creatine Kinase 62 U/L (55-170)
[2016-05-26 21:09] VITALS: RESP 20
[2016-05-26 21:15] LABS: Creatine Kinase MB 0.9 ng/mL (0.0-2.4); Troponin I <0.012 ng/mL (0.000-0.034)
[2016-05-26] MEDS ORDERED: MORPHINE SULFATE 4 MG/ML SYRINGE IVP STA (21:33)
[2016-05-26] MEDS ORDERED: PANTOPRAZOLE 40 MG/10 ML VIAL IVP STA (21:33)
--- NOTE | 2016-05-26 22:04 | ED ---
Medical Decision Making - Lab Data Result diagrams: 05/26/16 20:25 05/26/16 20:25 Lab Results 05/26/16 05/26/16 05/26/16 Range/Units 20:25 20:25 20:25 WBC 4.4 (3.8-10.6) k/uL RBC 4.13 L (4.30-5.90) m/uL Hgb 14.4 (13.0-17.5) gm/dL Hct 41.6 (39.0-53.0) % MCV 100.7 H (80.0-100.0) fL MCH 34.9 (25.0-35.0) pg MCHC 34.6 (31.0-37.0) g/dL RDW 13.5 (11.5-15.5) % Plt Count 104 L (150-450) k/uL Neutrophils % 56 % Lymphocytes % 34 % Monocytes % 5 % Eosinophils % 2 % Basophils % 1 % Neutrophils # 2.4 (1.3-7.7) k/uL Lymphocytes # 1.5 (1.0-4.8) k/uL Monocytes # 0.2 (0-1.0) k/uL Eosinophils # 0.1 (0-0.7) k/uL Basophils # 0.0 (0-0.2) k/uL PT (9.0-12.0) sec INR (<1.1) APTT (22.0-30.0) sec Sodium 143 (137-145) mmol/L Potassium 3.5 (3.5-5.1) mmol/L Chloride 100 (98-107) mmol/L Carbon Dioxide 27 (22-30) mmol/L Anion Gap 16 mmol/L BUN 9 (9-20) mg/dL Creatinine 0.78 (0.66-1.25) mg/dL Est GFR (MDRD) Af Amer >60 (>60 ml/min/1.73 sqM) Est GFR (MDRD) Non-Af >60 (>60 ml/min/1.73 sqM) Glucose 112 H (74-99) mg/dL Calcium 9.3 (8.4-10.2) mg/dL Phosphorus 2.7 (2.5-4.5) mg/dL Magnesium 2.0 (1.6-2.3) mg/dL Total Bilirubin 0.7 (0.2-1.3) mg/dL AST 118 H (17-59) U/L ALT 74 H (21-72) U/L Alkaline Phosphatase 87 (38-126) U/L Total Creatine Kinase 62 (55-170) U/L CK-MB (CK-2) 0.9 (0.0-2.4) ng/mL CK-MB (CK-2) Rel Index 1.5 Troponin I <0.012 (0.000-0.034) ng/mL NT-Pro-B Natriuret Pep pg/mL Total Protein 7.3 (6.3-8.2) g/dL Albumin 4.2 (3.5-5.0) g/dL Lipase 191 (23-300) U/L 05/26/16 05/26/16 Range/Units 20:25 20:25 WBC (3.8-10.6) k/uL RBC (4.30-5.90) m/uL Hgb (13.0-17.5) gm/dL Hct (39.0-53.0) % MCV (80.0-100.0) fL MCH (25.0-35.0) pg MCHC (31.0-37.0) g/dL RDW (11.5-15.5) % Plt Count (150-450) k/uL Neutrophils % % Lymphocytes % % Monocytes % % Eosinophils % % Basophils % % Neutrophils # (1.3-7.7) k/uL Lymphocytes # (1.0-4.8) k/uL Monocytes # (0-1.0) k/uL Eosinophils # (0-0.7) k/uL Basophils # (0-0.2) k/uL PT 9.6 (9.0-12.0) sec INR 0.9 (<1.1) APTT 22.5 (22.0-30.0) sec Sodium (137-145) mmol/L Potassium (3.5-5.1) mmol/L Chloride (98-107) mmol/L Carbon Dioxide (22-30) mmol/L Anion Gap mmol/L BUN (9-20) mg/dL Creatinine (0.66-1.25) mg/dL Est GFR (MDRD) Af Amer (>60 ml/min/1.73 sqM) Est GFR (MDRD) Non-Af (>60 ml/min/1.73 sqM) Glucose (74-99) mg/dL Calcium (8.4-10.2) mg/dL Phosphorus (2.5-4.5) mg/dL Magnesium (1.6-2.3) mg/dL Total Bilirubin (0.2-1.3) mg/dL AST (17-59) U/L ALT (21-72) U/L Alkaline Phosphatase (38-126) U/L Total Creatine Kinase (55-170) U/L CK-MB (CK-2) (0.0-2.4) ng/mL CK-MB (CK-2) Rel Index Troponin I (0.000-0.034) ng/mL NT-Pro-B Natriuret Pep 54 pg/mL Total Protein (6.3-8.2) g/dL Albumin (3.5-5.0) g/dL Lipase (23-300) U/L Disposition Clinical Impression: Alcohol intoxication, Chest pain, Depression, Alcohol withdrawal Disposition: HOME SELF-CARE Condition: Fair Instructions: Chest Pain (ED) Prescriptions: LORazepam [Ativan] 1 mg PO TID #30 tab Ondansetron [Zofran] 4 mg PO Q8HR PRN #30 tab PRN Reason: Nausea Referrals: None,Stated [Primary Care Provider] - 1-2 days
== END 2016-05-26 22:27 | disposition home or self-care (01) ==
LOC: EC 18:19
DX: R07.89 Other chest pain (principal); F32.9 Major depressive disorder, single episode, unspecified; F10.239 Alcohol dependence with withdrawal, unspecified; F10.229 Alcohol dependence with intoxication, unspecified; R10.13 Epigastric pain; F17.200 Nicotine dependence, unspecified, uncomplicated
CPT/HCPCS: 36415; 93005; 83880; 80053; 82550; 82553; 83690; 83735; 84100; 84484; 85025; 85610; 85730; 71020; 99285; 96374; 96375 ×3; 96376 ×2; 96361; J2060; J2270 ×2; J2405; C9113

== ENCOUNTER 2016-11-16 18:10 | Emergency (ER) | payer OTHER ==
[2016-11-16 18:14] VITALS: BP 134/83; PULSE 125; RESP 20; TEMP 98
--- NOTE | 2016-11-16 18:49 | ED ---
General Adult HPI - General Chief complaint: Chest Pain Stated complaint: Chest Pain, Diff Breathing Time Seen by Provider: 11/16/16 18:37 Source: patient Mode of arrival: wheelchair Limitations: no limitations - History of Present Illness Initial comments: This 51-year-old white male presents complaining of anxiety reaction. He states that approximately 2 hours ago he developed some chest pain, shortness of breath, and hyperventilation. He states that he has been stressed out as he was just recently hospitalized. He was set up to have a stress test in the next several days. He states that he has been worrying about this quite a bit. He does have a history of previous anxiety reactions and states that this is very classic for them. He states that he feels better now and his symptoms have resolved. He is refusing any further workup or treatment. He denies any other complaints or modifying factors. There is no leg pain or swelling or history of DVT or PE. He does relate that he had a couple of drinks earlier today but is not drunk currently. - Related Data Home Medications Medication Instructions Recorded Confirmed HYDROcodone/APAP 10-325MG [[place] 1 tab PO Q6H PRN 11/16/16 11/16/16 10-325] Previous Rx's Medication Instructions Recorded Aspirin 81 mg PO DAILY 11/14/16 Labetalol [Trandate] 100 mg PO BID #60 tab 11/14/16 Pantoprazole [Protonix] 40 mg PO AC-BID #60 tab 11/14/16 amLODIPine [Norvasc] 5 mg PO DAILY #30 tab 11/14/16 Allergies Allergy/AdvReac Type Severity Reaction Status Date / Time No Known Allergies Allergy Verified 11/16/16 18:26 Review of Systems ROS Statement: Those systems with pertinent positive or pertinent negative responses have been documented in the HPI. ROS Other: All systems not noted in ROS Statement are negative. Past Medical History Past Medical History: Chest Pain / Angina, GERD/Reflux Additional Past Medical History / Comment(s): SEVERAL ADMISSIONS FOR ETOH INTOXICATION/WITHDRAWL AND C/P. Other HX: alcoholism, withdrawal tremors, withdrawal seizure, gastritis, upper GI bleed thought to be due to gastritis, hypomagnesemia, hypokalemia, tinnitis bilaterally. "upper bridge" History of Any Multi-Drug Resistant Organisms: None Reported Past Surgical History: No Surgical Hx Reported Additional Past Surgical History / Comment(s): FATTY TUMOR REMOVED FROM BACK, ORAL SX-WISDOM TEETH REMOVED. Past Anesthesia/Blood Transfusion Reactions: No Reported Reaction Past Psychological History: Anxiety, Depression Smoking Status: Current every day smoker Past Alcohol Use History: Abuse, Daily, Heavy Past Drug Use History: Marijuana - Past Family History Father History Unknown: Yes Family Medical History: Cancer, Hypertension, Myocardial Infarction ([place]) Additional Family Medical History / Comment(s): Father of lung cancer at the age of 57yrs. He had a [place] at the age of 49 yrs. Mother Family Medical History: Dementia Additional Family Medical History / Comment(s): Mother is 74 yrs old. General Exam - General Exam Comments Initial Comments: GENERAL: The patient is well nourished and well hydrated. VITAL SIGNS: Heart rate, blood pressure, respiratory rate reviewed as recorded in nurse's notes. EYES: Pupils are round and reactive. Extraocular movements are intact. No conjunctival / lid redness or swelling. ENT: No external evidence of injury, swelling, or ecchymosis. Airway is patent. Throat is clear. NECK: Nontender. No swelling or evidence of injury. No subcutaneous emphysema. Trachea is midline. No thyroid mass. HEART: Regular rate and rhythm. Good peripheral pulses. LUNGS/CHEST: Breath sounds clear and equal bilaterally. No rales, rhonchi, or wheezes. No ecchymosis, subcutaneous emphysema, or tenderness. ABDOMEN: Abdomen soft without tenderness. No palpable masses or organomegaly. No peritoneal signs. No abdominal wall swelling or ecchymosis. EXTREMITIES: No extremity tenderness. Normal muscle tone and function. No thoracolumbar tenderness. NEUROLOGIC: Sensation is grossly intact. Cranial nerve exam reveals face is symmetrical, tongue is midline, speech is clear. SKIN: No abrasions or ecchymosis is noted. No induration or masses noted. PSYCHIATRIC: Alert and oriented. Appropriate behavior and judgment. Limitations: no limitations Course Vital Signs 11/16/16 18:12 Temperature 98.0 F Pulse Rate 125 H Respiratory 20 Rate Blood Pressure 134/83 O2 Sat by Pulse 90 L Oximetry Medical Decision Making - Medical Decision Making The patient was seen and examined. All diagnostics were reviewed. This started include a EKG which shows a sinus tachycardia at a rate of 112. There is no acute ST-T wave changes noted. There is evidence of a left anterior fascicular block. The KS intervals 150, QRS duration is 90, and the QTc interval is 455. The patient states that his symptoms have resolved at this point in time and he does not want any further workup. There was discussed with him that we have not thoroughly evaluated his symptomatology but he relates that his symptoms are very classic for his normal anxiety reactions. He also notes that he is having a stress test in the next couple days. He is agreeable to return if his symptoms reoccur or worsen. He is alert and oriented does not appear to be clinically intoxicated currently. Is felt that he is lucidand medical decision-making intact to refused further testing. He leaves in no identifiable distress and is counseled regarding anxiety reactions. Disposition Clinical Impression: Anxiety reaction, Chest pain, Dyspnea Disposition: HOME SELF-CARE Condition: Good Instructions: Chest Pain (ED), Panic Attack (ED) Referrals: None,Stated [Primary Care Provider] - 1-2 days Time of Disposition: 18:49
== END 2016-11-16 19:05 | disposition home or self-care (01) ==
LOC: EC 18:10
DX: F41.1 Generalized anxiety disorder (principal); I44.4 Left anterior fascicular block; F17.200 Nicotine dependence, unspecified, uncomplicated; Z82.49 Family history of ischemic heart disease and other diseases of the circulatory system
CPT/HCPCS: 93005; 99284

== ENCOUNTER 2016-11-20 18:01 | Emergency (ER) | payer OTHER ==
[2016-11-20 18:19] VITALS: BP 125/70; PULSE 107; RESP 18; TEMP 97.5
--- NOTE | 2016-11-20 18:31 | ED ---
General Adult HPI - General Chief complaint: Chest Pain Stated complaint: chest pain Time Seen by Provider: 11/20/16 18:09 Source: patient, RN notes reviewed, old records reviewed Mode of arrival: EMS Limitations: no limitations - History of Present Illness Initial comments: This is a 51-year-old male to the ER for evaluation today. This patient does present for evaluation and stateshe received is having anxiety. Patient does admit to drinking a quantity. Patient has recent ER visits and hospitalizations for chest pain as well as alcohol intoxication. As patient's coming into his room he states that heis anxiety attack at this point he is a decision that he wants to go home. Patient poor strain secondary to not wanting to answer questions further - Related Data Home Medications Medication Instructions Recorded Confirmed HYDROcodone/APAP 10-325MG [[place] 1 tab PO Q6H PRN 11/16/16 11/21/16 10-325] Previous Rx's Medication Instructions Recorded Aspirin 81 mg PO DAILY 11/14/16 Labetalol [Trandate] 100 mg PO BID #60 tab 11/14/16 Pantoprazole [Protonix] 40 mg PO AC-BID #60 tab 11/14/16 amLODIPine [Norvasc] 5 mg PO DAILY #30 tab 11/14/16 Allergies Allergy/AdvReac Type Severity Reaction Status Date / Time No Known Allergies Allergy Verified 11/21/16 11:49 Review of Systems ROS Statement: Those systems with pertinent positive or pertinent negative responses have been documented in the HPI. ROS Other: All systems not noted in ROS Statement are negative. Past Medical History Past Medical History: Chest Pain / Angina, GERD/Reflux Additional Past Medical History / Comment(s): SEVERAL ADMISSIONS FOR ETOH INTOXICATION/WITHDRAWL AND C/P. Other HX: alcoholism, withdrawal tremors, withdrawal seizure, gastritis, upper GI bleed thought to be due to gastritis, hypomagnesemia, hypokalemia, tinnitis bilaterally. "upper bridge" History of Any Multi-Drug Resistant Organisms: None Reported Past Surgical History: No Surgical Hx Reported Additional Past Surgical History / Comment(s): FATTY TUMOR REMOVED FROM BACK, ORAL SX-WISDOM TEETH REMOVED. Past Anesthesia/Blood Transfusion Reactions: No Reported Reaction Past Psychological History: Anxiety, Depression Smoking Status: Current every day smoker Past Alcohol Use History: Abuse, Daily, Heavy Past Drug Use History: Marijuana - Past Family History Father History Unknown: Yes Family Medical History: Cancer, Hypertension, Myocardial Infarction ([place]) Additional Family Medical History / Comment(s): Father of lung cancer at the age of 57yrs. He had a [place] at the age of 49 yrs. Mother Family Medical History: Dementia Additional Family Medical History / Comment(s): Mother is 74 yrs old. General Exam Limitations: no limitations General appearance: alert, in no apparent distress, appears intoxicated Head exam: Present: atraumatic, normocephalic, normal inspection Eye exam: Present: normal appearance, PERRL, EOMI. Absent: scleral icterus, conjunctival injection, periorbital swelling ENT exam: Present: normal exam, mucous membranes moist Neck exam: Present: normal inspection. Absent: tenderness, meningismus, lymphadenopathy Respiratory exam: Present: normal lung sounds bilaterally. Absent: respiratory distress, wheezes, rales, rhonchi, stridor Cardiovascular Exam: Present: regular rate, normal rhythm, normal heart sounds. Absent: systolic murmur, diastolic murmur, rubs, gallop, clicks GI/Abdominal exam: Present: soft, normal bowel sounds. Absent: distended, tenderness, guarding, rebound, rigid Extremities exam: Present: normal inspection, full ROM, normal capillary refill. Absent: tenderness, pedal edema, joint swelling, calf tenderness Back exam: Present: normal inspection Neurological exam: Present: alert, oriented X3, CN II-XII intact Psychiatric exam: Present: normal affect, normal mood Skin exam: Present: warm, dry, intact, normal color. Absent: rash Course Vital Signs 11/20/16 18:18 Temperature 97.5 F L Pulse Rate 107 H Respiratory 18 Rate Blood Pressure 125/70 O2 Sat by Pulse 100 Oximetry Medical Decision Making - Medical Decision Making 48 female for evaluation of chest pain. Patient is mildly intoxicated but able to ambulate without difficulty. Patient states he is positive that this chest pain is being admitted to the hospital today is related to anxiety and he wants to go home, he does not further, wants no testing, and is signing out AGAINST MEDICAL ADVICE. This time patient is awake alert answering questions appropriately and will sign out AMA Disposition Clinical Impression: Alcohol intoxication, Chest pain Disposition: Left Against Medical Advice Condition: Undetermined Referrals: None,Stated [Primary Care Provider] - 1-2 days
== END 2016-11-20 18:37 | disposition left against medical advice (07) ==
LOC: EC 18:01
DX: R07.9 Chest pain, unspecified (principal); F10.129 Alcohol abuse with intoxication, unspecified; F41.9 Anxiety disorder, unspecified; F17.200 Nicotine dependence, unspecified, uncomplicated
CPT/HCPCS: 99285